=== PATIENT | male | born 1985 | race American Indian/Alaskan Native ===

== ENCOUNTER 2016-08-08 01:03 | Emergency (ER) | payer OTHER ==
[2016-08-08 01:35] VITALS: BP 153/82; PULSE 71; RESP 18; TEMP 97.7; O2SAT 96
--- NOTE | 2016-08-08 02:27 | C.PDOC ---
History Of Present Illness 30 year old patient presents to the ED complaining of left elbow swelling for about 1.5 weeks. Patient denies any pain, trauma, fever, numbness, or weakness. Time Seen by Provider: 08/08/16 02:04 Chief Complaint (Nursing): Upper Extremity Problem/Injury History Per: Patient History/Exam Limitations: no limitations Onset/Duration Of Symptoms: Other (1.5 weeks) Current Symptoms Are (Timing): Still Present Quality: Other (swelling) Severity: None Pain Scale Rating Of: 0 Exacerbating Factor(s): Nothing Recent travel outside of the [place]: No Past Medical History Reviewed: Historical Data, Nursing Documentation, Vital Signs Vital Signs: Last Vital Signs Temp 97.7 F 08/08/16 01:30 Pulse 71 08/08/16 01:30 Resp 18 08/08/16 01:30 BP 153/82 H 08/08/16 01:30 Pulse Ox 96 08/08/16 03:29 - Medical History PMH: Asthma Family History: States: Unknown Family Hx - Social History Hx Tobacco Use: No Hx Alcohol Use: Yes Hx Substance Use: No - Immunization History Hx Tetanus Toxoid Vaccination: No Hx Influenza Vaccination: No Hx Pneumococcal Vaccination: No Review Of Systems Except As Marked, All Systems Reviewed And Found Negative. Constitutional: Negative for: Fever Musculoskeletal: Positive for: Other (left elbow swelling) Neurological: Negative for: Weakness, Numbness Physical Exam - Physical Exam Appears: Non-toxic, No Acute Distress Skin: Warm, Dry Eye(s): bilateral: PERRL, EOMI Cardiovascular: Rhythm Regular Respiratory: No Accessory Muscle Use Extremity: Normal ROM, No Pedal Edema, No Calf Tenderness, Capillary Refill (<2 seconds), No Deformity, Swelling (minimal effusion to the left elbow (+)normal pulse (+)normal sensation (+)normal ROM (-)tenderness (-)fluctuance (-)warmth) Neurological/Psych: Oriented x3, Normal Motor, Normal Sensation ED Course And Treatment O2 Sat by Pulse Oximetry: 96 (RA) Pulse Ox Interpretation: Normal Progress Note: Patient is advised to take Motrin to alleviate the symptoms. Patient is instructed to follow up with PMD for further evaluation. Return if symptoms worsen. 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 - Scribe Statement The provider has reviewed the documentation as recorded by the Scribe Addie Rao All medical record entries made by the Scribe were at my direction and personally dictated by me. I have reviewed the chart and agree that the record accurately reflects my personal performance of the history, physical exam, medical decision making, and the department course for this patient. I have also personally directed, reviewed, and agree with the discharge instructions and disposition.
== END 2016-08-08 02:20 | disposition home or self-care (01) ==
LOC: C.ER 01:03
DX: M71.522 Other bursitis, not elsewhere classified, left elbow (principal)

== ENCOUNTER 2016-11-15 09:17 | Emergency (ER) | payer OTHER ==
[2016-11-15 09:25] VITALS: BP 155/97; PULSE 83; TEMP 97.9; O2SAT 100
[2016-11-15] MEDS: Albuterol-Ipratrop 3 mg / 0.5 (3 ml) UD IH SCH ×3 (10:05→10:25)
[2016-11-15] MEDS ORDERED: Albuterol-Ipratrop 3 mg / 0.5 (3 ml) UD ONE (10:07)
--- NOTE | 2016-11-15 10:30 | C.PDOC ---
History Of Present Illness 30-year-old male, presents to the emergency department with complaints of asthma exacerbation. Patient states he has been experiencing worsening shortness of breath yesterday associated with wheezing. Patient states symptoms feel like prior asthma exacerbation. States he is using nebulizer at home with minimal relief, resulting in him coming to the ED for evaluation. Denies fevers , chest pain, or any other associated symptoms. No other complaints at this time. Time Seen by Provider: 11/15/16 09:34 Chief Complaint (Nursing): Shortness Of Breath History Per: Patient History/Exam Limitations: no limitations Onset/Duration Of Symptoms: Days Current Symptoms Are (Timing): Still Present Past Medical History Reviewed: Historical Data, Nursing Documentation, Vital Signs Vital Signs: Last Vital Signs Temp 97.9 F 11/15/16 09:24 Pulse 83 11/15/16 09:24 Resp 18 11/15/16 10:49 BP 155/97 H 11/15/16 09:24 Pulse Ox 100 11/15/16 16:35 - Medical History PMH: Asthma Family History: States: No Known Family Hx - Social History Hx Tobacco Use: No Hx Alcohol Use: Yes Hx Substance Use: No - Immunization History Hx Tetanus Toxoid Vaccination: No Hx Influenza Vaccination: No Hx Pneumococcal Vaccination: No Review Of Systems Except As Marked, All Systems Reviewed And Found Negative. Constitutional: Negative for: Fever Cardiovascular: Negative for: Chest Pain Respiratory: Positive for: Shortness of Breath, Wheezing Gastrointestinal: Negative for: Vomiting Physical Exam - Physical Exam Appears: Non-toxic, No Acute Distress Skin: Warm, Dry, No Rash Nose: Normal Oral Mucosa: Moist Neck: Normal ROM Cardiovascular: Rhythm Regular, No Murmur Respiratory: No Accessory Muscle Use, Wheezing (B/L expiratory) Extremity: Normal ROM Neurological/Psych: Oriented x3, Normal Speech ED Course And Treatment O2 Sat by Pulse Oximetry: 100 Progress Note: Treated with duonebs x 3 and prednisone 60 mg PO. On re- evaluation lungs clear, requesting discharge Reassessment Condition: Improved Disposition - Disposition Referrals: [facility] [Outside] [facility] [Outside] Disposition: HOME/ ROUTINE Disposition Time: 11:00 Condition: IMPROVED Additional Instructions: Return to ED if any increase symptoms Prescriptions: Albuterol HFA [Ventolin HFA 90 mcg/actuation (8 g)] 2 puff IH [id number] #1 puff predniSONE [Prednisone] 40 mg PO DAILY #4 tab Instructions: Asthma (ED) Forms: [employer] (Icelandic) - Clinical Impression Clinical Impression: Asthma, Asthma exacerbation - Scribe Statement The provider has reviewed the documentation as recorded by the Scribe (Sergo Thakur) All medical record entries made by the Scribe were at my direction and personally dictated by me. I have reviewed the chart and agree that the record accurately reflects my personal performance of the history, physical exam, medical decision making, and the department course for this patient. I have also personally directed, reviewed, and agree with the discharge instructions and disposition.
[2016-11-15 11:02] VITALS: RESP 18
== END 2016-11-15 10:49 | disposition home or self-care (01) ==
LOC: C.ER 09:17
DX: J45.901 Unspecified asthma with (acute) exacerbation (principal)

== ENCOUNTER 2016-12-28 10:17 | Emergency (ER) | payer SELFPAY ==
[2016-12-28 10:38] VITALS: BMI 27.3
[2016-12-28 10:40] VITALS: RESP 18; O2SAT 98
[2016-12-28] MEDS ORDERED: Albuterol-Ipratrop 3 mg / 0.5 (3 ml) UD INH STA (10:55)
[2016-12-28] MEDS ORDERED: Albuterol-Ipratrop 3 mg / 0.5 (3 ml) UD ONE (11:00)
--- NOTE | 2016-12-28 11:07 | C.PDOC ---
History Of Present Illness 31 y/o male with Hx of Asthma presents to ED with complaints of worsening sob for 1 week. Patient also reports non productive cough and states he ran out of albuterol pump and nebulizer 1 week ago. Patient has not been able to use inhaler as he normally does at night time and is requesting medication refill. Patient denies fever, chills and reports current symptoms consistent with prior asthma episodes. No other complaints at this time. Time Seen by Provider: 12/28/16 10:55 Chief Complaint (Nursing): Shortness Of Breath History Per: Patient History/Exam Limitations: no limitations Onset/Duration Of Symptoms: Days Current Symptoms Are (Timing): Still Present Initiating Event: Upper Respiratory Illness Past Medical History Reviewed: Historical Data, Nursing Documentation, Vital Signs Vital Signs: Last Vital Signs Temp 98.9 F 12/28/16 10:39 Pulse 81 12/28/16 10:39 Resp 18 12/28/16 10:39 BP 119/85 12/28/16 10:39 Pulse Ox 98 12/28/16 11:49 - Medical History PMH: Asthma Surgical History: No Surg Hx Family History: States: No Known Family Hx - Social History Hx Tobacco Use: No Hx Alcohol Use: Yes Hx Substance Use: No - Immunization History Hx Tetanus Toxoid Vaccination: No Hx Influenza Vaccination: Yes (01/2016) Hx Pneumococcal Vaccination: No Review Of Systems Except As Marked, All Systems Reviewed And Found Negative. Constitutional: Negative for: Fever, Chills Cardiovascular: Negative for: Chest Pain, Palpitations, Orthopnea, Edema, Light Headedness Respiratory: Positive for: Cough, Shortness of Breath, Wheezing. Negative for: SOB with Excertion, Sputum Gastrointestinal: Negative for: Nausea, Vomiting, Abdominal Pain, Diarrhea, Constipation Genitourinary: Negative for: Dysuria Skin: Negative for: Rash Physical Exam - Physical Exam Appears: Well, Non-toxic Skin: Normal Color, Warm, Dry, No Rash Head: Normacephalic, No Swelling Eye(s): bilateral: Normal Inspection, PERRL, EOMI Nose: Normal Oral Mucosa: Moist Throat: Normal, No Erythema Neck: Normal ROM, Supple Chest: Symmetrical Cardiovascular: Rhythm Regular, No Murmur Respiratory: No Rales, No Rhonchi, Wheezing, Other (Decreased air entry) Gastrointestinal/Abdominal: Soft, No Tenderness, No Distention, No Guarding, No Rebound Extremity: Normal ROM Neurological/Psych: Oriented x3 ED Course And Treatment O2 Sat by Pulse Oximetry: 98 (RA) Pulse Ox Interpretation: Normal Medical Decision Making Medical Decision Making: Plan: Medication Refill Prednisone Nebulizer Treatment Re-evaluation 11:46AM Patient reports the he feels better. Lungs cta b/l now. Repeat PF:500 Disposition - Disposition Disposition: HOME/ ROUTINE Disposition Time: 11:46 Condition: GOOD Additional Instructions: Take prednisone. Use albuterol as needed. Return to ED if condition worsens. Follow-up with PMD within 2 days. 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 - Scribe Statement The provider has reviewed the documentation as recorded by the Dionne Murry All medical record entries made by the Emaniibjonathan were at my direction and personally dictated by me. I have reviewed the chart and agree that the record accurately reflects my personal performance of the history, physical exam, medical decision making, and the department course for this patient. I have also personally directed, reviewed, and agree with the discharge instructions and disposition.
[2016-12-28 12:06] VITALS: BP 144/76; PULSE 82; TEMP 98.1
== END 2016-12-28 12:10 | disposition home or self-care (01) ==
LOC: C.ER 10:17
DX: J45.901 Unspecified asthma with (acute) exacerbation (principal)

== ENCOUNTER 2017-07-18 08:53 | Emergency (ER) | payer OTHER ==
[2017-07-18 08:53] VITALS: BMI 27.3
[2017-07-18 09:16] VITALS: O2SAT 99
[2017-07-18] MEDS ORDERED: Albuterol 0.083% Inhal Sol (2.5 mg/3 mL) UD INH STA (09:39)
--- NOTE | 2017-07-18 09:41 | C.PDOC ---
History Of Present Illness ASTHMA EXAC SINCE YEST. NO RELIEF W MDI OR HOME NEB. 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 Time Seen by Provider: 07/18/17 09:21 Chief Complaint (Nursing): Shortness Of Breath History Per: Patient History/Exam Limitations: no limitations Onset/Duration Of Symptoms: Days Current Symptoms Are (Timing): Still Present Associated Symptoms: denies: Fever, Chest Pain Severity: Moderate Past Medical History Reviewed: Historical Data, Nursing Documentation, Vital Signs Vital Signs: Last Vital Signs Temp 98.0 F 07/18/17 10:17 Pulse 73 07/18/17 10:17 Resp 18 07/18/17 10:17 BP 137/87 07/18/17 10:17 Pulse Ox 99 07/18/17 10:17 - Medical History PMH: Asthma Surgical History: No Surg Hx Family History: States: No Known Family Hx - Social History Hx Tobacco Use: No Hx Alcohol Use: Yes Hx Substance Use: No - Immunization History Hx Tetanus Toxoid Vaccination: No Hx Influenza Vaccination: No Hx Pneumococcal Vaccination: No Review Of Systems Except As Marked, All Systems Reviewed And Found Negative. Constitutional: Negative for: Fever, Chills Respiratory: Positive for: Other (asthma exacerbation) Physical Exam - Physical Exam Appears: Other (NARD) Skin: Normal Color, Warm Head: Atraumatic, Normacephalic Eye(s): bilateral: Normal Inspection Respiratory: Wheezing (occassional expiratory wheezing), Other (speaking full sentences, no retractions) Neurological/Psych: Oriented x3, Normal Speech ED Course And Treatment O2 Sat by Pulse Oximetry: 99 (RA) Pulse Ox Interpretation: Normal Medical Decision Making Medical Decision Making: Plan: --Nebulizer Treatment --Prednisone Disposition Counseled Patient/Family Regarding: Diagnosis, Need For Followup, Rx Given - Disposition Referrals: YOUR,PMD [Other] Disposition: HOME/ ROUTINE Disposition Time: 09:40 Condition: IMPROVED Prescriptions: Albuterol 0.083% [Albuterol Sulfate 3 Ml] 3 ml IH Q4 #30 neb predniSONE [Prednisone] 60 mg PO DAILY #12 tab Instructions: Asthma, Adult (DC) Forms: [employer] (Pashto), Work Excuse - Clinical Impression Clinical Impression: Asthma exacerbation - Scribe Statement The provider has reviewed the documentation as recorded by the Scribe Dillan Cantu Provider Attestation: All medical record entries made by the Scribe were at my direction and personally dictated by me. I have reviewed the chart and agree that the record accurately reflects my personal performance of the history, physical exam, medical decision making, and the department course for this patient. I have also personally directed, reviewed, and agree with the discharge instructions and disposition.
[2017-07-18] MEDS ORDERED: Albuterol 0.083% Inhal Sol (2.5 mg/3 mL) UD ONE (09:59)
[2017-07-18 10:18] VITALS: BP 137/87; PULSE 73; RESP 18; TEMP 98
== END 2017-07-18 10:22 | disposition home or self-care (01) ==
LOC: C.ER 08:53
DX: J45.901 Unspecified asthma with (acute) exacerbation (principal)

== ENCOUNTER 2017-09-25 22:16 | Inpatient (IN) | payer MEDICAID ==
[2017-09-25] MEDS ORDERED: Magnesium Sulfate 1 gm in D5W 1 GM/100 ML BAG IVPB ONE ×2 (22:29→22:36)
[2017-09-25 22:31] VITALS: BMI 30.4
[2017-09-25] MEDS ORDERED: Racepinephrine 2.25% Inhal Soln 0.5 ML UD ONE (22:36)
[2017-09-25] MEDS ORDERED: Propofol 10 mg/ml Inj (20 ML) ONE ×2 (22:39→22:48)
[2017-09-25 22:40] LABS: BASO # 0.2 K/uL (0.0-0.2); BASO % 1.3 % (0.0-2.0); EOS # 1.5 K/uL (0.0-0.7); EOS % 8.4 % (0.0-4.0); HEMOGLOBIN 16.8 g/dL (12.0-18.0); LYMPH # 7.9 K/uL (1.0-4.3); LYMPH % 43.3 % (20.0-40.0); MEAN CORPUSCULAR HEMOGLOBIN 30.1 pg (27.0-31.0); MEAN CORPUSCULAR HGB CONC 34.2 g/dL (33.0-37.0); MEAN PLATELET VOLUME 8.7 fL (7.2-11.7); MONO % 10.9 % (0.0-10.0); NEUT # 6.5 K/uL (1.8-7.0); NEUT % 36.1 % (50.0-75.0); NRBC % 0.1 % (0.0-2.0); RBC 5.58 Mil/uL (4.40-5.90); WHITE BLOOD COUNT 18.1 K/uL (4.8-10.8)
[2017-09-25] MEDS: Albuterol-Ipratrop 3 mg / 0.5 (3 ml) UD IH SCH ×3 (22:40→23:10)
[2017-09-25 22:48] LABS: PROTHROMBIN TIME 11.4 SECONDS (9.7-12.2)
[2017-09-25] MEDS ORDERED: Propofol 10 mg/ml 1,000 MG/100 ML VIAL ONE (22:49)
[2017-09-25] MEDS ORDERED: Benzoin Compound Tincture (60 ml) ONE (22:50)
[2017-09-25 22:55] LABS: ALB/GLOB RATIO 1.1 (1.0-2.1); ALBUMIN 4.8 g/dL (3.5-5.0); ALT/SGPT 50 U/L (21-72); AST/SGOT 62 U/L (17-59); BLOOD UREA NITROGEN 13 mg/dL (9-20); CALCIUM 9.6 mg/dl (8.6-10.4); GFR AFRICAN-AMERICAN > 60; GFR NON-AFRICAN AMERICAN > 60
[2017-09-25] MEDS ORDERED: Rocuronium 10 mg/ml (5 ml) IV ONE ×2 (22:59→23:20)
--- NOTE | 2017-09-25 22:59 | C.PDOC ---
History Of Present Illness pt walked in complaining of shortness of breath. audible wheezing. Received 125 solumedrol, duoneb, as patient continued to deteriorate. got also terbutaline and magnesium sulfate. Pt became severely agitated, combative, thrashing , requiring intubation Time Seen by Provider: 09/25/17 22:59 Chief Complaint (Nursing): Respiratory Distress History Per: Patient History/Exam Limitations: clinical condition Onset/Duration Of Symptoms: Unknown Current Symptoms Are (Timing): Worse Initiating Event: Upper Respiratory Illness Exacerbating Factor(s): Coughing Current Respiratory Medications: See Home Med List Severity: Severe Pain Scale Rating Of: 10 Associated Symptoms: denies: Fever, Chills Reports Recently: Seen In ED Additional History Per: Patient Past Medical History Vital Signs: Last Vital Signs Temp Pulse 110 H 09/25/17 22:20 Resp 26 H 09/25/17 22:20 BP Pulse Ox 92 L 09/25/17 23:11 - Medical History PMH: Asthma Family History: States: Unknown Family Hx - Social History Hx Tobacco Use: No Hx Alcohol Use: Yes Hx Substance Use: No - Immunization History Hx Tetanus Toxoid Vaccination: No Hx Influenza Vaccination: No Hx Pneumococcal Vaccination: No Review Of Systems Review Of Systems: ROS cannot be obtained secondary to pt's inabilty to answer questions. Physical Exam - Physical Exam Appears: In Acute Distress, Confused Skin: Diaphoretic Head: Normacephalic Eye(s): bilateral: Normal Inspection Nose: Flaring Oral Mucosa: Moist Neck: Supple Chest: Symmetrical Cardiovascular: Rhythm Regular Respiratory: Decreased Breath Sounds, Accessory Muscle Use, Rhonchi, Wheezing Gastrointestinal/Abdominal: Soft, No Tenderness Back: Normal Inspection Extremity: Normal ROM Extremity: Bilateral: Atraumatic Neurological/Psych: Other (agitated, combative, thrashing, not following commands) Gait: Unsteady ED Course And Treatment - Laboratory Results Result Diagrams: 09/25/17 22:35 09/25/17 22:35 O2 Sat by Pulse Oximetry: 92 Pulse Ox Interpretation: Abnormal - Radiology CXR: Interpreted by Me, Viewed By Me CXR Interpretation: Yes: Other (ett in place). No: Infiltrates, Fracture, Pnemothorax Progress Note: spoke with dr vega icu- will come and see the pt in the ed. spoke with the family at bedside regarding the patient's condition Critical Care Time - Critical Care Note Total Time (in mins): 85 Documented critical care: time excludes all time spent performing seperately billable procedures. Endotracheal Intubation - Endotracheal Intubation Intubated With ETT Size: 80 Indication: Respiratory Failure Intubated: Orally Pre-Intubation Airway Assessment: Ventilated And Oxygenated Paralyzed With: Succinylcholine, Rocuronium Post-Intubation Assessment: ETT Secured AT (cm): (26), Breath Sounds Equal Bilat , Placement Confirmed Via CXR, Color Change W/End Tidal CO2 Detector, Oxygen Saturation: (100) Disposition Discussed With Dr.: Israel Briceño Counseled Patient/Family Regarding: Studies Performed, Diagnosis - Disposition Disposition: HOSPITALIZED Disposition Time: 22:59 Condition: CRITICAL Forms: [employer] (Surinamese) - POA Present On Arrival: None - Clinical Impression Clinical Impression: Respiratory failure, Status asthmaticus Decision To Admit - Pt Status Changed To: Hospital Disposition Of: Inpatient - Admit Certification Admit to Inpatient:: After my assessment, the patient will require hospitalization for at least two midnights. This is because of the severity of symptoms shown, intensity of services needed, and/or the medical risk in this patient being treated as an outpatient. - InPatient: Physician Admission Certification: I certify that this patient requires 2 or more midnights of care for the following reason:: After my assessment, the patient will require hospitalization for at least two midnights. This is because of the severity of symptoms shown, intensity of services needed, and/or the medical risk in this patient being treated as an outpatient. - . Bed Request Type: ICU Admitting Physician: Israel Briceño Patient Diagnosis: Respiratory failure, Status asthmaticus
[2017-09-25] MEDS ORDERED: Propofol 10 mg/ml Inj (20 ML) IV ONE (23:00)
[2017-09-25] MEDS ORDERED: Succinylcholine Chloride 20 mg/ml Syr (5 ml) IV STA (23:01)
[2017-09-25] MEDS: Magnesium Sulfate 1 gm in D5W 1 GM/100 ML BAG IVPB SCH (23:47)
--- NOTE | 2017-09-25 23:49 | CP.PCM.HP ---
<Gemma Girard - Last Filed: 09/26/17 00:05> History of Present Illness - History of Present Illness History of Present Illness: CC asthma exacerbation HPI 31M presents with asthma exacerbation not relieved with treatment. Patient became combative due to hypoxia per ED physician and ended up needing intubation. This is the first time the patient has been intubated for status asthmaticus. Patient has been to ED multiple times for SOB and asthma. Patient takes nebulizer at home. Patient seen and examined at bedside post intubation on PRVC A/C TV 530 FIO2 60% PEEP 5 RR 18, ABG with shock drawn, Drug Screen drawn, not resulted. Per Last H&P note in 2014 PMD: Dr Castillo Past Medical History: GERD and asthma PSH: Denies Family History: cousins have asthma Social History: denies smoking or drugs, social drinker (a beer every two weeks) . works as cars salesman Allergies: pet dander Present on Admission - Present on Admission Any Indicators Present on Admission: No History of DVT/PE: No History of Uncontrolled Diabetes: No Urinary Catheter: No Review of Systems - Review of Systems Systems not reviewed;Unavailable: Intubated Past Patient History - Infectious Disease Hx of Infectious Diseases: None - Past Medical History & Family History Past Medical History?: Yes - Past Social History Smoking Status: Current Some Days Smoker - PULMONARY Hx Asthma: Yes - MUSCULOSKELETAL/RHEUMATOLOGICAL Hx Falls: No - GASTROINTESTINAL Hx Gastrointestinal Disorders: Yes Hx Gastroesophageal Reflux: Yes - PSYCHIATRIC Hx Substance Use: No - SURGICAL HISTORY Hx Surgeries: No - ANESTHESIA Hx Anesthesia: Yes Meds Allergies/Adverse Reactions: Allergies Allergy/AdvReac Type Severity Reaction Status Date / Time pollen extracts Allergy Verified 09/25/17 22:36 cats Allergy Uncoded 09/25/17 22:36 dogs Allergy Uncoded 09/25/17 22:36 Physical Exam - Constitutional Additional comments: intubated and sedated. diaphoretic - Head Exam Head Exam: ATRAUMATIC, NORMAL INSPECTION, NORMOCEPHALIC - Eye Exam Eye Exam: absent: EOMI - ENT Exam ENT Exam: Mucous Membranes Moist - Neck Exam Neck exam: Negative for: Lymphadenopathy, Thyromegaly - Respiratory Exam Respiratory Exam: Wheezes, NORMAL BREATHING PATTERN. absent: Accessory Muscle Use, Decreased Breath Sounds, Rales - Cardiovascular Exam Cardiovascular Exam: REGULAR RHYTHM, +S1, +S2. absent: Bradycardia, Tachycardia - Extremities Exam Extremities exam: Positive for: normal capillary refill, normal inspection. Negative for: pedal edema, tenderness - Skin Skin Exam: Diaphoretic Additional comments: cool Results - Vital Signs Recent Vital Signs: Last Vital Signs Temp Pulse 110 H 09/25/17 22:20 Resp 26 H 09/25/17 22:20 BP Pulse Ox 92 L 09/25/17 23:11 - Labs Result Diagrams: 09/25/17 22:35 09/25/17 22:35 Labs: Laboratory Results - last 24 hr 09/25/17 09/25/17 09/25/17 22:35 22:35 22:35 WBC 18.1 H D RBC 5.58 Hgb 16.8 Hct 49.1 MCV 88.0 MCH 30.1 MCHC 34.2 RDW 14.0 Plt Count 226 MPV 8.7 Neut % (Auto) 36.1 L Lymph % (Auto) 43.3 H Geary % (Auto) 10.9 H Eos % (Auto) 8.4 H Baso % (Auto) 1.3 Neut # (Auto) 6.5 Lymph # (Auto) 7.9 H Geary # (Auto) 2.0 H Eos # (Auto) 1.5 H Baso # (Auto) 0.2 Differential Comment PT 11.4 INR 1.0 APTT 42 H Sodium 145 Potassium 5.3 H Chloride 108 H Carbon Dioxide 21 L Anion Gap 21 H BUN 13 Creatinine 1.3 Est GFR ( Amer) > 60 Est GFR (Non-Af Amer) > 60 Random Glucose 110 Calcium 9.6 Total Bilirubin 1.3 AST 62 H ALT 50 Alkaline Phosphatase 66 Troponin I < 0.0120 Total Protein 9.1 H Albumin 4.8 Globulin 4.3 H Albumin/Globulin Ratio 1.1 Assessment & Plan - Assessment and Plan (Free Text) Assessment: Neuro Sedation: Propofol 35 mcg/kg/min Intubated and Sedated GCS 7T ([id number])T Pulm status asthmaticus/Asthma exacerbation, needing intubation in ER In ER: Solumedrol 125 mg IVP (per ED note, not in JUN) Magnesium 1 gm Q30m x 2 rocuronium 10 mg IP x 2 Propofol 35mcg/kg/min Labs: f/u ABG shock f/u urine drug screen Imaging: CXR no infiltrates, no active disease Medications: management per ICU Cardio telemetry Mora in place maintain mora care Prophylaxis scds NS @ 150cc/hr discussed with Dr. Keyanna Girard DO PGY1 - Date & Time Date: 09/26/17 Time: 00:11 <Israel Briceño - Last Filed: 09/26/17 20:07> Results - Vital Signs Recent Vital Signs: Last Vital Signs Temp 98.5 F 09/26/17 16:00 Pulse 97 H 09/26/17 19:00 Resp 14 09/26/17 19:00 BP 148/94 H 09/26/17 18:21 Pulse Ox 100 09/26/17 19:00 - Labs Result Diagrams: 09/26/17 06:14 09/26/17 06:13 Labs: Laboratory Results - last 24 hr 09/25/17 09/25/17 09/25/17 22:35 22:35 22:35 WBC 18.1 H D RBC 5.58 Hgb 16.8 Hct 49.1 MCV 88.0 MCH 30.1 MCHC 34.2 RDW 14.0 Plt Count 226 MPV 8.7 Neut % (Auto) 36.1 L Lymph % (Auto) 43.3 H Geary % (Auto) 10.9 H Eos % (Auto) 8.4 H Baso % (Auto) 1.3 Neut # (Auto) 6.5 Lymph # (Auto) 7.9 H Geary # (Auto) 2.0 H Eos # (Auto) 1.5 H Baso # (Auto) 0.2 Neutrophils % (Manual) Band Neutrophils % Lymphocytes % (Manual) Monocytes % (Manual) Metamyelocytes % Differential Comment Platelet Estimate RBC Morphology PT 11.4 INR 1.0 APTT 42 H Puncture Site pCO2 pO2 HCO3 ABG pH ABG Total CO2 ABG O2 Saturation ABG Base Excess ABG Hemoglobin ABG Carboxyhemoglobin POC ABG HHb (Measured) ABG Methemoglobin Darin Test ABG Potassium A-a O2 Difference Respiratory Index Hgb O2 Saturation Glucose Lactate Vent Mode Mechanical Rate FiO2 Tidal Volume PEEP Crit Value Called To Crit Value Called By Crit Value Read Back Blood Gas Notified Time Sodium 145 Potassium 5.3 H Chloride 108 H Carbon Dioxide 21 L Anion Gap 21 H BUN 13 Creatinine 1.3 Est GFR ( Amer) > 60 Est GFR (Non-Af Amer) > 60 Random Glucose 110 Lactic Acid Calcium 9.6 Phosphorus Magnesium Total Bilirubin 1.3 AST 62 H ALT 50 Alkaline Phosphatase 66 Troponin I < 0.0120 Total Protein 9.1 H Albumin 4.8 Globulin 4.3 H Albumin/Globulin Ratio 1.1 Procalcitonin Arterial Blood Potassium Urine Color Urine Clarity Urine pH Ur Specific [place] Urine Protein Urine Glucose (UA) Urine Ketones Urine Blood Urine Nitrate Urine Bilirubin Urine Urobilinogen Ur Leukocyte Esterase Urine WBC (Auto) Urine RBC (Auto) Ur Squamous Epith Cells Uric Acid Crystals Urine Bacteria Urine Opiates Screen Urine Methadone Screen Ur Barbiturates Screen Ur Phencyclidine Scrn Ur Amphetamines Screen U Benzodiazepines Scrn U Oth Cocaine Metabols U Cannabinoids Screen 09/25/17 09/25/17 09/25/17 23:33 23:57 23:57 WBC RBC Hgb Hct MCV MCH MCHC RDW Plt Count MPV Neut % (Auto) Lymph % (Auto) Geary % (Auto) Eos % (Auto) Baso % (Auto) Neut # (Auto) Lymph # (Auto) Geary # (Auto) Eos # (Auto) Baso # (Auto) Neutrophils % (Manual) Band Neutrophils % Lymphocytes % (Manual) Monocytes % (Manual) Metamyelocytes % Differential Comment Platelet Estimate RBC Morphology PT INR APTT Puncture Site R rad pCO2 82 H* pO2 281 H HCO3 17.2 L ABG pH 7.04 L* ABG Total CO2 24.7 ABG O2 Saturation 101.0 H ABG Base Excess -10.0 L ABG Hemoglobin ABG Carboxyhemoglobin POC ABG HHb (Measured) ABG Methemoglobin Darin Test Pos ABG Potassium 4.0 A-a O2 Difference 44.0 Respiratory Index 0.2 Hgb O2 Saturation Glucose 255 H Lactate 3.4 H Vent Mode Prvc Mechanical Rate 18 FiO2 60.0 Tidal Volume 550 PEEP 5 Crit Value Called To Dr lutz Crit Value Called By Jordyn petty rt Crit Value Read Back Y Blood Gas Notified Time 15 Sodium 138.0 Potassium Chloride 105.0 Carbon Dioxide Anion Gap BUN Creatinine Est GFR ( Amer) Est GFR (Non-Af Amer) Random Glucose Lactic Acid Calcium Phosphorus Magnesium Total Bilirubin AST ALT Alkaline Phosphatase Troponin I Total Protein Albumin Globulin Albumin/Globulin Ratio Procalcitonin Arterial Blood Potassium 4.0 Urine Color Yellow Urine Clarity Hazy Urine pH 6.0 Ur Specific [place] 1.010 Urine Protein 3+ H Urine Glucose (UA) 2+ H Urine Ketones Negative Urine Blood Negative Urine Nitrate Negative Urine Bilirubin Negative Urine Urobilinogen Normal Ur Leukocyte Esterase Neg Urine WBC (Auto) 1 Urine RBC (Auto) 1 Ur Squamous Epith Cells < 1 Uric Acid Crystals Urine Bacteria Urine Opiates Screen Negative Urine Methadone Screen Negative Ur Barbiturates Screen Negative Ur Phencyclidine Scrn Negative Ur Amphetamines Screen Negative U Benzodiazepines Scrn Negative U Oth Cocaine Metabols Negative U Cannabinoids Screen Positive H 09/26/17 09/26/17 09/26/17 05:27 06:13 06:14 WBC 14.2 H RBC 4.85 Hgb 14.7 D Hct 42.3 MCV 87.4 MCH 30.3 MCHC 34.7 RDW 13.5 Plt Count 229 MPV 8.2 Neut % (Auto) 91.9 H Lymph % (Auto) 5.8 L Geary % (Auto) 2.1 Eos % (Auto) 0.1 Baso % (Auto) 0.1 Neut # (Auto) 13.0 H Lymph # (Auto) 0.8 L Geary # (Auto) 0.3 Eos # (Auto) 0.0 Baso # (Auto) 0.0 Neutrophils % (Manual) 87 H Band Neutrophils % 8 H Lymphocytes % (Manual) 3 L Monocytes % (Manual) 1 Metamyelocytes % 1 H Differential Comment Platelet Estimate Normal RBC Morphology Normal PT INR APTT Puncture Site Rad pCO2 32 L pO2 236 H HCO3 21.4 ABG pH 7.39 ABG Total CO2 20.4 L ABG O2 Saturation 100.2 H ABG Base Excess -4.5 L ABG Hemoglobin 14.9 ABG Carboxyhemoglobin 1.5 POC ABG HHb (Measured) -0.2 L ABG Methemoglobin 1.3 Darin Test Pos ABG Potassium A-a O2 Difference 9.0 Respiratory Index 0 Hgb O2 Saturation 97.3 Glucose Lactate Vent Mode Prvc Mechanical Rate 22 FiO2 40.0 Tidal Volume 600 PEEP 5 Crit Value Called To Crit Value Called By Crit Value Read Back Blood Gas Notified Time Sodium 143 Potassium 4.1 Chloride 107 Carbon Dioxide 19 L Anion Gap 22 H BUN 17 Creatinine 1.8 H Est GFR ( Amer) 54 Est GFR (Non-Af Amer) 45 Random Glucose 183 H Lactic Acid Calcium 8.6 Phosphorus 1.8 L Magnesium 3.0 H Total Bilirubin 0.5 AST 55 ALT 58 Alkaline Phosphatase 63 Troponin I Total Protein 7.2 Albumin 4.0 Globulin 3.2 Albumin/Globulin Ratio 1.2 Procalcitonin Arterial Blood Potassium Urine Color Urine Clarity Urine pH Ur Specific [place] Urine Protein Urine Glucose (UA) Urine Ketones Urine Blood Urine Nitrate Urine Bilirubin Urine Urobilinogen Ur Leukocyte Esterase Urine WBC (Auto) Urine RBC (Auto) Ur Squamous Epith Cells Uric Acid Crystals Urine Bacteria Urine Opiates Screen Urine Methadone Screen Ur Barbiturates Screen Ur Phencyclidine Scrn Ur Amphetamines Screen U Benzodiazepines Scrn U Oth Cocaine Metabols U Cannabinoids Screen 09/26/17 09/26/17 09/26/17 10:24 10:46 13:09 WBC RBC Hgb Hct MCV MCH MCHC RDW Plt Count MPV Neut % (Auto) Lymph % (Auto) Geary % (Auto) Eos % (Auto) Baso % (Auto) Neut # (Auto) Lymph # (Auto) Geary # (Auto) Eos # (Auto) Baso # (Auto) Neutrophils % (Manual) Band Neutrophils % Lymphocytes % (Manual) Monocytes % (Manual) Metamyelocytes % Differential Comment Platelet Estimate RBC Morphology PT INR APTT Puncture Site pCO2 pO2 HCO3 ABG pH ABG Total CO2 ABG O2 Saturation ABG Base Excess ABG Hemoglobin ABG Carboxyhemoglobin POC ABG HHb (Measured) ABG Methemoglobin Darin Test ABG Potassium A-a O2 Difference Respiratory Index Hgb O2 Saturation Glucose Lactate Vent Mode Mechanical Rate FiO2 Tidal Volume PEEP Crit Value Called To Crit Value Called By Crit Value Read Back Blood Gas Notified Time Sodium Potassium Chloride Carbon Dioxide Anion Gap BUN Creatinine Est GFR ( Amer) Est GFR (Non-Af Amer) Random Glucose Lactic Acid 3.2 H Calcium Phosphorus Magnesium Total Bilirubin AST ALT Alkaline Phosphatase Troponin I Total Protein Albumin Globulin Albumin/Globulin Ratio Procalcitonin 2.42 H Arterial Blood Potassium Urine Color Straw Urine Clarity Hazy Urine pH 5.0 Ur Specific [place] 1.003 Urine Protein Negative Urine Glucose (UA) Negative Urine Ketones Negative Urine Blood 3+ H Urine Nitrate Negative Urine Bilirubin Negative Urine Urobilinogen Normal Ur Leukocyte Esterase Neg Urine WBC (Auto) 1 Urine RBC (Auto) 2 Ur Squamous Epith Cells < 1 Uric Acid Crystals Few H Urine Bacteria Rare Urine Opiates Screen Urine Methadone Screen Ur Barbiturates Screen Ur Phencyclidine Scrn Ur Amphetamines Screen U Benzodiazepines Scrn U Oth Cocaine Metabols U Cannabinoids Screen Assessment & Plan - Date & Time Date: 09/26/17 (I have seen and examined the patient. I agree with the findings and plan of care as documented by Dr. Girard. Patient with exacerbation of asthma. Respiratory failture. Intubated in ED. Admit to ICU. Further management as per ICU. Monitor for acute changes.) Time: 20:06 Attending/Attestation - Attestation I have personally seen and examined this patient.: Yes I have fully participated in the care of the patient.: Yes I have reviewed all pertinent clinical information: Yes
[2017-09-25] MEDS: Propofol 10 mg/ml 1,000 MG/100 ML VIAL IV PRN (23:53)
--- NOTE | 2017-09-26 00:06 | CP.PCM.CON ---
History of Present Illness - History of Present Illness History of Present Illness: 31 y/o male with h/o asthma intubated in ER for respiratory distress and hypoxia. ER note-pt walked in complaining of shortness of breath. audible wheezing. Received 125 solumedrol, duoneb, as patient continued to deteriorate. got also terbutaline and magnesium sulfate. Pt became severely agitated, combative, thrashing , requiring intubation spoke to family(mother,aunt and brother of patient)-no previous intubations.doesnot know of any recent complaints brother states that patient smokes marjuanapatient sedated,paralysed,no review of symptoms or history Past Patient History - Infectious Disease Hx of Infectious Diseases: None - Past Medical History & Family History Past Medical History?: Yes - Past Social History Smoking Status: Current Some Days Smoker Drugs: Other (smokes marjuana) - PULMONARY Hx Asthma: Yes - MUSCULOSKELETAL/RHEUMATOLOGICAL Hx Falls: No - GASTROINTESTINAL Hx Gastrointestinal Disorders: Yes Hx Gastroesophageal Reflux: Yes - PSYCHIATRIC Hx Substance Use: No - SURGICAL HISTORY Hx Surgeries: No - ANESTHESIA Hx Anesthesia: Yes Meds Allergies/Adverse Reactions: Allergies Allergy/AdvReac Type Severity Reaction Status Date / Time pollen extracts Allergy Verified 09/25/17 22:36 cats Allergy Uncoded 09/25/17 22:36 dogs Allergy Uncoded 09/25/17 22:36 - Medications Medications: Current Medications Albuterol/Ipratropium (Duoneb 3 Mg/0.5 Mg (3 Ml) Ud) 3 ml INH RQ4 COLLEEN Propofol (Diprivan) 1,000 mg in 100 mls @ 17.01 mls/hr IV .Q5H53M PRN; 25 MCG/ KG/MIN PRN Reason: TITRATE PER MD ORDER Last Admin: 09/25/17 23:53 Dose: 17.01 mls/hr Magnesium Sulfate/Dextrose (Magnesium Sulfate 1 Gm/100 Ml D5w) 1 gm in 100 mls @ 300 mls/hr IVPB Q30M COLLEEN Stop: 09/26/17 00:34 Last Admin: 09/25/17 23:47 Dose: 300 mls/hr Physical Exam - Constitutional Additional comments: orally intubated,sedated - Head Exam Head Exam: ATRAUMATIC, NORMAL INSPECTION, NORMOCEPHALIC - Eye Exam Eye Exam: Normal appearance. absent: Conjunctival injection Pupil Exam: Miosis - ENT Exam ENT Exam: Mucous Membranes Moist - Neck Exam Neck exam: Positive for: Normal Inspection. Negative for: Lymphadenopathy - Respiratory Exam Respiratory Exam: Rhonchi Additional comments: orally intubated - Cardiovascular Exam Cardiovascular Exam: REGULAR RHYTHM - GI/Abdominal Exam GI & Abdominal Exam: Normal Bowel Sounds, Soft - Extremities Exam Extremities exam: Positive for: normal inspection, pedal pulses present. Negative for: pedal edema - Neurological Exam Additional comments: sedated - Skin Skin Exam: Normal Color Results - Vital Signs Recent Vital Signs: Last Vital Signs Temp Pulse 110 H 09/25/17 22:20 Resp 36 H 09/25/17 22:30 BP Pulse Ox 92 L 09/25/17 23:57 - Labs Result Diagrams: 09/25/17 22:35 09/25/17 22:35 Labs: Laboratory Results - last 24 hr 09/25/17 09/25/17 09/25/17 22:35 22:35 22:35 WBC 18.1 H D RBC 5.58 Hgb 16.8 Hct 49.1 MCV 88.0 MCH 30.1 MCHC 34.2 RDW 14.0 Plt Count 226 MPV 8.7 Neut % (Auto) 36.1 L Lymph % (Auto) 43.3 H Simpson % (Auto) 10.9 H Eos % (Auto) 8.4 H Baso % (Auto) 1.3 Neut # (Auto) 6.5 Lymph # (Auto) 7.9 H Simpson # (Auto) 2.0 H Eos # (Auto) 1.5 H Baso # (Auto) 0.2 Differential Comment PT 11.4 INR 1.0 APTT 42 H Sodium 145 Potassium 5.3 H Chloride 108 H Carbon Dioxide 21 L Anion Gap 21 H BUN 13 Creatinine 1.3 Est GFR ( Amer) > 60 Est GFR (Non-Af Amer) > 60 Random Glucose 110 Calcium 9.6 Total Bilirubin 1.3 AST 62 H ALT 50 Alkaline Phosphatase 66 Troponin I < 0.0120 Total Protein 9.1 H Albumin 4.8 Globulin 4.3 H Albumin/Globulin Ratio 1.1 - EKG Data EKG comments: pending - Imaging and Cardiology Chest x-ray Status: Image reviewed by me Assessment & Plan - Assessment and Plan (Free Text) Assessment: Respiratory failure/acute exacerbation of asthma Bronchodilators,steroids continue ventilator support Hyperkalemia-f/u with rpt lytes elevated AST
[2017-09-26 00:12] LABS: ABG ALLEN TEST POS; ARTERIAL BLOOD GAS HCO3 17.2 mmol/L (21-28); ARTERIAL BLOOD GAS PCO2 82 mm/Hg (35-45); ARTERIAL BLOOD GAS PH 7.04 (7.35-7.45); ARTERIAL BLOOD GAS PO2 281 mm/Hg (80-100); ARTERIAL BLOOD GAS TCO2 24.7 mmol/L (22-28)
[2017-09-26 00:16] LABS: BARBITURATES, UR NEGATIVE (NEGATIVE); BENZODIAZEPINES, UR NEGATIVE (NEGATIVE); OPIATES, UR NEGATIVE (NEGATIVE); PHENCYCLIDINE, UR NEGATIVE (NEGATIVE)
[2017-09-26 00:19] LABS: SQUAMOUS EPITHIAL < 1 /hpf (0-5); URINE BILIRUBIN NEGATIVE (NEGATIVE); URINE CLARITY Hazy (Clear); URINE COLOR Yellow (YELLOW); URINE GLUCOSE (UA) 2+ mg/dL (Normal); URINE LEUKOCYTE ESTERASE NEG Leu/uL (Negative); URINE PROTEIN 3+ mg/dL (NEGATIVE); URINE UROBILINOGEN NORMAL mg/dL (0.2-1.0)
[2017-09-26] MEDS ORDERED: Rocuronium 10 mg/ml (5 ml) IV ONE ×2 (00:20→20:20)
[2017-09-26] MEDS ORDERED: Sodium Bicarbonate (8.4%) 50 Meq Syringe IVP ONE (00:24)
[2017-09-26 00:27] LABS: URINE BLOOD NEGATIVE (NEGATIVE)
[2017-09-26] MEDS: Magnesium Sulfate 1 gm in D5W 1 GM/100 ML BAG IVPB SCH (01:08)
[2017-09-26] MEDS: Propofol 10 mg/ml 1,000 MG/100 ML VIAL IV PRN ×4 (01:15→10:50)
[2017-09-26] MEDS: Dexmedetomidine Hydrochloride 200 MCG in Sodium Chloride 0.9% 48 ML IV PRN ×6 (01:20→11:40)
[2017-09-26] MEDS: Albuterol-Ipratrop 3 mg / 0.5 (3 ml) UD INH SCH ×7 (01:35→23:29)
[2017-09-26] MEDS: Dextrose 5%/0.45% NS 1,000 ML IV SCH ×3 (01:36→22:23)
[2017-09-26 05:45] LABS: ABG ALLEN TEST POS; ARTERIAL BLOOD GAS HCO3 21.4 mmol/L (21-28); ARTERIAL BLOOD GAS HEMOGLOBIN 14.9 g/dL (11.7-17.4); ARTERIAL BLOOD GAS O2 SAT 100.2 % (95-98); ARTERIAL BLOOD GAS PCO2 32 mm/Hg (35-45); ARTERIAL BLOOD GAS PH 7.39 (7.35-7.45); ARTERIAL BLOOD GAS PO2 236 mm/Hg (80-100); ARTERIAL BLOOD GAS TCO2 20.4 mmol/L (22-28)
[2017-09-26 06:23] LABS: BASO % 0.1 % (0.0-2.0); EOS % 0.1 % (0.0-4.0); HEMOGLOBIN 14.7 g/dL (12.0-18.0); LYMPH # 0.8 K/uL (1.0-4.3); LYMPH % 5.8 % (20.0-40.0); MEAN CELL VOLUME 87.4 fL (80.0-94.0); MEAN CORPUSCULAR HEMOGLOBIN 30.3 pg (27.0-31.0); MEAN CORPUSCULAR HGB CONC 34.7 g/dL (33.0-37.0); MEAN PLATELET VOLUME 8.2 fL (7.2-11.7); MONO # 0.3 K/uL (0.0-0.8); MONO % 2.1 % (0.0-10.0); NEUT % 91.9 % (50.0-75.0); NRBC % 0.1 % (0.0-2.0); PLATELET COUNT 229 K/uL (130-400); RBC 4.85 Mil/uL (4.40-5.90); RED CELL DISTRIBUTION WIDTH 13.5 % (11.5-14.5); WHITE BLOOD COUNT 14.2 K/uL (4.8-10.8)
[2017-09-26 06:39] LABS: ALB/GLOB RATIO 1.2 (1.0-2.1); CALCIUM 8.6 mg/dl (8.6-10.4)
[2017-09-26 08:11] LABS: BANDS 8 % (0-2); LYMPHOCYTE 3 % (20-40); METAMYELOCYTE 1 % (0-0); MONOCYTE 1 % (0-10); NEUTROPHIL 87 % (50-75); PLATELET ESTIMATE NORMAL (NORMAL); TOTAL CELLS COUNTED 100
--- NOTE | 2017-09-26 08:55 | RAD ---
Chest x-ray single frontal view History: Tube placement. Comparison: None available. Findings: Endotracheal tube extending into the mid thoracic trachea. No focal infiltrate or effusion. Heart size within normal limits. Impression Endotracheal tube extending into the mid thoracic trachea. No focal infiltrate or effusion. Heart size within normal limits.
--- NOTE | 2017-09-26 08:59 | RAD ---
Chest x-ray single frontal view History: Respiratory failure. Comparison: 09/25/2017 Findings: Lines and tubes in stable position. No focal infiltrate or effusion. Heart size within normal limits. Gaseous distention of the stomach. Impression: Lines and tubes in stable position. No focal infiltrate or effusion. Heart size within normal limits. Gaseous distention of the stomach.
[2017-09-26] MEDS: Potassium & Sodium Phosphate PO SCH ×2 (10:00→14:00)
[2017-09-26] MEDS ORDERED: Enoxaparin 40 mg Syringe SC SCH (10:00)
[2017-09-26] MEDS: Azithromycin 500 MG in Sodium Chloride 0.9% 250 ML IVPB SCH (11:00)
[2017-09-26 11:06] LABS: SQUAMOUS EPITHIAL < 1 /hpf (0-5); URINE BACTERIA RARE (<OCC); URINE BILIRUBIN NEGATIVE (NEGATIVE); URINE BLOOD 3+ (NEGATIVE); URINE CLARITY Hazy (Clear); URINE COLOR Straw (YELLOW); URINE LEUKOCYTE ESTERASE NEG Leu/uL (Negative); URINE PROTEIN NEGATIVE (NEGATIVE); URINE UROBILINOGEN NORMAL mg/dL (0.2-1.0)
--- NOTE | 2017-09-26 11:28 | CP.CCUPN ---
<Fernanda Aquino - Last Filed: 09/26/17 12:22> CCU Subjective - Physician Review Subjective (Free Text): Patient seen and examined at bedside. Intubated on PVRC 22//600/5. CCU Objective - Vital Signs / Intake & Output Vital Signs (Last 4 hours): Vital Signs BP 09/26/17 08:26 153/88 H Intake and Output (Last 8hrs): Intake & Output 09/25/17 09/26/17 09/26/17 22:59 06:59 14:59 Intake Total 891.8 395.8 Output Total 625 75 Balance 266.8 320.8 Weight 250 lb 265 lb Intake: IV 100 250 Intake, IV Amount 791.8 145.8 Left Distal Port Forearm 132.6 24.1 Left Forearm 159.2 21.7 Left Wrist 500 100 Output: Urine 625 75 Urethral (Dillard) 625 75 Stool 0 Other: Voiding Method Indwelling Catheter # Bowel Movements 0 0 - Physical Exam Head: Positive for: Atraumatic Pupils: Positive for: PERRL Extroacular Muscles: Positive for: EOMI Conjunctiva: Positive for: Normal Ears: Positive for: Normal Mouth: Positive for: Dry Neck: Positive for: Normal Range of Motion Respiratory/Chest: Positive for: Wheezes, Decreased Breath Sounds Cardiovascular: Positive for: Tachycardic Abdomen: Positive for: Normal Bowel Sounds. Negative for: Tenderness, Distention Upper Extremity: Positive for: Normal Inspection, Normal ROM, NORMAL PULSES, Capillary Refill < 2s Lower Extremity: Positive for: Normal Inspection, NORMAL PULSES, Neurovascularly Intact. Negative for: CALF TENDERNESS, Swelling, Erythema Skin: Positive for: Warm, Dry, Normal Color - Medications Active Medications: Active Medications Generic Name Dose Route Start Last Admin Trade Name Freq PRN Reason Stop Dose Admin Albuterol/Ipratropium 3 ml 09/26/17 00:00 09/26/17 07:55 Duoneb 3 Mg/0.5 Mg (3 Ml) Ud INH 3 ml RQ4 COLLEEN Administration Enoxaparin Sodium 40 mg 09/26/17 10:00 09/26/17 09:15 Lovenox SC 40 mg DAILY COLLEEN Administration Dextrose/Sodium Chloride 1,000 mls @ 100 mls/hr 09/26/17 00:30 09/26/17 01:36 Dextrose 5%/0.45% Ns 1000 Ml IV 100 mls/hr .Q10H COLLEEN Administration Dexmedetomidine HCl 200 mcg/ 50 mls @ 6.01 mls/hr 09/26/17 03:59 09/26/17 09: 10 Sodium Chloride IV 0.8 mcg/kg/hr TITR PRN 24.04 mls/hr Restlessness Administration Protocol 0.2 MCG/KG/HR Propofol 1,000 mg in 100 mls @ 18.03 mls/hr 09/26/17 04:05 09/26/17 10:50 Diprivan IV 30 mcg/kg/min .Q5H33M PRN 21.636 mls/hr TITRATE PER MD ORDER Administration Protocol 25 MCG/KG/MIN Azithromycin 500 mg/ Sodium 250 mls @ 166.667 mls/hr 09/26/17 10:00 Chloride IVPB 10/01/17 10:01 DAILY COLLEEN Protocol Ceftriaxone Sodium 1 gm/ 100 mls @ 200 mls/hr 09/26/17 11:30 Sodium Chloride IVPB Q24H COLLEEN Protocol Lorazepam 2 mg 09/26/17 00:53 Ativan IVP Q3 PRN Agitation Methylprednisolone 60 mg 09/26/17 06:00 09/26/17 05:57 Solu-Medrol IVP 60 mg Q6 COLLEEN Administration Montelukast Sodium 10 mg 09/26/17 22:00 Singulair PO HS COLLEEN Pantoprazole Sodium 40 mg 09/26/17 10:00 09/26/17 09:15 Protonix Inj IVP 40 mg DAILY COLLEEN Administration Potassium Phos/Sodium Phos 1 pkt 09/26/17 10:00 Neutra-Phos PO 09/26/17 14:01 Q4H COLLEEN - Patient Studies Lab Studies: Lab Studies 09/26/17 09/26/17 09/26/17 Range/Units 06:14 06:13 05:27 WBC 14.2 H (4.8-10.8) K/uL RBC 4.85 (4.40-5.90) Mil/uL Hgb 14.7 D (12.0-18.0) g/dL Hct 42.3 (35.0-51.0) % MCV 87.4 (80.0-94.0) fL MCH 30.3 (27.0-31.0) pg MCHC 34.7 (33.0-37.0) g/dL RDW 13.5 (11.5-14.5) % Plt Count 229 (130-400) K/uL MPV 8.2 (7.2-11.7) fL Neut % (Auto) 91.9 H (50.0-75.0) % Lymph % (Auto) 5.8 L (20.0-40.0) % Campbell % (Auto) 2.1 (0.0-10.0) % Eos % (Auto) 0.1 (0.0-4.0) % Baso % (Auto) 0.1 (0.0-2.0) % Neut # (Auto) 13.0 H (1.8-7.0) K/uL Lymph # (Auto) 0.8 L (1.0-4.3) K/uL Campbell # (Auto) 0.3 (0.0-0.8) K/uL Eos # (Auto) 0.0 (0.0-0.7) K/uL Baso # (Auto) 0.0 (0.0-0.2) K/uL Neutrophils % (Manual) 87 H (50-75) % Band Neutrophils % 8 H (0-2) % Lymphocytes % (Manual) 3 L (20-40) % Monocytes % (Manual) 1 (0-10) % Metamyelocytes % 1 H (0-0) % Differential Comment Platelet Estimate Normal (NORMAL) RBC Morphology Normal PT (9.7-12.2) SECONDS INR APTT (21-34) SECONDS Puncture Site Rad pCO2 32 L (35-45) mm/Hg pO2 236 H (80-100) mm/Hg HCO3 21.4 (21-28) mmol/L ABG pH 7.39 (7.35-7.45) ABG Total CO2 20.4 L (22-28) mmol/L ABG O2 Saturation 100.2 H (95-98) % ABG Base Excess -4.5 L (-2.0-3.0) mmol/L ABG Hemoglobin 14.9 (11.7-17.4) g/dL ABG Carboxyhemoglobin 1.5 (0.5-1.5) % POC ABG HHb (Measured) -0.2 L (0.0-5.0) % ABG Methemoglobin 1.3 (0.0-3.0) % Darin Test Pos ABG Potassium (3.6-5.2) mmol/L A-a O2 Difference 9.0 mm/Hg Respiratory Index 0 Hgb O2 Saturation 97.3 (95.0-98.0) % Glucose (75-110) mg/dl Lactate (0.7-2.1) mmol/L Vent Mode Prvc Mechanical Rate 22 FiO2 40.0 % Tidal Volume 600 PEEP 5 Crit Value Called To Crit Value Called By Crit Value Read Back Blood Gas Notified Time Sodium 143 (132-148) mmol/L Potassium 4.1 (3.6-5.2) mmol/L Chloride 107 (98-107) mmol/L Carbon Dioxide 19 L (22-30) mmol/L Anion Gap 22 H (10-20) BUN 17 (9-20) mg/dL Creatinine 1.8 H (0.8-1.5) mg/dL Est GFR ( Amer) 54 Est GFR (Non-Af Amer) 45 Random Glucose 183 H (75-110) mg/dL Calcium 8.6 (8.6-10.4) mg/dl Phosphorus 1.8 L (2.5-4.5) mg/dL Magnesium 3.0 H (1.6-2.3) mg/dL Total Bilirubin 0.5 (0.2-1.3) mg/dL AST 55 (17-59) U/L ALT 58 (21-72) U/L Alkaline Phosphatase 63 (38-126) U/L Troponin I (0.00-0.120) ng/mL Total Protein 7.2 (6.3-8.3) g/dL Albumin 4.0 (3.5-5.0) g/dL Globulin 3.2 (2.2-3.9) gm/dL Albumin/Globulin Ratio 1.2 (1.0-2.1) Arterial Blood Potassium (3.6-5.2) mmol/L Urine Color (YELLOW) Urine Clarity (Clear) Urine pH (5.0-8.0) Ur Specific [place] (1.003-1.030) Urine Protein (NEGATIVE) mg/dL Urine Glucose (UA) (Normal) mg/dL Urine Ketones (NEGATIVE) mg/dL Urine Blood (NEGATIVE) Urine Nitrate (NEGATIVE) Urine Bilirubin (NEGATIVE) Urine Urobilinogen (0.2-1.0) mg/dL Ur Leukocyte Esterase (Negative) Steven/uL Urine WBC (Auto) (0-5) /hpf Urine RBC (Auto) (0-3) /hpf Ur Squamous Epith Cells (0-5) /hpf Urine Opiates Screen (NEGATIVE) Urine Methadone Screen (NEGATIVE) Ur Barbiturates Screen (NEGATIVE) Ur Phencyclidine Scrn (NEGATIVE) Ur Amphetamines Screen (NEGATIVE) U Benzodiazepines Scrn (NEGATIVE) U Oth Cocaine Metabols (NEGATIVE) U Cannabinoids Screen (NEGATIVE) 09/25/17 09/25/17 09/25/17 Range/Units 23:57 23:57 23:33 WBC (4.8-10.8) K/uL RBC (4.40-5.90) Mil/uL Hgb (12.0-18.0) g/dL Hct (35.0-51.0) % MCV (80.0-94.0) fL MCH (27.0-31.0) pg MCHC (33.0-37.0) g/dL RDW (11.5-14.5) % Plt Count (130-400) K/uL MPV (7.2-11.7) fL Neut % (Auto) (50.0-75.0) % Lymph % (Auto) (20.0-40.0) % Campbell % (Auto) (0.0-10.0) % Eos % (Auto) (0.0-4.0) % Baso % (Auto) (0.0-2.0) % Neut # (Auto) (1.8-7.0) K/uL Lymph # (Auto) (1.0-4.3) K/uL Campbell # (Auto) (0.0-0.8) K/uL Eos # (Auto) (0.0-0.7) K/uL Baso # (Auto) (0.0-0.2) K/uL Neutrophils % (Manual) (50-75) % Band Neutrophils % (0-2) % Lymphocytes % (Manual) (20-40) % Monocytes % (Manual) (0-10) % Metamyelocytes % (0-0) % Differential Comment Platelet Estimate (NORMAL) RBC Morphology PT (9.7-12.2) SECONDS INR APTT (21-34) SECONDS Puncture Site R rad pCO2 82 H* (35-45) mm/Hg pO2 281 H (80-100) mm/Hg HCO3 17.2 L (21-28) mmol/L ABG pH 7.04 L* (7.35-7.45) ABG Total CO2 24.7 (22-28) mmol/L ABG O2 Saturation 101.0 H (95-98) % ABG Base Excess -10.0 L (-2.0-3.0) mmol/L ABG Hemoglobin (11.7-17.4) g/dL ABG Carboxyhemoglobin (0.5-1.5) % POC ABG HHb (Measured) (0.0-5.0) % ABG Methemoglobin (0.0-3.0) % Darin Test Pos ABG Potassium 4.0 (3.6-5.2) mmol/L A-a O2 Difference 44.0 mm/Hg Respiratory Index 0.2 Hgb O2 Saturation (95.0-98.0) % Glucose 255 H (75-110) mg/dl Lactate 3.4 H (0.7-2.1) mmol/L Vent Mode Prvc Mechanical Rate 18 FiO2 60.0 % Tidal Volume 550 PEEP 5 Crit Value Called To Dr lutz Crit Value Called By Jordyn petty rt Crit Value Read Back Y Blood Gas Notified Time 15 Sodium 138.0 (132-148) mmol/L Potassium (3.6-5.2) mmol/L Chloride 105.0 (98-107) mmol/L Carbon Dioxide (22-30) mmol/L Anion Gap (10-20) BUN (9-20) mg/dL Creatinine (0.8-1.5) mg/dL Est GFR ( Amer) Est GFR (Non-Af Amer) Random Glucose (75-110) mg/dL Calcium (8.6-10.4) mg/dl Phosphorus (2.5-4.5) mg/dL Magnesium (1.6-2.3) mg/dL Total Bilirubin (0.2-1.3) mg/dL AST (17-59) U/L ALT (21-72) U/L Alkaline Phosphatase (38-126) U/L Troponin I (0.00-0.120) ng/mL Total Protein (6.3-8.3) g/dL Albumin (3.5-5.0) g/dL Globulin (2.2-3.9) gm/dL Albumin/Globulin Ratio (1.0-2.1) Arterial Blood Potassium 4.0 (3.6-5.2) mmol/L Urine Color Yellow (YELLOW) Urine Clarity Hazy (Clear) Urine pH 6.0 (5.0-8.0) Ur Specific [place] 1.010 (1.003-1.030) Urine Protein 3+ H (NEGATIVE) mg/dL Urine Glucose (UA) 2+ H (Normal) mg/dL Urine Ketones Negative (NEGATIVE) mg/dL Urine Blood Negative (NEGATIVE) Urine Nitrate Negative (NEGATIVE) Urine Bilirubin Negative (NEGATIVE) Urine Urobilinogen Normal (0.2-1.0) mg/dL Ur Leukocyte Esterase Neg (Negative) Steven/uL Urine WBC (Auto) 1 (0-5) /hpf Urine RBC (Auto) 1 (0-3) /hpf Ur Squamous Epith Cells < 1 (0-5) /hpf Urine Opiates Screen Negative (NEGATIVE) Urine Methadone Screen Negative (NEGATIVE) Ur Barbiturates Screen Negative (NEGATIVE) Ur Phencyclidine Scrn Negative (NEGATIVE) Ur Amphetamines Screen Negative (NEGATIVE) U Benzodiazepines Scrn Negative (NEGATIVE) U Oth Cocaine Metabols Negative (NEGATIVE) U Cannabinoids Screen Positive H (NEGATIVE) 09/25/17 09/25/17 09/25/17 Range/Units 22:35 22:35 22:35 WBC 18.1 H D (4.8-10.8) K/uL RBC 5.58 (4.40-5.90) Mil/uL Hgb 16.8 (12.0-18.0) g/dL Hct 49.1 (35.0-51.0) % MCV 88.0 (80.0-94.0) fL MCH 30.1 (27.0-31.0) pg MCHC 34.2 (33.0-37.0) g/dL RDW 14.0 (11.5-14.5) % Plt Count 226 (130-400) K/uL MPV 8.7 (7.2-11.7) fL Neut % (Auto) 36.1 L (50.0-75.0) % Lymph % (Auto) 43.3 H (20.0-40.0) % Campbell % (Auto) 10.9 H (0.0-10.0) % Eos % (Auto) 8.4 H (0.0-4.0) % Baso % (Auto) 1.3 (0.0-2.0) % Neut # (Auto) 6.5 (1.8-7.0) K/uL Lymph # (Auto) 7.9 H (1.0-4.3) K/uL Campbell # (Auto) 2.0 H (0.0-0.8) K/uL Eos # (Auto) 1.5 H (0.0-0.7) K/uL Baso # (Auto) 0.2 (0.0-0.2) K/uL Neutrophils % (Manual) (50-75) % Band Neutrophils % (0-2) % Lymphocytes % (Manual) (20-40) % Monocytes % (Manual) (0-10) % Metamyelocytes % (0-0) % Differential Comment Platelet Estimate (NORMAL) RBC Morphology PT 11.4 (9.7-12.2) SECONDS INR 1.0 APTT 42 H (21-34) SECONDS Puncture Site pCO2 (35-45) mm/Hg pO2 (80-100) mm/Hg HCO3 (21-28) mmol/L ABG pH (7.35-7.45) ABG Total CO2 (22-28) mmol/L ABG O2 Saturation (95-98) % ABG Base Excess (-2.0-3.0) mmol/L ABG Hemoglobin (11.7-17.4) g/dL ABG Carboxyhemoglobin (0.5-1.5) % POC ABG HHb (Measured) (0.0-5.0) % ABG Methemoglobin (0.0-3.0) % Darin Test ABG Potassium (3.6-5.2) mmol/L A-a O2 Difference mm/Hg Respiratory Index Hgb O2 Saturation (95.0-98.0) % Glucose (75-110) mg/dl Lactate (0.7-2.1) mmol/L Vent Mode Mechanical Rate FiO2 % Tidal Volume PEEP Crit Value Called To Crit Value Called By Crit Value Read Back Blood Gas Notified Time Sodium 145 (132-148) mmol/L Potassium 5.3 H (3.6-5.2) mmol/L Chloride 108 H (98-107) mmol/L Carbon Dioxide 21 L (22-30) mmol/L Anion Gap 21 H (10-20) BUN 13 (9-20) mg/dL Creatinine 1.3 (0.8-1.5) mg/dL Est GFR ( Amer) > 60 Est GFR (Non-Af Amer) > 60 Random Glucose 110 (75-110) mg/dL Calcium 9.6 (8.6-10.4) mg/dl Phosphorus (2.5-4.5) mg/dL Magnesium (1.6-2.3) mg/dL Total Bilirubin 1.3 (0.2-1.3) mg/dL AST 62 H (17-59) U/L ALT 50 (21-72) U/L Alkaline Phosphatase 66 (38-126) U/L Troponin I < 0.0120 (0.00-0.120) ng/mL Total Protein 9.1 H (6.3-8.3) g/dL Albumin 4.8 (3.5-5.0) g/dL Globulin 4.3 H (2.2-3.9) gm/dL Albumin/Globulin Ratio 1.1 (1.0-2.1) Arterial Blood Potassium (3.6-5.2) mmol/L Urine Color (YELLOW) Urine Clarity (Clear) Urine pH (5.0-8.0) Ur Specific [place] (1.003-1.030) Urine Protein (NEGATIVE) mg/dL Urine Glucose (UA) (Normal) mg/dL Urine Ketones (NEGATIVE) mg/dL Urine Blood (NEGATIVE) Urine Nitrate (NEGATIVE) Urine Bilirubin (NEGATIVE) Urine Urobilinogen (0.2-1.0) mg/dL Ur Leukocyte Esterase (Negative) Steven/uL Urine WBC (Auto) (0-5) /hpf Urine RBC (Auto) (0-3) /hpf Ur Squamous Epith Cells (0-5) /hpf Urine Opiates Screen (NEGATIVE) Urine Methadone Screen (NEGATIVE) Ur Barbiturates Screen (NEGATIVE) Ur Phencyclidine Scrn (NEGATIVE) Ur Amphetamines Screen (NEGATIVE) U Benzodiazepines Scrn (NEGATIVE) U Oth Cocaine Metabols (NEGATIVE) U Cannabinoids Screen (NEGATIVE) Laboratory Results - last 24 hr 09/25/17 09/25/17 09/25/17 22:35 22:35 22:35 WBC 18.1 H D RBC 5.58 Hgb 16.8 Hct 49.1 MCV 88.0 MCH 30.1 MCHC 34.2 RDW 14.0 Plt Count 226 MPV 8.7 Neut % (Auto) 36.1 L Lymph % (Auto) 43.3 H Campbell % (Auto) 10.9 H Eos % (Auto) 8.4 H Baso % (Auto) 1.3 Neut # (Auto) 6.5 Lymph # (Auto) 7.9 H Campbell # (Auto) 2.0 H Eos # (Auto) 1.5 H Baso # (Auto) 0.2 Neutrophils % (Manual) Band Neutrophils % Lymphocytes % (Manual) Monocytes % (Manual) Metamyelocytes % Differential Comment Platelet Estimate RBC Morphology PT 11.4 INR 1.0 APTT 42 H Puncture Site pCO2 pO2 HCO3 ABG pH ABG Total CO2 ABG O2 Saturation ABG Base Excess ABG Hemoglobin ABG Carboxyhemoglobin POC ABG HHb (Measured) ABG Methemoglobin Darin Test ABG Potassium A-a O2 Difference Respiratory Index Hgb O2 Saturation Glucose Lactate Vent Mode Mechanical Rate FiO2 Tidal Volume PEEP Crit Value Called To Crit Value Called By Crit Value Read Back Blood Gas Notified Time Sodium 145 Potassium 5.3 H Chloride 108 H Carbon Dioxide 21 L Anion Gap 21 H BUN 13 Creatinine 1.3 Est GFR ( Amer) > 60 Est GFR (Non-Af Amer) > 60 Random Glucose 110 Calcium 9.6 Phosphorus Magnesium Total Bilirubin 1.3 AST 62 H ALT 50 Alkaline Phosphatase 66 Troponin I < 0.0120 Total Protein 9.1 H Albumin 4.8 Globulin 4.3 H Albumin/Globulin Ratio 1.1 Arterial Blood Potassium Urine Color Urine Clarity Urine pH Ur Specific [place] Urine Protein Urine Glucose (UA) Urine Ketones Urine Blood Urine Nitrate Urine Bilirubin Urine Urobilinogen Ur Leukocyte Esterase Urine WBC (Auto) Urine RBC (Auto) Ur Squamous Epith Cells Urine Opiates Screen Urine Methadone Screen Ur Barbiturates Screen Ur Phencyclidine Scrn Ur Amphetamines Screen U Benzodiazepines Scrn U Oth Cocaine Metabols U Cannabinoids Screen 09/25/17 09/25/17 09/25/17 23:33 23:57 23:57 WBC RBC Hgb Hct MCV MCH MCHC RDW Plt Count MPV Neut % (Auto) Lymph % (Auto) [place] % (Auto) Eos % (Auto) Baso % (Auto) Neut # (Auto) Lymph # (Auto) Campbell # (Auto) Eos # (Auto) Baso # (Auto) Neutrophils % (Manual) Band Neutrophils % Lymphocytes % (Manual) Monocytes % (Manual) Metamyelocytes % Differential Comment Platelet Estimate RBC Morphology PT INR APTT Puncture Site R rad pCO2 82 H* pO2 281 H HCO3 17.2 L ABG pH 7.04 L* ABG Total CO2 24.7 ABG O2 Saturation 101.0 H ABG Base Excess -10.0 L ABG Hemoglobin ABG Carboxyhemoglobin POC ABG HHb (Measured) ABG Methemoglobin Darin Test Pos ABG Potassium 4.0 A-a O2 Difference 44.0 Respiratory Index 0.2 Hgb O2 Saturation Glucose 255 H Lactate 3.4 H Vent Mode Prvc Mechanical Rate 18 FiO2 60.0 Tidal Volume 550 PEEP 5 Crit Value Called To Dr lutz Crit Value Called By Jordyn petty rt Crit Value Read Back Y Blood Gas Notified Time 15 Sodium 138.0 Potassium Chloride 105.0 Carbon Dioxide Anion Gap BUN Creatinine Est GFR ( Amer) Est GFR (Non-Af Amer) Random Glucose Calcium Phosphorus Magnesium Total Bilirubin AST ALT Alkaline Phosphatase Troponin I Total Protein Albumin Globulin Albumin/Globulin Ratio Arterial Blood Potassium 4.0 Urine Color Yellow Urine Clarity Hazy Urine pH 6.0 Ur Specific [place] 1.010 Urine Protein 3+ H Urine Glucose (UA) 2+ H Urine Ketones Negative Urine Blood Negative Urine Nitrate Negative Urine Bilirubin Negative Urine Urobilinogen Normal Ur Leukocyte Esterase Neg Urine WBC (Auto) 1 Urine RBC (Auto) 1 Ur Squamous Epith Cells < 1 Urine Opiates Screen Negative Urine Methadone Screen Negative Ur Barbiturates Screen Negative Ur Phencyclidine Scrn Negative Ur Amphetamines Screen Negative U Benzodiazepines Scrn Negative U Oth Cocaine Metabols Negative U Cannabinoids Screen Positive H 09/26/17 09/26/17 09/26/17 05:27 06:13 06:14 WBC 14.2 H RBC 4.85 Hgb 14.7 D Hct 42.3 MCV 87.4 MCH 30.3 MCHC 34.7 RDW 13.5 Plt Count 229 MPV 8.2 Neut % (Auto) 91.9 H Lymph % (Auto) 5.8 L [place] % (Auto) 2.1 Eos % (Auto) 0.1 Baso % (Auto) 0.1 Neut # (Auto) 13.0 H Lymph # (Auto) 0.8 L [place] # (Auto) 0.3 Eos # (Auto) 0.0 Baso # (Auto) 0.0 Neutrophils % (Manual) 87 H Band Neutrophils % 8 H Lymphocytes % (Manual) 3 L Monocytes % (Manual) 1 Metamyelocytes % 1 H Differential Comment Platelet Estimate Normal RBC Morphology Normal PT INR APTT Puncture Site Rad pCO2 32 L pO2 236 H HCO3 21.4 ABG pH 7.39 ABG Total CO2 20.4 L ABG O2 Saturation 100.2 H ABG Base Excess -4.5 L ABG Hemoglobin 14.9 ABG Carboxyhemoglobin 1.5 POC ABG HHb (Measured) -0.2 L ABG Methemoglobin 1.3 Darin Test Pos ABG Potassium A-a O2 Difference 9.0 Respiratory Index 0 Hgb O2 Saturation 97.3 Glucose Lactate Vent Mode Prvc Mechanical Rate 22 FiO2 40.0 Tidal Volume 600 PEEP 5 Crit Value Called To Crit Value Called By Crit Value Read Back Blood Gas Notified Time Sodium 143 Potassium 4.1 Chloride 107 Carbon Dioxide 19 L Anion Gap 22 H BUN 17 Creatinine 1.8 H Est GFR ( Amer) 54 Est GFR (Non-Af Amer) 45 Random Glucose 183 H Calcium 8.6 Phosphorus 1.8 L Magnesium 3.0 H Total Bilirubin 0.5 AST 55 ALT 58 Alkaline Phosphatase 63 Troponin I Total Protein 7.2 Albumin 4.0 Globulin 3.2 Albumin/Globulin Ratio 1.2 Arterial Blood Potassium Urine Color Urine Clarity Urine pH Ur Specific [place] Urine Protein Urine Glucose (UA) Urine Ketones Urine Blood Urine Nitrate Urine Bilirubin Urine Urobilinogen Ur Leukocyte Esterase Urine WBC (Auto) Urine RBC (Auto) Ur Squamous Epith Cells Urine Opiates Screen Urine Methadone Screen Ur Barbiturates Screen Ur Phencyclidine Scrn Ur Amphetamines Screen U Benzodiazepines Scrn U Oth Cocaine Metabols U Cannabinoids Screen EKG/Cardiology Studies: Cardiology / EKG Studies 09/26/17 00:12 EKG [ELECTROCARDIOGRAM] Stat Comment: Mode Of Transportation: BED Reason For Exam: 09/26/17 00:13 ELECTROCARDIOGRAM Stat Comment: Mode Of Transportation: PORTABLE Reason For Exam: respiratory failure Assessment/Plan - Assessment and Plan (Free Text) Assessment: 31 year old male with PMHx of GERD, uncontrolled Asthmawith 5-10 ED visits for asthma exacerbation per year documented since 2014, smokes MJ, unsure if he smokes tobacco, no previous history of prior intubations, was admitted for status asthmaticus. Patient was in respiratory distress despite duonebs, steroids, magnesium, and terbutaline. Patient started to become combative, continued in respiratory distress requiring intubation 09/25/17 currently on Precedex and Propofol on PRVC 22/40/600/5. Plan: Neuro: - Intubated and Sedated on Propofol and Precedex - GCS 3T ([id number]) Cardio: A: Hypertension- no prior history - Troponin: negative - Hydralazine 10mg IVP Q6H PRN - + UDS MJ ?? PCP use to due combativeness and agitation - F/U ECHO Pulm: A: Uncontrolled Asthma, Status Asthmaticus - CXR: no infiltrate or effusion noted, gaseous distention in stomach - Will replete K, phos, mag appropriately Management: - D5 1/2 NS @100cc/hr, Duonebs Q4H, Solumedrol 60mg IVP Q6H, Singulair 10mg QHS - Azithromycin and Rocephin started 09/26/17 GI: - CXR: no infiltrate or effusion noted, however lots of air in the stomach - NGT in place - Will continue to monitor : - Dillard in place to monitor output Endo: A: Hyperglycemia - 2/2 to IV steroids Renal: A: BRIAN - Initially 1.3 --> 1.8 - Will continue with IVF ID: - Afebrile, leukocytosis, hypertensive, left shift with bandemia, lactate level 3.4, pending repeat lactate - CXR: no infiltrate or effusion noted, however lots of air in the stomach - Azithromycin and Rocephin started 09/26/17 - F/U UA, UC, BC, repeat Lactate, Procal Prophylaxis - Protonix - Lovenox, SCDs - Lines: peripheral DW Fernanda Vora DO, PGY-1 <Cristiano,Addy S - Last Filed: 09/26/17 18:10> CCU Objective - Vital Signs / Intake & Output Vital Signs (Last 4 hours): Vital Signs Pulse Resp BP Pulse Ox 09/26/17 14:26 97 H 24 160/87 H 100 Intake and Output (Last 8hrs): Intake & Output 09/26/17 09/26/17 09/26/17 06:59 14:59 22:59 Intake Total 891.8 651.4 Output Total 625 150 Balance 266.8 501.4 Weight 265 lb Intake: IV 100 359.8 Intake, IV Amount 791.8 291.6 Left Distal Port Forearm 132.6 48.2 Left Forearm 159.2 43.4 Left Wrist 500 200 Output: Urine 625 150 Urethral (Dillard) 625 150 Stool 0 Other: Voiding Method Indwelling Catheter # Bowel Movements 0 0 - Medications Active Medications: Active Medications Generic Name Dose Route Start Last Admin Trade Name Freq PRN Reason Stop Dose Admin Albuterol/Ipratropium 3 ml 09/26/17 00:00 09/26/17 11:52 Duoneb 3 Mg/0.5 Mg (3 Ml) Ud INH 3 ml RQ4 COLLEEN Administration Hydralazine HCl 10 mg 09/26/17 11:47 09/26/17 12:18 Apresoline IVP 10 mg Q6H PRN Administration Systolic Blood Pressure Dextrose/Sodium Chloride 1,000 mls @ 100 mls/hr 09/26/17 00:30 09/26/17 11:45 Dextrose 5%/0.45% Ns 1000 Ml IV 100 mls/hr .Q10H COLLEEN Administration Dexmedetomidine HCl 200 mcg/ 50 mls @ 6.01 mls/hr 09/26/17 03:59 09/26/17 11: 40 Sodium Chloride IV 0.6 mcg/kg/hr TITR PRN 18.03 mls/hr Restlessness Administration Protocol 0.2 MCG/KG/HR Propofol 1,000 mg in 100 mls @ 18.03 mls/hr 09/26/17 04:05 09/26/17 14:20 Diprivan IV 15 mcg/kg/min .Q5H33M PRN 10.818 mls/hr TITRATE PER MD ORDER Titration Protocol 25 MCG/KG/MIN Azithromycin 500 mg/ Sodium 250 mls @ 166.667 mls/hr 09/26/17 10:00 06/06/18 11:00 Chloride IVPB 10/01/17 10:01 166.667 mls/hr DAILY COLLEEN Administration Protocol Ceftriaxone Sodium 1 gm/ 100 mls @ 200 mls/hr 09/26/17 11:30 09/26/17 12:16 Sodium Chloride IVPB 200 mls/hr Q24H COLLEEN Administration Protocol Lorazepam 2 mg 09/26/17 00:53 Ativan IVP Q3 PRN Agitation Methylprednisolone 60 mg 09/26/17 06:00 09/26/17 17:36 Solu-Medrol IVP 60 mg Q6 COLLEEN Administration Montelukast Sodium 10 mg 09/26/17 22:00 Singulair PO HS COLLEEN Pantoprazole Sodium 40 mg 09/26/17 10:00 09/26/17 09:15 Protonix Inj IVP 40 mg DAILY COLLEEN Administration - Patient Studies Lab Studies: Lab Studies 09/26/17 09/26/17 09/26/17 Range/Units 13:09 10:46 10:24 WBC (4.8-10.8) K/uL RBC (4.40-5.90) Mil/uL Hgb (12.0-18.0) g/dL Hct (35.0-51.0) % MCV (80.0-94.0) fL MCH (27.0-31.0) pg MCHC (33.0-37.0) g/dL RDW (11.5-14.5) % Plt Count (130-400) K/uL MPV (7.2-11.7) fL Neut % (Auto) (50.0-75.0) % Lymph % (Auto) (20.0-40.0) % [place] % (Auto) (0.0-10.0) % Eos % (Auto) (0.0-4.0) % Baso % (Auto) (0.0-2.0) % Neut # (Auto) (1.8-7.0) K/uL Lymph # (Auto) (1.0-4.3) K/uL [place] # (Auto) (0.0-0.8) K/uL Eos # (Auto) (0.0-0.7) K/uL Baso # (Auto) (0.0-0.2) K/uL Neutrophils % (Manual) (50-75) % Band Neutrophils % (0-2) % Lymphocytes % (Manual) (20-40) % Monocytes % (Manual) (0-10) % Metamyelocytes % (0-0) % Differential Comment Platelet Estimate (NORMAL) RBC Morphology PT (9.7-12.2) SECONDS INR APTT (21-34) SECONDS Puncture Site pCO2 (35-45) mm/Hg pO2 (80-100) mm/Hg HCO3 (21-28) mmol/L ABG pH (7.35-7.45) ABG Total CO2 (22-28) mmol/L ABG O2 Saturation (95-98) % ABG Base Excess (-2.0-3.0) mmol/L ABG Hemoglobin (11.7-17.4) g/dL ABG Carboxyhemoglobin (0.5-1.5) % POC ABG HHb (Measured) (0.0-5.0) % ABG Methemoglobin (0.0-3.0) % Darin Test ABG Potassium (3.6-5.2) mmol/L A-a O2 Difference mm/Hg Respiratory Index Hgb O2 Saturation (95.0-98.0) % Glucose (75-110) mg/dl Lactate (0.7-2.1) mmol/L Vent Mode Mechanical Rate FiO2 % Tidal Volume PEEP Crit Value Called To Crit Value Called By Crit Value Read Back Blood Gas Notified Time Sodium (132-148) mmol/L Potassium (3.6-5.2) mmol/L Chloride (98-107) mmol/L Carbon Dioxide (22-30) mmol/L Anion Gap (10-20) BUN (9-20) mg/dL Creatinine (0.8-1.5) mg/dL Est GFR ( Amer) Est GFR (Non-Af Amer) Random Glucose (75-110) mg/dL Lactic Acid 3.2 H (0.7-2.1) mmol/L Calcium (8.6-10.4) mg/dl Phosphorus (2.5-4.5) mg/dL Magnesium (1.6-2.3) mg/dL Total Bilirubin (0.2-1.3) mg/dL AST (17-59) U/L ALT (21-72) U/L Alkaline Phosphatase (38-126) U/L Troponin I (0.00-0.120) ng/mL Total Protein (6.3-8.3) g/dL Albumin (3.5-5.0) g/dL Globulin (2.2-3.9) gm/dL Albumin/Globulin Ratio (1.0-2.1) Procalcitonin 2.42 H (0.19-0.49) NG/ML Arterial Blood Potassium (3.6-5.2) mmol/L Urine Color Straw (YELLOW) Urine Clarity Hazy (Clear) Urine pH 5.0 (5.0-8.0) Ur Specific [place] 1.003 (1.003-1.030) Urine Protein Negative (NEGATIVE) mg/dL Urine Glucose (UA) Negative (Normal) mg/dL Urine Ketones Negative (NEGATIVE) mg/dL Urine Blood 3+ H (NEGATIVE) Urine Nitrate Negative (NEGATIVE) Urine Bilirubin Negative (NEGATIVE) Urine Urobilinogen Normal (0.2-1.0) mg/dL Ur Leukocyte Esterase Neg (Negative) Steven/uL Urine WBC (Auto) 1 (0-5) /hpf Urine RBC (Auto) 2 (0-3) /hpf Ur Squamous Epith Cells < 1 (0-5) /hpf Uric Acid Crystals Few H (<OCC) /hpf Urine Bacteria Rare (<OCC) Urine Opiates Screen (NEGATIVE) Urine Methadone Screen (NEGATIVE) Ur Barbiturates Screen (NEGATIVE) Ur Phencyclidine Scrn (NEGATIVE) Ur Amphetamines Screen (NEGATIVE) U Benzodiazepines Scrn (NEGATIVE) U Oth Cocaine Metabols (NEGATIVE) U Cannabinoids Screen (NEGATIVE) 09/26/17 09/26/17 09/26/17 Range/Units 06:14 06:13 05:27 WBC 14.2 H (4.8-10.8) K/uL RBC 4.85 (4.40-5.90) Mil/uL Hgb 14.7 D (12.0-18.0) g/dL Hct 42.3 (35.0-51.0) % MCV 87.4 (80.0-94.0) fL MCH 30.3 (27.0-31.0) pg MCHC 34.7 (33.0-37.0) g/dL RDW 13.5 (11.5-14.5) % Plt Count 229 (130-400) K/uL MPV 8.2 (7.2-11.7) fL Neut % (Auto) 91.9 H (50.0-75.0) % Lymph % (Auto) 5.8 L (20.0-40.0) % Campbell % (Auto) 2.1 (0.0-10.0) % Eos % (Auto) 0.1 (0.0-4.0) % Baso % (Auto) 0.1 (0.0-2.0) % Neut # (Auto) 13.0 H (1.8-7.0) K/uL Lymph # (Auto) 0.8 L (1.0-4.3) K/uL [place] # (Auto) 0.3 (0.0-0.8) K/uL Eos # (Auto) 0.0 (0.0-0.7) K/uL Baso # (Auto) 0.0 (0.0-0.2) K/uL Neutrophils % (Manual) 87 H (50-75) % Band Neutrophils % 8 H (0-2) % Lymphocytes % (Manual) 3 L (20-40) % Monocytes % (Manual) 1 (0-10) % Metamyelocytes % 1 H (0-0) % Differential Comment Platelet Estimate Normal (NORMAL) RBC Morphology Normal PT (9.7-12.2) SECONDS INR APTT (21-34) SECONDS Puncture Site Rad pCO2 32 L (35-45) mm/Hg pO2 236 H (80-100) mm/Hg HCO3 21.4 (21-28) mmol/L ABG pH 7.39 (7.35-7.45) ABG Total CO2 20.4 L (22-28) mmol/L ABG O2 Saturation 100.2 H (95-98) % ABG Base Excess -4.5 L (-2.0-3.0) mmol/L ABG Hemoglobin 14.9 (11.7-17.4) g/dL ABG Carboxyhemoglobin 1.5 (0.5-1.5) % POC ABG HHb (Measured) -0.2 L (0.0-5.0) % ABG Methemoglobin 1.3 (0.0-3.0) % Darin Test Pos ABG Potassium (3.6-5.2) mmol/L A-a O2 Difference 9.0 mm/Hg Respiratory Index 0 Hgb O2 Saturation 97.3 (95.0-98.0) % Glucose (75-110) mg/dl Lactate (0.7-2.1) mmol/L Vent Mode Prvc Mechanical Rate 22 FiO2 40.0 % Tidal Volume 600 PEEP 5 Crit Value Called To Crit Value Called By Crit Value Read Back Blood Gas Notified Time Sodium 143 (132-148) mmol/L Potassium 4.1 (3.6-5.2) mmol/L Chloride 107 (98-107) mmol/L Carbon Dioxide 19 L (22-30) mmol/L Anion Gap 22 H (10-20) BUN 17 (9-20) mg/dL Creatinine 1.8 H (0.8-1.5) mg/dL Est GFR ( Amer) 54 Est GFR (Non-Af Amer) 45 Random Glucose 183 H (75-110) mg/dL Lactic Acid (0.7-2.1) mmol/L Calcium 8.6 (8.6-10.4) mg/dl Phosphorus 1.8 L (2.5-4.5) mg/dL Magnesium 3.0 H (1.6-2.3) mg/dL Total Bilirubin 0.5 (0.2-1.3) mg/dL AST 55 (17-59) U/L ALT 58 (21-72) U/L Alkaline Phosphatase 63 (38-126) U/L Troponin I (0.00-0.120) ng/mL Total Protein 7.2 (6.3-8.3) g/dL Albumin 4.0 (3.5-5.0) g/dL Globulin 3.2 (2.2-3.9) gm/dL Albumin/Globulin Ratio 1.2 (1.0-2.1) Procalcitonin (0.19-0.49) NG/ML Arterial Blood Potassium (3.6-5.2) mmol/L Urine Color (YELLOW) Urine Clarity (Clear) Urine pH (5.0-8.0) Ur Specific [place] (1.003-1.030) Urine Protein (NEGATIVE) mg/dL Urine Glucose (UA) (Normal) mg/dL Urine Ketones (NEGATIVE) mg/dL Urine Blood (NEGATIVE) Urine Nitrate (NEGATIVE) Urine Bilirubin (NEGATIVE) Urine Urobilinogen (0.2-1.0) mg/dL Ur Leukocyte Esterase (Negative) Steven/uL Urine WBC (Auto) (0-5) /hpf Urine RBC (Auto) (0-3) /hpf Ur Squamous Epith Cells (0-5) /hpf Uric Acid Crystals (<OCC) /hpf Urine Bacteria (<OCC) Urine Opiates Screen (NEGATIVE) Urine Methadone Screen (NEGATIVE) Ur Barbiturates Screen (NEGATIVE) Ur Phencyclidine Scrn (NEGATIVE) Ur Amphetamines Screen (NEGATIVE) U Benzodiazepines Scrn (NEGATIVE) U Oth Cocaine Metabols (NEGATIVE) U Cannabinoids Screen (NEGATIVE) 09/25/17 09/25/17 09/25/17 Range/Units 23:57 23:57 23:33 WBC (4.8-10.8) K/uL RBC (4.40-5.90) Mil/uL Hgb (12.0-18.0) g/dL Hct (35.0-51.0) % MCV (80.0-94.0) fL MCH (27.0-31.0) pg MCHC (33.0-37.0) g/dL RDW (11.5-14.5) % Plt Count (130-400) K/uL MPV (7.2-11.7) fL Neut % (Auto) (50.0-75.0) % Lymph % (Auto) (20.0-40.0) % Campbell % (Auto) (0.0-10.0) % Eos % (Auto) (0.0-4.0) % Baso % (Auto) (0.0-2.0) % Neut # (Auto) (1.8-7.0) K/uL Lymph # (Auto) (1.0-4.3) K/uL [place] # (Auto) (0.0-0.8) K/uL Eos # (Auto) (0.0-0.7) K/uL Baso # (Auto) (0.0-0.2) K/uL Neutrophils % (Manual) (50-75) % Band Neutrophils % (0-2) % Lymphocytes % (Manual) (20-40) % Monocytes % (Manual) (0-10) % Metamyelocytes % (0-0) % Differential Comment Platelet Estimate (NORMAL) RBC Morphology PT (9.7-12.2) SECONDS INR APTT (21-34) SECONDS Puncture Site R rad pCO2 82 H* (35-45) mm/Hg pO2 281 H (80-100) mm/Hg HCO3 17.2 L (21-28) mmol/L ABG pH 7.04 L* (7.35-7.45) ABG Total CO2 24.7 (22-28) mmol/L ABG O2 Saturation 101.0 H (95-98) % ABG Base Excess -10.0 L (-2.0-3.0) mmol/L ABG Hemoglobin (11.7-17.4) g/dL ABG Carboxyhemoglobin (0.5-1.5) % POC ABG HHb (Measured) (0.0-5.0) % ABG Methemoglobin (0.0-3.0) % Darin Test Pos ABG Potassium 4.0 (3.6-5.2) mmol/L A-a O2 Difference 44.0 mm/Hg Respiratory Index 0.2 Hgb O2 Saturation (95.0-98.0) % Glucose 255 H (75-110) mg/dl Lactate 3.4 H (0.7-2.1) mmol/L Vent Mode Prvc Mechanical Rate 18 FiO2 60.0 % Tidal Volume 550 PEEP 5 Crit Value Called To Dr lutz Crit Value Called By Jordyn petty rt Crit Value Read Back Y Blood Gas Notified Time 15 Sodium 138.0 (132-148) mmol/L Potassium (3.6-5.2) mmol/L Chloride 105.0 (98-107) mmol/L Carbon Dioxide (22-30) mmol/L Anion Gap (10-20) BUN (9-20) mg/dL Creatinine (0.8-1.5) mg/dL Est GFR ( Amer) Est GFR (Non-Af Amer) Random Glucose (75-110) mg/dL Lactic Acid (0.7-2.1) mmol/L Calcium (8.6-10.4) mg/dl Phosphorus (2.5-4.5) mg/dL Magnesium (1.6-2.3) mg/dL Total Bilirubin (0.2-1.3) mg/dL AST (17-59) U/L ALT (21-72) U/L Alkaline Phosphatase (38-126) U/L Troponin I (0.00-0.120) ng/mL Total Protein (6.3-8.3) g/dL Albumin (3.5-5.0) g/dL Globulin (2.2-3.9) gm/dL Albumin/Globulin Ratio (1.0-2.1) Procalcitonin (0.19-0.49) NG/ML Arterial Blood Potassium 4.0 (3.6-5.2) mmol/L Urine Color Yellow (YELLOW) Urine Clarity Hazy (Clear) Urine pH 6.0 (5.0-8.0) Ur Specific [place] 1.010 (1.003-1.030) Urine Protein 3+ H (NEGATIVE) mg/dL Urine Glucose (UA) 2+ H (Normal) mg/dL Urine Ketones Negative (NEGATIVE) mg/dL Urine Blood Negative (NEGATIVE) Urine Nitrate Negative (NEGATIVE) Urine Bilirubin Negative (NEGATIVE) Urine Urobilinogen Normal (0.2-1.0) mg/dL Ur Leukocyte Esterase Neg (Negative) Steven/uL Urine WBC (Auto) 1 (0-5) /hpf Urine RBC (Auto) 1 (0-3) /hpf Ur Squamous Epith Cells < 1 (0-5) /hpf Uric Acid Crystals (<OCC) /hpf Urine Bacteria (<OCC) Urine Opiates Screen Negative (NEGATIVE) Urine Methadone Screen Negative (NEGATIVE) Ur Barbiturates Screen Negative (NEGATIVE) Ur Phencyclidine Scrn Negative (NEGATIVE) Ur Amphetamines Screen Negative (NEGATIVE) U Benzodiazepines Scrn Negative (NEGATIVE) U Oth Cocaine Metabols Negative (NEGATIVE) U Cannabinoids Screen Positive H (NEGATIVE) 09/25/17 09/25/17 09/25/17 Range/Units 22:35 22:35 22:35 WBC 18.1 H D (4.8-10.8) K/uL RBC 5.58 (4.40-5.90) Mil/uL Hgb 16.8 (12.0-18.0) g/dL Hct 49.1 (35.0-51.0) % MCV 88.0 (80.0-94.0) fL MCH 30.1 (27.0-31.0) pg MCHC 34.2 (33.0-37.0) g/dL RDW 14.0 (11.5-14.5) % Plt Count 226 (130-400) K/uL MPV 8.7 (7.2-11.7) fL Neut % (Auto) 36.1 L (50.0-75.0) % Lymph % (Auto) 43.3 H (20.0-40.0) % Campbell % (Auto) 10.9 H (0.0-10.0) % Eos % (Auto) 8.4 H (0.0-4.0) % Baso % (Auto) 1.3 (0.0-2.0) % Neut # (Auto) 6.5 (1.8-7.0) K/uL Lymph # (Auto) 7.9 H (1.0-4.3) K/uL [place] # (Auto) 2.0 H (0.0-0.8) K/uL Eos # (Auto) 1.5 H (0.0-0.7) K/uL Baso # (Auto) 0.2 (0.0-0.2) K/uL Neutrophils % (Manual) (50-75) % Band Neutrophils % (0-2) % Lymphocytes % (Manual) (20-40) % Monocytes % (Manual) (0-10) % Metamyelocytes % (0-0) % Differential Comment Platelet Estimate (NORMAL) RBC Morphology PT 11.4 (9.7-12.2) SECONDS INR 1.0 APTT 42 H (21-34) SECONDS Puncture Site pCO2 (35-45) mm/Hg pO2 (80-100) mm/Hg HCO3 (21-28) mmol/L ABG pH (7.35-7.45) ABG Total CO2 (22-28) mmol/L ABG O2 Saturation (95-98) % ABG Base Excess (-2.0-3.0) mmol/L ABG Hemoglobin (11.7-17.4) g/dL ABG Carboxyhemoglobin (0.5-1.5) % POC ABG HHb (Measured) (0.0-5.0) % ABG Methemoglobin (0.0-3.0) % Darin Test ABG Potassium (3.6-5.2) mmol/L A-a O2 Difference mm/Hg Respiratory Index Hgb O2 Saturation (95.0-98.0) % Glucose (75-110) mg/dl Lactate (0.7-2.1) mmol/L Vent Mode Mechanical Rate FiO2 % Tidal Volume PEEP Crit Value Called To Crit Value Called By Crit Value Read Back Blood Gas Notified Time Sodium 145 (132-148) mmol/L Potassium 5.3 H (3.6-5.2) mmol/L Chloride 108 H (98-107) mmol/L Carbon Dioxide 21 L (22-30) mmol/L Anion Gap 21 H (10-20) BUN 13 (9-20) mg/dL Creatinine 1.3 (0.8-1.5) mg/dL Est GFR ( Amer) > 60 Est GFR (Non-Af Amer) > 60 Random Glucose 110 (75-110) mg/dL Lactic Acid (0.7-2.1) mmol/L Calcium 9.6 (8.6-10.4) mg/dl Phosphorus (2.5-4.5) mg/dL Magnesium (1.6-2.3) mg/dL Total Bilirubin 1.3 (0.2-1.3) mg/dL AST 62 H (17-59) U/L ALT 50 (21-72) U/L Alkaline Phosphatase 66 (38-126) U/L Troponin I < 0.0120 (0.00-0.120) ng/mL Total Protein 9.1 H (6.3-8.3) g/dL Albumin 4.8 (3.5-5.0) g/dL Globulin 4.3 H (2.2-3.9) gm/dL Albumin/Globulin Ratio 1.1 (1.0-2.1) Procalcitonin (0.19-0.49) NG/ML Arterial Blood Potassium (3.6-5.2) mmol/L Urine Color (YELLOW) Urine Clarity (Clear) Urine pH (5.0-8.0) Ur Specific [place] (1.003-1.030) Urine Protein (NEGATIVE) mg/dL Urine Glucose (UA) (Normal) mg/dL Urine Ketones (NEGATIVE) mg/dL Urine Blood (NEGATIVE) Urine Nitrate (NEGATIVE) Urine Bilirubin (NEGATIVE) Urine Urobilinogen (0.2-1.0) mg/dL Ur Leukocyte Esterase (Negative) Steven/uL Urine WBC (Auto) (0-5) /hpf Urine RBC (Auto) (0-3) /hpf Ur Squamous Epith Cells (0-5) /hpf Uric Acid Crystals (<OCC) /hpf Urine Bacteria (<OCC) Urine Opiates Screen (NEGATIVE) Urine Methadone Screen (NEGATIVE) Ur Barbiturates Screen (NEGATIVE) Ur Phencyclidine Scrn (NEGATIVE) Ur Amphetamines Screen (NEGATIVE) U Benzodiazepines Scrn (NEGATIVE) U Oth Cocaine Metabols (NEGATIVE) U Cannabinoids Screen (NEGATIVE) Laboratory Results - last 24 hr 09/25/17 09/25/17 09/25/17 22:35 22:35 22:35 WBC 18.1 H D RBC 5.58 Hgb 16.8 Hct 49.1 MCV 88.0 MCH 30.1 MCHC 34.2 RDW 14.0 Plt Count 226 MPV 8.7 Neut % (Auto) 36.1 L Lymph % (Auto) 43.3 H [place] % (Auto) 10.9 H Eos % (Auto) 8.4 H Baso % (Auto) 1.3 Neut # (Auto) 6.5 Lymph # (Auto) 7.9 H [place] # (Auto) 2.0 H Eos # (Auto) 1.5 H Baso # (Auto) 0.2 Neutrophils % (Manual) Band Neutrophils % Lymphocytes % (Manual) Monocytes % (Manual) Metamyelocytes % Differential Comment Platelet Estimate RBC Morphology PT 11.4 INR 1.0 APTT 42 H Puncture Site pCO2 pO2 HCO3 ABG pH ABG Total CO2 ABG O2 Saturation ABG Base Excess ABG Hemoglobin ABG Carboxyhemoglobin POC ABG HHb (Measured) ABG Methemoglobin Darin Test ABG Potassium A-a O2 Difference Respiratory Index Hgb O2 Saturation Glucose Lactate Vent Mode Mechanical Rate FiO2 Tidal Volume PEEP Crit Value Called To Crit Value Called By Crit Value Read Back Blood Gas Notified Time Sodium 145 Potassium 5.3 H Chloride 108 H Carbon Dioxide 21 L Anion Gap 21 H BUN 13 Creatinine 1.3 Est GFR ( Amer) > 60 Est GFR (Non-Af Amer) > 60 Random Glucose 110 Lactic Acid Calcium 9.6 Phosphorus Magnesium Total Bilirubin 1.3 AST 62 H ALT 50 Alkaline Phosphatase 66 Troponin I < 0.0120 Total Protein 9.1 H Albumin 4.8 Globulin 4.3 H Albumin/Globulin Ratio 1.1 Procalcitonin Arterial Blood Potassium Urine Color Urine Clarity Urine pH Ur Specific [place] Urine Protein Urine Glucose (UA) Urine Ketones Urine Blood Urine Nitrate Urine Bilirubin Urine Urobilinogen Ur Leukocyte Esterase Urine WBC (Auto) Urine RBC (Auto) Ur Squamous Epith Cells Uric Acid Crystals Urine Bacteria Urine Opiates Screen Urine Methadone Screen Ur Barbiturates Screen Ur Phencyclidine Scrn Ur Amphetamines Screen U Benzodiazepines Scrn U Oth Cocaine Metabols U Cannabinoids Screen 09/25/17 09/25/17 09/25/17 23:33 23:57 23:57 WBC RBC Hgb Hct MCV MCH MCHC RDW Plt Count MPV Neut % (Auto) Lymph % (Auto) [place] % (Auto) Eos % (Auto) Baso % (Auto) Neut # (Auto) Lymph # (Auto) [place] # (Auto) Eos # (Auto) Baso # (Auto) Neutrophils % (Manual) Band Neutrophils % Lymphocytes % (Manual) Monocytes % (Manual) Metamyelocytes % Differential Comment Platelet Estimate RBC Morphology PT INR APTT Puncture Site R rad pCO2 82 H* pO2 281 H HCO3 17.2 L ABG pH 7.04 L* ABG Total CO2 24.7 ABG O2 Saturation 101.0 H ABG Base Excess -10.0 L ABG Hemoglobin ABG Carboxyhemoglobin POC ABG HHb (Measured) ABG Methemoglobin Darin Test Pos ABG Potassium 4.0 A-a O2 Difference 44.0 Respiratory Index 0.2 Hgb O2 Saturation Glucose 255 H Lactate 3.4 H Vent Mode Prvc Mechanical Rate 18 FiO2 60.0 Tidal Volume 550 PEEP 5 Crit Value Called To Dr lutz Crit Value Called By Jordyn petty rt Crit Value Read Back Y Blood Gas Notified Time 15 Sodium 138.0 Potassium Chloride 105.0 Carbon Dioxide Anion Gap BUN Creatinine Est GFR ( Amer) Est GFR (Non-Af Amer) Random Glucose Lactic Acid Calcium Phosphorus Magnesium Total Bilirubin AST ALT Alkaline Phosphatase Troponin I Total Protein Albumin Globulin Albumin/Globulin Ratio Procalcitonin Arterial Blood Potassium 4.0 Urine Color Yellow Urine Clarity Hazy Urine pH 6.0 Ur Specific [place] 1.010 Urine Protein 3+ H Urine Glucose (UA) 2+ H Urine Ketones Negative Urine Blood Negative Urine Nitrate Negative Urine Bilirubin Negative Urine Urobilinogen Normal Ur Leukocyte Esterase Neg Urine WBC (Auto) 1 Urine RBC (Auto) 1 Ur Squamous Epith Cells < 1 Uric Acid Crystals Urine Bacteria Urine Opiates Screen Negative Urine Methadone Screen Negative Ur Barbiturates Screen Negative Ur Phencyclidine Scrn Negative Ur Amphetamines Screen Negative U Benzodiazepines Scrn Negative U Oth Cocaine Metabols Negative U Cannabinoids Screen Positive H 09/26/17 09/26/17 09/26/17 05:27 06:13 06:14 WBC 14.2 H RBC 4.85 Hgb 14.7 D Hct 42.3 MCV 87.4 MCH 30.3 MCHC 34.7 RDW 13.5 Plt Count 229 MPV 8.2 Neut % (Auto) 91.9 H Lymph % (Auto) 5.8 L [place] % (Auto) 2.1 Eos % (Auto) 0.1 Baso % (Auto) 0.1 Neut # (Auto) 13.0 H Lymph # (Auto) 0.8 L [place] # (Auto) 0.3 Eos # (Auto) 0.0 Baso # (Auto) 0.0 Neutrophils % (Manual) 87 H Band Neutrophils % 8 H Lymphocytes % (Manual) 3 L Monocytes % (Manual) 1 Metamyelocytes % 1 H Differential Comment Platelet Estimate Normal RBC Morphology Normal PT INR APTT Puncture Site Rad pCO2 32 L pO2 236 H HCO3 21.4 ABG pH 7.39 ABG Total CO2 20.4 L ABG O2 Saturation 100.2 H ABG Base Excess -4.5 L ABG Hemoglobin 14.9 ABG Carboxyhemoglobin 1.5 POC ABG HHb (Measured) -0.2 L ABG Methemoglobin 1.3 Darin Test Pos ABG Potassium A-a O2 Difference 9.0 Respiratory Index 0 Hgb O2 Saturation 97.3 Glucose Lactate Vent Mode Prvc Mechanical Rate 22 FiO2 40.0 Tidal Volume 600 PEEP 5 Crit Value Called To Crit Value Called By Crit Value Read Back Blood Gas Notified Time Sodium 143 Potassium 4.1 Chloride 107 Carbon Dioxide 19 L Anion Gap 22 H BUN 17 Creatinine 1.8 H Est GFR ( Amer) 54 Est GFR (Non-Af Amer) 45 Random Glucose 183 H Lactic Acid Calcium 8.6 Phosphorus 1.8 L Magnesium 3.0 H Total Bilirubin 0.5 AST 55 ALT 58 Alkaline Phosphatase 63 Troponin I Total Protein 7.2 Albumin 4.0 Globulin 3.2 Albumin/Globulin Ratio 1.2 Procalcitonin Arterial Blood Potassium Urine Color Urine Clarity Urine pH Ur Specific [place] Urine Protein Urine Glucose (UA) Urine Ketones Urine Blood Urine Nitrate Urine Bilirubin Urine Urobilinogen Ur Leukocyte Esterase Urine WBC (Auto) Urine RBC (Auto) Ur Squamous Epith Cells Uric Acid Crystals Urine Bacteria Urine Opiates Screen Urine Methadone Screen Ur Barbiturates Screen Ur Phencyclidine Scrn Ur Amphetamines Screen U Benzodiazepines Scrn U Oth Cocaine Metabols U Cannabinoids Screen 09/26/17 09/26/17 09/26/17 10:24 10:46 13:09 WBC RBC Hgb Hct MCV MCH MCHC RDW Plt Count MPV Neut % (Auto) Lymph % (Auto) [place] % (Auto) Eos % (Auto) Baso % (Auto) Neut # (Auto) Lymph # (Auto) [place] # (Auto) Eos # (Auto) Baso # (Auto) Neutrophils % (Manual) Band Neutrophils % Lymphocytes % (Manual) Monocytes % (Manual) Metamyelocytes % Differential Comment Platelet Estimate RBC Morphology PT INR APTT Puncture Site pCO2 pO2 HCO3 ABG pH ABG Total CO2 ABG O2 Saturation ABG Base Excess ABG Hemoglobin ABG Carboxyhemoglobin POC ABG HHb (Measured) ABG Methemoglobin Darin Test ABG Potassium A-a O2 Difference Respiratory Index Hgb O2 Saturation Glucose Lactate Vent Mode Mechanical Rate FiO2 Tidal Volume PEEP Crit Value Called To Crit Value Called By Crit Value Read Back Blood Gas Notified Time Sodium Potassium Chloride Carbon Dioxide Anion Gap BUN Creatinine Est GFR ( Amer) Est GFR (Non-Af Amer) Random Glucose Lactic Acid 3.2 H Calcium Phosphorus Magnesium Total Bilirubin AST ALT Alkaline Phosphatase Troponin I Total Protein Albumin Globulin Albumin/Globulin Ratio Procalcitonin 2.42 H Arterial Blood Potassium Urine Color Straw Urine Clarity Hazy Urine pH 5.0 Ur Specific [place] 1.003 Urine Protein Negative Urine Glucose (UA) Negative Urine Ketones Negative Urine Blood 3+ H Urine Nitrate Negative Urine Bilirubin Negative Urine Urobilinogen Normal Ur Leukocyte Esterase Neg Urine WBC (Auto) 1 Urine RBC (Auto) 2 Ur Squamous Epith Cells < 1 Uric Acid Crystals Few H Urine Bacteria Rare Urine Opiates Screen Urine Methadone Screen Ur Barbiturates Screen Ur Phencyclidine Scrn Ur Amphetamines Screen U Benzodiazepines Scrn U Oth Cocaine Metabols U Cannabinoids Screen EKG/Cardiology Studies: Cardiology / EKG Studies 09/26/17 00:12 EKG [ELECTROCARDIOGRAM] Stat Comment: Mode Of Transportation: BED Reason For Exam: cp 09/26/17 00:13 ELECTROCARDIOGRAM Stat Comment: Mode Of Transportation: PORTABLE Reason For Exam: respiratory failure Attending/Attestation - Attestation I have personally seen and examined this patient.: Yes I have fully participated in the care of the patient.: Yes I have reviewed all pertinent clinical information: Yes Notes (Text): 09/26/17 18:08 patient seen and examined Patient was extubated after weaning trial Continue IV steroids Start feeding Continue nebulizer treatment Psych evaluation
[2017-09-26 11:44] LABS: URINE GLUCOSE (UA) NEGATIVE (Normal); URINE URIC ACID CRYSTALS FEW /hpf (<OCC)
--- NOTE | 2017-09-26 13:09 | CP.PCM.PN ---
Subjective - Date & Time of Evaluation Date of Evaluation: 09/26/17 Time of Evaluation: 12:45 - Subjective Subjective: Medical Attending Note patient seen and examined. Patient intubated on admission noting increasing aggression, hypoxia, hypercapniea. Patient has had multiple ER admissions for asthma exacerbation. Unable to ROS secondary to clinical condition. Patient is on sedation since admission. No family at bedside. Objective - Vital Signs/Intake and Output Vital Signs (last 24 hours): Temp Pulse Resp BP Pulse Ox 99 F 79 22 157/88 H 100 09/26/17 04:00 09/26/17 12:26 09/26/17 12:26 09/26/17 12:26 09/26/17 12:26 Intake and Output: 09/26/17 09/26/17 06:59 18:59 Intake Total 891.8 485.4 Output Total 625 75 Balance 266.8 410.4 - Medications Medications: Current Medications Albuterol/Ipratropium (Duoneb 3 Mg/0.5 Mg (3 Ml) Ud) 3 ml INH RQ4 COLLEEN Last Admin: 09/26/17 11:52 Dose: 3 ml Enoxaparin Sodium (Lovenox) 40 mg SC DAILY COLLEEN Last Admin: 09/26/17 09:15 Dose: 40 mg Hydralazine HCl (Apresoline) 10 mg IVP Q6H PRN PRN Reason: Systolic Blood Pressure Last Admin: 09/26/17 12:18 Dose: 10 mg Dextrose/Sodium Chloride (Dextrose 5%/0.45% Ns 1000 Ml) 1,000 mls @ 100 mls/hr IV .Q10H [facility] Last Admin: 09/26/17 11:45 Dose: 100 mls/hr Dexmedetomidine HCl 200 mcg/ (Sodium Chloride) 50 mls @ 6.01 mls/hr IV TITR PRN ; Protocol; 0.2 MCG/KG/HR PRN Reason: Restlessness Last Admin: 09/26/17 11:40 Dose: 0.6 mcg/kg/hr, 18.03 mls/hr Propofol (Diprivan) 1,000 mg in 100 mls @ 18.03 mls/hr IV .Q5H33M PRN; Protocol ; 25 MCG/KG/MIN PRN Reason: TITRATE PER MD ORDER Last Titration: 09/26/17 12:32 Dose: 25 mcg/kg/min, 18.03 mls/hr Azithromycin 500 mg/ Sodium (Chloride) 250 mls @ 166.667 mls/hr IVPB DAILY COLLEEN PRN Reason: Protocol Stop: 10/01/17 10:01 Ceftriaxone Sodium 1 gm/ (Sodium Chloride) 100 mls @ 200 mls/hr IVPB Q24H [facility]LEEN PRN Reason: Protocol Last Admin: 09/26/17 12:16 Dose: 200 mls/hr Lorazepam (Ativan) 2 mg IVP Q3 PRN PRN Reason: Agitation Methylprednisolone (Solu-Medrol) 60 mg IVP Q6 [facility] Last Admin: 09/26/17 12:19 Dose: 60 mg Montelukast Sodium (Singulair) 10 mg PO HS [facility]LEEN Pantoprazole Sodium (Protonix Inj) 40 mg IVP DAILY [facility] Last Admin: 09/26/17 09:15 Dose: 40 mg Potassium Phos/Sodium Phos (Neutra-Phos) 1 pkt PO Q4H [facility] Stop: 09/26/17 14:01 Last Admin: 09/26/17 10:00 Dose: Not Given - Labs Labs: 09/26/17 06:14 09/26/17 06:13 PT 11.4 SECONDS (9.7-12.2) 09/25/17 22:35 INR 1.0 09/25/17 22:35 APTT 42 SECONDS (21-34) H 09/25/17 22:35 - Constitutional Appears: Non-toxic, No Acute Distress - Eye Exam Additional comments: eyes rolled in the head intubated OGT tube - ENT Exam ENT Exam: Mucous Membranes Moist - Respiratory Exam Respiratory Exam: Decreased Breath Sounds. absent: Respiratory Distress, Stridor Additional comments: intubated on vent - Cardiovascular Exam Cardiovascular Exam: REGULAR RHYTHM, +S1, +S2 - GI/Abdominal Exam GI & Abdominal Exam: Distended (mild), Soft, Normal Bowel Sounds. absent: Firm , Guarding, Rigid, Tenderness, Rebound - Extremities Exam Extremities Exam: absent: Pedal Edema, Tenderness Additional comments: prevalon boots b/l - Neurological Exam Neurological Exam: Altered (sedated) - Skin Skin Exam: Intact, Normal Color, Warm Assessment and Plan (1) Respiratory failure Status: Acute (2) Status asthmaticus Status: Acute (3) Asthma Status: Acute (4) GERD (gastroesophageal reflux disease) Status: Acute (5) Prophylactic measure Status: Acute Attending/Attestation - Attestation I have personally seen and examined this patient.: Yes I have fully participated in the care of the patient.: Yes I have reviewed all pertinent clinical information, including history, physical exam and plan: Yes Notes (Text): patient seen, examined, and case discussed with ICU. 1) Acute Respiratory Failure with Hypercapnia Assessment/Plan * Patient intubated 09/25/17 * Multiple ED visits of asthma in the past two years * On sedation Propofol and Precedex since admission 2) SIRS Assessment/Plan * Criteria: elevated white count, hypoxia * Unclear source of infection * Lactate: 3.4; pending repeat lactate * Procalcitonin: 2.42 * Chest xray (09/26/17): Endotracheal tube extending into the mid thoracic trachea , no focal infiltrate or effusion. Heart size within normal limits * Chest xray (09/26/17): lines and tubes in stable position. no focal infiltrate or effusion. heart size within normal limits. gaseous distention of the stomach * Azithromycin 500mg IVPB Daily (active since 09/26/17) * Rocephin 1gm IVPB daily (active since 09/26/17) 3) Asthma, Severe Persistent Status Asthmaticus Assessment/Plan * Patient intubated 09/25/17 * Multiple ED visits of asthma in the past two years * Solumedrol 50mg IVP Q6H * Singulair 10mg PO daily * Duonebs 3ml INH RQ4H 4) Cannabis Assessment/Plan * Unclear what type of weed * positive UDS for weed only * Will check CT head w/o contrast 5) Gerd Assessment/Plan * Protonix 40mg IVP daily 6) Prophylactic measure Assessment/Plan * Protonix 40mg IVP daily * Hold Lovenox until CT head result-->then resume if negative * intubated 09/25/17 * SCDS b/l
--- NOTE | 2017-09-26 13:46 | RAD ---
HISTORY: s/p ogt tube placement COMPARISON: Chest radiograph performed approximately 6 hours prior. FINDINGS: LUNGS: No active pulmonary disease. PLEURA: No significant pleural effusion identified, no pneumothorax apparent. CARDIOVASCULAR: Normal. OSSEOUS STRUCTURES: No significant abnormalities. VISUALIZED UPPER ABDOMEN: Normal. OTHER FINDINGS: New enteric tube with tip in the stomach. Endotracheal tube, unchanged. IMPRESSION: Satisfactory placement of enteric tube. No other significant interval change.
[2017-09-27] MEDS: Albuterol-Ipratrop 3 mg / 0.5 (3 ml) UD INH SCH ×5 (03:01→19:17)
--- NOTE | 2017-09-27 09:38 | CP.PCM.PN ---
Subjective - Date & Time of Evaluation Date of Evaluation: 09/27/17 Time of Evaluation: 09:30 - Subjective Subjective: Medical Attending Note: Patient seen and examined at bedside. Patient denies fever, denies chills, denies chest pain, reports sore throat, denies abdominal pain, denies dysuria, has had a bowel movement. I have had a very detailed discussion with the patient regarding management of his asthma as well as adverse side effects of drug use. Patient is aware he has a chronic medical condition, since the age 4, and that his asthma is poorly controlled. 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 I have instructed him that he is very moni considering his asthma was quite severely that he required intubation, which is the first time for him. He reports he is working but the medications are quite expensive for him, though it sounds he can afford them. I have urged him to make his asthma a priority for him. I have also indicated to him to not use cannabis or any illict drug which can further irritate his lungs in light of poorly controlled asthma. Patient is quite anxious, he reports he is concerned over the medical bill. I have told him he is not at the stage that he is medically stable for discharge today; that he is on IV steroids and IV abx; if he chooses to leave it would be against medical advice. I have indicated this conversation with his nurse, Reji. Objective - Vital Signs/Intake and Output Vital Signs (last 24 hours): Temp Pulse Resp BP Pulse Ox 98.0 F 100 H 18 143/68 100 09/27/17 08:00 09/27/17 08:00 09/27/17 08:00 09/27/17 08:00 09/27/17 08:00 Intake and Output: 09/27/17 09/27/17 06:59 18:59 Intake Total 1480 Output Total 3050 Balance -1570 - Medications Medications: Current Medications Albuterol/Ipratropium (Duoneb 3 Mg/0.5 Mg (3 Ml) Ud) 3 ml INH RQ6 [facility] Diltiazem HCl (Cardizem Cd) 240 mg PO DAILY [facility] Hydralazine HCl (Apresoline) 10 mg IVP Q6H PRN PRN Reason: Systolic Blood Pressure Last Admin: 09/26/17 12:18 Dose: 10 mg Azithromycin 500 mg/ Sodium (Chloride) 250 mls @ 166.667 mls/hr IVPB DAILY [facility] PRN Reason: Protocol Stop: 10/01/17 10:01 Last Admin: 09/26/17 11:00 Dose: 166.667 mls/hr Ceftriaxone Sodium 1 gm/ (Sodium Chloride) 100 mls @ 200 mls/hr IVPB Q24H [facility] PRN Reason: Protocol Last Admin: 09/26/17 12:16 Dose: 200 mls/hr Lorazepam (Ativan) 2 mg IVP Q3 PRN PRN Reason: Agitation Methylprednisolone (Solu-Medrol) 60 mg IVP Q6 [facility] Last Admin: 09/27/17 08:45 Dose: Not Given Montelukast Sodium (Singulair) 10 mg PO HS [facility] Last Admin: 09/26/17 22:25 Dose: 10 mg Pantoprazole Sodium (Protonix Ec Tab) 40 mg PO DAILY [facility] Fluticasone/Salmeterol (Advair Diskus 250/50) 1 puff INH RQ12 [facility] - Labs Labs: 09/26/17 06:14 09/26/17 06:13 PT 11.4 SECONDS (9.7-12.2) 09/25/17 22:35 INR 1.0 09/25/17 22:35 APTT 42 SECONDS (21-34) H 09/25/17 22:35 - Constitutional Appears: Non-toxic, No Acute Distress - Head Exam Head Exam: NORMAL INSPECTION - Eye Exam Eye Exam: EOMI - ENT Exam ENT Exam: Mucous Membranes Moist - Respiratory Exam Respiratory Exam: Clear to Ausculation Bilateral, NORMAL BREATHING PATTERN. absent: Rales, Rhonchi, Wheezes - Cardiovascular Exam Cardiovascular Exam: RRR, +S1, +S2 - GI/Abdominal Exam GI & Abdominal Exam: Soft, Normal Bowel Sounds. absent: Distended, Firm, Guarding, Rigid, Tenderness, Rebound - Neurological Exam Neurological Exam: Alert, Awake, Oriented x3 Neuro motor strength exam: Left Upper Extremity: 5, Right Upper Extremity: 5, Left Lower Extremity: 5, Right Lower Extremity: 5 - Psychiatric Exam Psychiatric exam: Anxious, Normal Mood - Skin Skin Exam: Dry, Intact, Normal Color, Warm Assessment and Plan (1) Respiratory failure Status: Acute (2) Status asthmaticus Status: Acute (3) Asthma Status: Acute (4) GERD (gastroesophageal reflux disease) Status: Acute (5) Prophylactic measure Status: Acute Attending/Attestation - Attestation I have personally seen and examined this patient.: Yes I have fully participated in the care of the patient.: Yes I have reviewed all pertinent clinical information, including history, physical exam and plan: Yes Notes (Text): 1) Acute Respiratory Failure with Hypercapnia Assessment/Plan * Patient intubated 09/25/17; extubated * Multiple ED visits of asthma in the past two years * Off sedation, tolerated trial 09/26/17 * Patient doing well today. * Patient will need his peripheral access reestablished * c/w Solumedrol 60mg IV Q6H * C/w Duonebs inhaled every 6 hours * c/w Singulair 10mg PO qhS 2) SIRS Assessment/Plan * Criteria: elevated white count, hypoxia * Unclear source of infection * Lactate: 3.4; pending repeat lactate * Procalcitonin: 2.42 * Chest xray (09/26/17): Endotracheal tube extending into the mid thoracic trachea , no focal infiltrate or effusion. Heart size within normal limits * Chest xray (09/26/17): lines and tubes in stable position. no focal infiltrate or effusion. heart size within normal limits. gaseous distention of the stomach * Azithromycin 500mg IVPB Daily (active since 09/26/17) * Rocephin 1gm IVPB daily (active since 09/26/17) * pending Blood cultures 3) Asthma, Severe Persistent Status Asthmaticus Assessment/Plan * Patient intubated 09/25/17 * Multiple ED visits of asthma in the past two years * Patient will need his IV peripheral access re-established * Solumedrol 60mg IVP Q6H * Singulair 10mg PO daily * Duonebs 3ml INH RQ4H 4) Cannabis Assessment/Plan * Patient uses natural weed * positive UDS for weed only * Has been counselled extensively today * Cancelled Head CT 5) Gerd Assessment/Plan * Protonix 40mg IVP daily 6) Prophylactic measure Assessment/Plan * Protonix 40mg IVP daily * intubated 09/25/17; extubated 09/27/17 * SCDS b/l * Physical therapy eval I have placed a psych consult given his anxiety and to see patient has capacity to leave against medical advice. I have indicated that his asthma is severely poorly controlled. Patient still requires IV steroids and IV abx. We are awaiting blood cultures and has had elevated procalcition with an unclear source.
[2017-09-27] MEDS: diltiaZEM 240 mg/24 Hours CD Cap PO SCH (09:55)
[2017-09-27] MEDS: Pantoprazole 40 mg EC Tab PO SCH (09:55)
[2017-09-27 09:56] LABS: BASO % 0.2 % (0.0-2.0); HEMOGLOBIN 15.2 g/dL (12.0-18.0); LYMPH % 4.2 % (20.0-40.0); MEAN CORPUSCULAR HEMOGLOBIN 29.4 pg (27.0-31.0); MEAN CORPUSCULAR HGB CONC 33.4 g/dL (33.0-37.0); MEAN PLATELET VOLUME 8.1 fL (7.2-11.7); MONO # 1.1 K/uL (0.0-0.8); MONO % 4.6 % (0.0-10.0); NEUT # 21.2 K/uL (1.8-7.0); NRBC % 0.1 % (0.0-2.0); PLATELET COUNT 240 K/uL (130-400); RBC 5.15 Mil/uL (4.40-5.90)
[2017-09-27 09:59] LABS: WHITE BLOOD COUNT 23.3 K/uL (4.8-10.8)
[2017-09-27] MEDS: Enoxaparin 40 mg Syringe SC SCH (10:00)
[2017-09-27] MEDS: Azithromycin 500 MG in Sodium Chloride 0.9% 250 ML IVPB SCH ×2 (10:00→17:30)
[2017-09-27 10:18] LABS: ALB/GLOB RATIO 1.3 (1.0-2.1); ALBUMIN 4.3 g/dL (3.5-5.0); ALT/SGPT 80 U/L (21-72); AST/SGOT 173 U/L (17-59); BLOOD UREA NITROGEN 22 mg/dL (9-20); CALCIUM 9.4 mg/dl (8.6-10.4); GFR AFRICAN-AMERICAN > 60; GFR NON-AFRICAN AMERICAN 51
[2017-09-27 10:31] LABS: TOTAL CELLS COUNTED 100
[2017-09-27 10:33] LABS: BANDS 9 % (0-2); LYMPHOCYTE 5 % (20-40); MONOCYTE 9 % (0-10); NEUTROPHIL 77 % (50-75); PLATELET ESTIMATE NORMAL (NORMAL)
--- NOTE | 2017-09-27 11:06 | CP.CCUPN ---
<Fernanda Aquino - Last Filed: 09/27/17 11:19> CCU Subjective - Physician Review Subjective (Free Text): Patient seen and examined at bedside. Reports his breathing has improved, denied productive cough, admitted to sore throat. Patient is contemplating signing out AMA. Risks and benefits discussed with patient at length. CCU Objective - Vital Signs / Intake & Output Vital Signs (Last 4 hours): Vital Signs Temp Pulse Resp BP Pulse Ox 09/27/17 08:00 98.0 F 97 H 14 143/68 100 09/27/17 07:34 88 17 143/68 95 Intake and Output (Last 8hrs): Intake & Output 09/26/17 09/27/17 09/27/17 22:59 06:59 14:59 Intake Total 1089.0 840 Output Total 3600 2450 Balance -2511.0 -1610 Weight 263 lb 3.2 oz Intake: IV 35.8 Intake, IV Amount 813.2 400 Left Distal Port Forearm 6 Left Forearm 7.2 Left Wrist 800 400 Oral 240 440 Output: Urine 3600 2450 Urethral (Dillard) 3600 2450 Other: # Bowel Movements 0 - Physical Exam Head: Positive for: Atraumatic Pupils: Positive for: PERRL Extroacular Muscles: Positive for: EOMI Conjunctiva: Positive for: Normal Ears: Positive for: Normal Mouth: Positive for: Dry Neck: Positive for: Normal Range of Motion Respiratory/Chest: Positive for: Wheezes, Decreased Breath Sounds Cardiovascular: Positive for: Tachycardic Abdomen: Positive for: Normal Bowel Sounds. Negative for: Tenderness, Distention Upper Extremity: Positive for: Normal Inspection, Normal ROM, NORMAL PULSES, Capillary Refill < 2s Lower Extremity: Positive for: Normal Inspection, NORMAL PULSES, Neurovascularly Intact. Negative for: CALF TENDERNESS, Swelling, Erythema Skin: Positive for: Warm, Dry, Normal Color - Medications Active Medications: Active Medications Generic Name Dose Route Start Last Admin Trade Name Freq PRN Reason Stop Dose Admin Albuterol/Ipratropium 3 ml 09/27/17 14:00 Duoneb 3 Mg/0.5 Mg (3 Ml) Ud INH RQ6 COLLEEN Diltiazem HCl 240 mg 09/27/17 10:00 Cardizem Cd PO DAILY COLLEEN Enoxaparin Sodium 40 mg 09/27/17 10:00 Lovenox SC DAILY COLLEEN Hydralazine HCl 10 mg 09/26/17 11:47 09/26/17 12:18 Apresoline IVP 10 mg Q6H PRN Administration Systolic Blood Pressure Azithromycin 500 mg/ Sodium 250 mls @ 166.667 mls/hr 09/26/17 10:00 09/26/17 11:00 Chloride IVPB 10/01/17 10:01 166.667 mls/hr DAILY COLLEEN Administration Protocol Ceftriaxone Sodium 1 gm/ 100 mls @ 200 mls/hr 09/26/17 11:30 09/26/17 12:16 Sodium Chloride IVPB 200 mls/hr Q24H COLLEEN Administration Protocol Methylprednisolone 60 mg 09/26/17 06:00 09/27/17 08:45 Solu-Medrol IVP Not Given Q6 COLLEEN Montelukast Sodium 10 mg 09/26/17 22:00 09/26/17 22:25 Singulair PO 10 mg HS COLLEEN Administration Pantoprazole Sodium 40 mg 09/27/17 10:00 Protonix Ec Tab PO DAILY [facility] Fluticasone/Salmeterol 1 puff 09/27/17 10:00 Advair Diskus 250/50 INH RQ12 COLLEEN - Patient Studies Lab Studies: Microbiology Studies 09/26/17 10:46 Blood Culture - Preliminary Blood-Venous NO GROWTH AFTER 24 HOURS 09/26/17 10:46 Blood Culture - Preliminary Blood-Venous NO GROWTH AFTER 24 HOURS 09/26/17 10:46 Urine Culture - Final Urine No Growth (<1,000 CFU/ML) 09/26/17 10:46 Gram Stain - Final Sputum Lab Studies 09/27/17 09/27/17 09/27/17 Range/Units 09:52 09:51 09:51 WBC 23.3 H D (4.8-10.8) K/uL RBC 5.15 (4.40-5.90) Mil/uL Hgb 15.2 (12.0-18.0) g/dL Hct 45.3 (35.0-51.0) % MCV 88.0 (80.0-94.0) fL MCH 29.4 (27.0-31.0) pg MCHC 33.4 (33.0-37.0) g/dL RDW 14.0 (11.5-14.5) % Plt Count 240 (130-400) K/uL MPV 8.1 (7.2-11.7) fL Neut % (Auto) 91.0 H (50.0-75.0) % Lymph % (Auto) 4.2 L (20.0-40.0) % [place] % (Auto) 4.6 (0.0-10.0) % Eos % (Auto) 0.0 (0.0-4.0) % Baso % (Auto) 0.2 (0.0-2.0) % Neut # (Auto) 21.2 H (1.8-7.0) K/uL Lymph # (Auto) 1.0 (1.0-4.3) K/uL [place] # (Auto) 1.1 H (0.0-0.8) K/uL Eos # (Auto) 0.0 (0.0-0.7) K/uL Baso # (Auto) 0.0 (0.0-0.2) K/uL Neutrophils % (Manual) 77 H (50-75) % Band Neutrophils % 9 H (0-2) % Lymphocytes % (Manual) 5 L (20-40) % Monocytes % (Manual) 9 (0-10) % Platelet Estimate Normal (NORMAL) RBC Morphology Normal Sodium 144 (132-148) mmol/L Potassium 4.4 (3.6-5.2) mmol/L Chloride 107 (98-107) mmol/L Carbon Dioxide 22 (22-30) mmol/L Anion Gap 20 (10-20) BUN 22 H (9-20) mg/dL Creatinine 1.6 H (0.8-1.5) mg/dL Est GFR ( Amer) > 60 Est GFR (Non-Af Amer) 51 Random Glucose 166 H (75-110) mg/dL Hemoglobin A1c (4.2-6.5) % Lactic Acid (0.7-2.1) mmol/L Calcium 9.4 (8.6-10.4) mg/dl Phosphorus 5.1 H (2.5-4.5) mg/dL Magnesium 2.4 H (1.6-2.3) mg/dL Total Bilirubin 0.3 (0.2-1.3) mg/dL AST 173 H D (17-59) U/L ALT 80 H D (21-72) U/L Alkaline Phosphatase 58 (38-126) U/L Total Protein 7.5 (6.3-8.3) g/dL Albumin 4.3 (3.5-5.0) g/dL Globulin 3.2 (2.2-3.9) gm/dL Albumin/Globulin Ratio 1.3 (1.0-2.1) Procalcitonin (0.19-0.49) NG/ML Free T4 0.85 (0.78-2.19) ng/dL Urine Color (YELLOW) Urine Clarity (Clear) Urine pH (5.0-8.0) Ur Specific [place] (1.003-1.030) Urine Protein (NEGATIVE) mg/dL Urine Glucose (UA) (Normal) mg/dL Urine Ketones (NEGATIVE) mg/dL Urine Blood (NEGATIVE) Urine Nitrate (NEGATIVE) Urine Bilirubin (NEGATIVE) Urine Urobilinogen (0.2-1.0) mg/dL Ur Leukocyte Esterase (Negative) Steven/uL Urine WBC (Auto) (0-5) /hpf Urine RBC (Auto) (0-3) /hpf Ur Squamous Epith Cells (0-5) /hpf Uric Acid Crystals (<OCC) /hpf Urine Bacteria (<OCC) 09/27/17 09/26/17 09/26/17 Range/Units 06:17 13:09 10:46 WBC (4.8-10.8) K/uL RBC (4.40-5.90) Mil/uL Hgb (12.0-18.0) g/dL Hct (35.0-51.0) % MCV (80.0-94.0) fL MCH (27.0-31.0) pg MCHC (33.0-37.0) g/dL RDW (11.5-14.5) % Plt Count (130-400) K/uL MPV (7.2-11.7) fL Neut % (Auto) (50.0-75.0) % Lymph % (Auto) (20.0-40.0) % [place] % (Auto) (0.0-10.0) % Eos % (Auto) (0.0-4.0) % Baso % (Auto) (0.0-2.0) % Neut # (Auto) (1.8-7.0) K/uL Lymph # (Auto) (1.0-4.3) K/uL [place] # (Auto) (0.0-0.8) K/uL Eos # (Auto) (0.0-0.7) K/uL Baso # (Auto) (0.0-0.2) K/uL Neutrophils % (Manual) (50-75) % Band Neutrophils % (0-2) % Lymphocytes % (Manual) (20-40) % Monocytes % (Manual) (0-10) % Platelet Estimate (NORMAL) RBC Morphology Sodium (132-148) mmol/L Potassium (3.6-5.2) mmol/L Chloride (98-107) mmol/L Carbon Dioxide (22-30) mmol/L Anion Gap (10-20) BUN (9-20) mg/dL Creatinine (0.8-1.5) mg/dL Est GFR ( Amer) Est GFR (Non-Af Amer) Random Glucose (75-110) mg/dL Hemoglobin A1c 5.8 (4.2-6.5) % Lactic Acid 3.2 H (0.7-2.1) mmol/L Calcium (8.6-10.4) mg/dl Phosphorus (2.5-4.5) mg/dL Magnesium (1.6-2.3) mg/dL Total Bilirubin (0.2-1.3) mg/dL AST (17-59) U/L ALT (21-72) U/L Alkaline Phosphatase (38-126) U/L Total Protein (6.3-8.3) g/dL Albumin (3.5-5.0) g/dL Globulin (2.2-3.9) gm/dL Albumin/Globulin Ratio (1.0-2.1) Procalcitonin (0.19-0.49) NG/ML Free T4 (0.78-2.19) ng/dL Urine Color Straw (YELLOW) Urine Clarity Hazy (Clear) Urine pH 5.0 (5.0-8.0) Ur Specific [place] 1.003 (1.003-1.030) Urine Protein Negative (NEGATIVE) mg/dL Urine Glucose (UA) Negative (Normal) mg/dL Urine Ketones Negative (NEGATIVE) mg/dL Urine Blood 3+ H (NEGATIVE) Urine Nitrate Negative (NEGATIVE) Urine Bilirubin Negative (NEGATIVE) Urine Urobilinogen Normal (0.2-1.0) mg/dL Ur Leukocyte Esterase Neg (Negative) Steven/uL Urine WBC (Auto) 1 (0-5) /hpf Urine RBC (Auto) 2 (0-3) /hpf Ur Squamous Epith Cells < 1 (0-5) /hpf Uric Acid Crystals Few H (<OCC) /hpf Urine Bacteria Rare (<OCC) 09/26/17 Range/Units 10:24 WBC (4.8-10.8) K/uL RBC (4.40-5.90) Mil/uL Hgb (12.0-18.0) g/dL Hct (35.0-51.0) % MCV (80.0-94.0) fL MCH (27.0-31.0) pg MCHC (33.0-37.0) g/dL RDW (11.5-14.5) % Plt Count (130-400) K/uL MPV (7.2-11.7) fL Neut % (Auto) (50.0-75.0) % Lymph % (Auto) (20.0-40.0) % [place] % (Auto) (0.0-10.0) % Eos % (Auto) (0.0-4.0) % Baso % (Auto) (0.0-2.0) % Neut # (Auto) (1.8-7.0) K/uL Lymph # (Auto) (1.0-4.3) K/uL [place] # (Auto) (0.0-0.8) K/uL Eos # (Auto) (0.0-0.7) K/uL Baso # (Auto) (0.0-0.2) K/uL Neutrophils % (Manual) (50-75) % Band Neutrophils % (0-2) % Lymphocytes % (Manual) (20-40) % Monocytes % (Manual) (0-10) % Platelet Estimate (NORMAL) RBC Morphology Sodium (132-148) mmol/L Potassium (3.6-5.2) mmol/L Chloride (98-107) mmol/L Carbon Dioxide (22-30) mmol/L Anion Gap (10-20) BUN (9-20) mg/dL Creatinine (0.8-1.5) mg/dL Est GFR ( Amer) Est GFR (Non-Af Amer) Random Glucose (75-110) mg/dL Hemoglobin A1c (4.2-6.5) % Lactic Acid (0.7-2.1) mmol/L Calcium (8.6-10.4) mg/dl Phosphorus (2.5-4.5) mg/dL Magnesium (1.6-2.3) mg/dL Total Bilirubin (0.2-1.3) mg/dL AST (17-59) U/L ALT (21-72) U/L Alkaline Phosphatase (38-126) U/L Total Protein (6.3-8.3) g/dL Albumin (3.5-5.0) g/dL Globulin (2.2-3.9) gm/dL Albumin/Globulin Ratio (1.0-2.1) Procalcitonin 2.42 H (0.19-0.49) NG/ML Free T4 (0.78-2.19) ng/dL Urine Color (YELLOW) Urine Clarity (Clear) Urine pH (5.0-8.0) Ur Specific [place] (1.003-1.030) Urine Protein (NEGATIVE) mg/dL Urine Glucose (UA) (Normal) mg/dL Urine Ketones (NEGATIVE) mg/dL Urine Blood (NEGATIVE) Urine Nitrate (NEGATIVE) Urine Bilirubin (NEGATIVE) Urine Urobilinogen (0.2-1.0) mg/dL Ur Leukocyte Esterase (Negative) Steven/uL Urine WBC (Auto) (0-5) /hpf Urine RBC (Auto) (0-3) /hpf Ur Squamous Epith Cells (0-5) /hpf Uric Acid Crystals (<OCC) /hpf Urine Bacteria (<OCC) Laboratory Results - last 24 hr 09/26/17 09/26/17 09/26/17 10:24 10:46 13:09 WBC RBC Hgb Hct MCV MCH MCHC RDW Plt Count MPV Neut % (Auto) Lymph % (Auto) [place] % (Auto) Eos % (Auto) Baso % (Auto) Neut # (Auto) Lymph # (Auto) [place] # (Auto) Eos # (Auto) Baso # (Auto) Neutrophils % (Manual) Band Neutrophils % Lymphocytes % (Manual) Monocytes % (Manual) Platelet Estimate RBC Morphology Sodium Potassium Chloride Carbon Dioxide Anion Gap BUN Creatinine Est GFR ( Amer) Est GFR (Non-Af Amer) Random Glucose Hemoglobin A1c Lactic Acid 3.2 H Calcium Phosphorus Magnesium Total Bilirubin AST ALT Alkaline Phosphatase Total Protein Albumin Globulin Albumin/Globulin Ratio Procalcitonin 2.42 H Free T4 Urine Color Straw Urine Clarity Hazy Urine pH 5.0 Ur Specific [place] 1.003 Urine Protein Negative Urine Glucose (UA) Negative Urine Ketones Negative Urine Blood 3+ H Urine Nitrate Negative Urine Bilirubin Negative Urine Urobilinogen Normal Ur Leukocyte Esterase Neg Urine WBC (Auto) 1 Urine RBC (Auto) 2 Ur Squamous Epith Cells < 1 Uric Acid Crystals Few H Urine Bacteria Rare 09/27/17 09/27/17 09/27/17 06:17 09:51 09:51 WBC 23.3 H D RBC 5.15 Hgb 15.2 Hct 45.3 MCV 88.0 MCH 29.4 MCHC 33.4 RDW 14.0 Plt Count 240 MPV 8.1 Neut % (Auto) 91.0 H Lymph % (Auto) 4.2 L [place] % (Auto) 4.6 Eos % (Auto) 0.0 Baso % (Auto) 0.2 Neut # (Auto) 21.2 H Lymph # (Auto) 1.0 [place] # (Auto) 1.1 H Eos # (Auto) 0.0 Baso # (Auto) 0.0 Neutrophils % (Manual) 77 H Band Neutrophils % 9 H Lymphocytes % (Manual) 5 L Monocytes % (Manual) 9 Platelet Estimate Normal RBC Morphology Normal Sodium 144 Potassium 4.4 Chloride 107 Carbon Dioxide 22 Anion Gap 20 BUN 22 H Creatinine 1.6 H Est GFR ( Amer) > 60 Est GFR (Non-Af Amer) 51 Random Glucose 166 H Hemoglobin A1c 5.8 Lactic Acid Calcium 9.4 Phosphorus 5.1 H Magnesium 2.4 H Total Bilirubin 0.3 AST 173 H D ALT 80 H D Alkaline Phosphatase 58 Total Protein 7.5 Albumin 4.3 Globulin 3.2 Albumin/Globulin Ratio 1.3 Procalcitonin Free T4 Urine Color Urine Clarity Urine pH Ur Specific [place] Urine Protein Urine Glucose (UA) Urine Ketones Urine Blood Urine Nitrate Urine Bilirubin Urine Urobilinogen Ur Leukocyte Esterase Urine WBC (Auto) Urine RBC (Auto) Ur Squamous Epith Cells Uric Acid Crystals Urine Bacteria 09/27/17 09:52 WBC RBC Hgb Hct MCV MCH MCHC RDW Plt Count MPV Neut % (Auto) Lymph % (Auto) [place] % (Auto) Eos % (Auto) Baso % (Auto) Neut # (Auto) Lymph # (Auto) [place] # (Auto) Eos # (Auto) Baso # (Auto) Neutrophils % (Manual) Band Neutrophils % Lymphocytes % (Manual) Monocytes % (Manual) Platelet Estimate RBC Morphology Sodium Potassium Chloride Carbon Dioxide Anion Gap BUN Creatinine Est GFR ( Amer) Est GFR (Non-Af Amer) Random Glucose Hemoglobin A1c Lactic Acid Calcium Phosphorus Magnesium Total Bilirubin AST ALT Alkaline Phosphatase Total Protein Albumin Globulin Albumin/Globulin Ratio Procalcitonin Free T4 0.85 Urine Color Urine Clarity Urine pH Ur Specific [place] Urine Protein Urine Glucose (UA) Urine Ketones Urine Blood Urine Nitrate Urine Bilirubin Urine Urobilinogen Ur Leukocyte Esterase Urine WBC (Auto) Urine RBC (Auto) Ur Squamous Epith Cells Uric Acid Crystals Urine Bacteria Critical Care Progress Note - Nutrition Nutrition: Nutrition Category Date Time Status Regular Diet [DIET] Diets 09/27/17 Breakfast Active Assessment/Plan - Assessment and Plan (Free Text) Assessment: 31 year old male with PMHx of GERD, uncontrolled Asthmawith 5-10 ED visits for asthma exacerbation per year documented since 2014, smokes MJ, unsure if he smokes tobacco, no previous history of prior intubations, was admitted for status asthmaticus. Patient was in respiratory distress despite duonebs, steroids, magnesium, and terbutaline. Patient started to become combative, continued in respiratory distress requiring intubation 09/25/17 was on Precedex and Propofol on PRVC 22/40/600/5. Patient extubated 09/26/17. Plan: Neuro: - Not on sedation, extubated 09/26/17 - GCS 15 Cardio: A: Hypertension- no prior history - Troponin: negative - Hydralazine 10mg IVP Q6H PRN - + UDS MJ ?? PCP use to due combativeness and agitation - F/U ECHO Pulm: A: Uncontrolled Asthma, Status Asthmaticus - CXR: no infiltrate or effusion noted, gaseous distention in stomach Management: - Duonebs Q6H, Solumedrol 60mg IVP Q6H, Singulair 10mg QHS, Advair 250/50 Q12 - Azithromycin and Rocephin started 09/26/17 GI: A: Gerd - protonix - CXR: no infiltrate or effusion noted, however lots of air in the stomach ---> NGT placed removed when patient was extubated - Will continue to monitor : - Dillard in place to monitor output Endo: A: Hyperglycemia - 2/2 to IV steroids Renal: A: BRIAN - Initially 1.3 --> 1.8 -- > 1.6 - Will replete K, phos, mag appropriately - Will continue with IVF ID: - Afebrile, leukocytosis, hypertensive, left shift with bandemia, lactate level 3.4, repeat lactate 3.2, procal 2.42 - CXR: no infiltrate or effusion noted, however lots of air in the stomach - Azithromycin and Rocephin started 09/26/17 - UA, UC, BC - all negative to date Prophylaxis - Protonix - Lovenox, SCDs - Lines: peripheral Disposition; Patient is transferred to Telemetry Dr. Anthony Rao, Fernanda Aquino DO, PGY-1 <Belinda Rao - Last Filed: 09/28/17 10:17> CCU Objective - Vital Signs / Intake & Output Intake and Output (Last 8hrs): Intake & Output 09/27/17 09/28/17 09/28/17 22:59 06:59 14:59 Intake Total 500 950 Output Total 800 3200 Balance -300 -2250 Intake: Intake, IV Amount 0 Right External Jugular 0 Oral 500 950 Output: Urine 800 3200 Urine, Voided 800 3200 Other: # Voids Urine, Voided 2 - Medications Active Medications: Active Medications Generic Name Dose Route Start Last Admin Trade Name Wilbertq PRN Reason Stop Dose Admin Albuterol/Ipratropium 3 ml 09/28/17 12:00 Duoneb 3 Mg/0.5 Mg (3 Ml) Ud INH RQ4 COLLEEN Diltiazem HCl 240 mg 09/27/17 10:00 09/28/17 09:35 Cardizem Cd PO 240 mg DAILY COLLEEN Administration Enoxaparin Sodium 40 mg 09/27/17 10:00 09/28/17 09:39 Lovenox SC Not Given DAILY COLLEEN Ceftriaxone Sodium 1 gm/ 100 mls @ 200 mls/hr 09/26/17 11:30 09/27/17 16:55 Sodium Chloride IVPB 200 mls/hr Q24H COLLEEN Administration Protocol Methylprednisolone 40 mg 09/28/17 10:00 Solu-Medrol IVP Q8H COLLEEN Montelukast Sodium 10 mg 09/26/17 22:00 09/27/17 21:44 Singulair PO 10 mg HS COLLEEN Administration Fluticasone/Salmeterol 1 puff 09/27/17 10:00 09/28/17 07:17 Advair Diskus 250/50 INH 1 puff RQ12 COLLEEN Administration - Patient Studies Lab Studies: Microbiology Studies 09/26/17 Unknown MRSA Culture (Admit) - Final Nose MRSA NOT DETECTED 09/26/17 10:46 Blood Culture - Preliminary Blood-Venous NO GROWTH AFTER 24 HOURS 09/26/17 10:46 Blood Culture - Preliminary Blood-Venous NO GROWTH AFTER 24 HOURS 09/26/17 10:46 Urine Culture - Final Urine No Growth (<1,000 CFU/ML) 09/26/17 10:46 Gram Stain - Final Sputum Lab Studies 09/28/17 09/28/17 09/27/17 Range/Units 08:49 08:49 09:52 WBC 19.5 H (4.8-10.8) K/uL RBC 5.12 (4.40-5.90) Mil/uL Hgb 15.3 (12.0-18.0) g/dL Hct 45.2 (35.0-51.0) % MCV 88.2 (80.0-94.0) fL MCH 29.8 (27.0-31.0) pg MCHC 33.8 (33.0-37.0) g/dL RDW 13.8 (11.5-14.5) % Plt Count 234 (130-400) K/uL MPV 8.1 (7.2-11.7) fL Neut % (Auto) 91.3 H (50.0-75.0) % Lymph % (Auto) 5.1 L (20.0-40.0) % [place] % (Auto) 3.2 (0.0-10.0) % Eos % (Auto) 0.1 (0.0-4.0) % Baso % (Auto) 0.3 (0.0-2.0) % Neut # (Auto) 17.8 H (1.8-7.0) K/uL Lymph # (Auto) 1.0 (1.0-4.3) K/uL [place] # (Auto) 0.6 (0.0-0.8) K/uL Eos # (Auto) 0.0 (0.0-0.7) K/uL Baso # (Auto) 0.1 (0.0-0.2) K/uL Neutrophils % (Manual) 86 H (50-75) % Band Neutrophils % 6 H (0-2) % Lymphocytes % (Manual) 6 L (20-40) % Monocytes % (Manual) 2 (0-10) % Platelet Estimate Normal (NORMAL) RBC Morphology Normal Sodium 144 (132-148) mmol/L Potassium 4.5 (3.6-5.2) mmol/L Chloride 104 (98-107) mmol/L Carbon Dioxide 25 (22-30) mmol/L Anion Gap 19 (10-20) BUN 20 (9-20) mg/dL Creatinine 1.3 (0.8-1.5) mg/dL Est GFR ( Amer) > 60 Est GFR (Non-Af Amer) > 60 Random Glucose 137 H (75-110) mg/dL Calcium 9.4 (8.6-10.4) mg/dl Phosphorus 5.1 H (2.5-4.5) mg/dL Magnesium 2.3 (1.6-2.3) mg/dL Total Bilirubin 0.5 (0.2-1.3) mg/dL AST 188 H (17-59) U/L ALT 113 H D (21-72) U/L Alkaline Phosphatase 60 (38-126) U/L Total Protein 7.6 (6.3-8.3) g/dL Albumin 4.2 (3.5-5.0) g/dL Globulin 3.3 (2.2-3.9) gm/dL Albumin/Globulin Ratio 1.3 (1.0-2.1) Free T4 0.85 (0.78-2.19) ng/dL 09/27/17 09/27/17 Range/Units 09:51 09:51 WBC (4.8-10.8) K/uL RBC (4.40-5.90) Mil/uL Hgb (12.0-18.0) g/dL Hct (35.0-51.0) % MCV (80.0-94.0) fL MCH (27.0-31.0) pg MCHC (33.0-37.0) g/dL RDW (11.5-14.5) % Plt Count (130-400) K/uL MPV (7.2-11.7) fL Neut % (Auto) (50.0-75.0) % Lymph % (Auto) (20.0-40.0) % [place] % (Auto) (0.0-10.0) % Eos % (Auto) (0.0-4.0) % Baso % (Auto) (0.0-2.0) % Neut # (Auto) (1.8-7.0) K/uL Lymph # (Auto) (1.0-4.3) K/uL [place] # (Auto) (0.0-0.8) K/uL Eos # (Auto) (0.0-0.7) K/uL Baso # (Auto) (0.0-0.2) K/uL Neutrophils % (Manual) 77 H (50-75) % Band Neutrophils % 9 H (0-2) % Lymphocytes % (Manual) 5 L (20-40) % Monocytes % (Manual) 9 (0-10) % Platelet Estimate Normal (NORMAL) RBC Morphology Normal Sodium 144 (132-148) mmol/L Potassium 4.4 (3.6-5.2) mmol/L Chloride 107 (98-107) mmol/L Carbon Dioxide 22 (22-30) mmol/L Anion Gap 20 (10-20) BUN 22 H (9-20) mg/dL Creatinine 1.6 H (0.8-1.5) mg/dL Est GFR ( Amer) > 60 Est GFR (Non-Af Amer) 51 Random Glucose 166 H (75-110) mg/dL Calcium 9.4 (8.6-10.4) mg/dl Phosphorus 5.1 H (2.5-4.5) mg/dL Magnesium 2.4 H (1.6-2.3) mg/dL Total Bilirubin 0.3 (0.2-1.3) mg/dL AST 173 H D (17-59) U/L ALT 80 H D (21-72) U/L Alkaline Phosphatase 58 (38-126) U/L Total Protein 7.5 (6.3-8.3) g/dL Albumin 4.3 (3.5-5.0) g/dL Globulin 3.2 (2.2-3.9) gm/dL Albumin/Globulin Ratio 1.3 (1.0-2.1) Free T4 (0.78-2.19) ng/dL Laboratory Results - last 24 hr 09/27/17 09/27/17 09/27/17 09:51 09:51 09:52 WBC RBC Hgb Hct MCV MCH MCHC RDW Plt Count MPV Neut % (Auto) Lymph % (Auto) [place] % (Auto) Eos % (Auto) Baso % (Auto) Neut # (Auto) Lymph # (Auto) [place] # (Auto) Eos # (Auto) Baso # (Auto) Neutrophils % (Manual) 77 H Band Neutrophils % 9 H Lymphocytes % (Manual) 5 L Monocytes % (Manual) 9 Platelet Estimate Normal RBC Morphology Normal Sodium 144 Potassium 4.4 Chloride 107 Carbon Dioxide 22 Anion Gap 20 BUN 22 H Creatinine 1.6 H Est GFR ( Amer) > 60 Est GFR (Non-Af Amer) 51 Random Glucose 166 H Calcium 9.4 Phosphorus 5.1 H Magnesium 2.4 H Total Bilirubin 0.3 AST 173 H D ALT 80 H D Alkaline Phosphatase 58 Total Protein 7.5 Albumin 4.3 Globulin 3.2 Albumin/Globulin Ratio 1.3 Free T4 0.85 09/28/17 09/28/17 08:49 08:49 WBC 19.5 H RBC 5.12 Hgb 15.3 Hct 45.2 MCV 88.2 MCH 29.8 MCHC 33.8 RDW 13.8 Plt Count 234 MPV 8.1 Neut % (Auto) 91.3 H Lymph % (Auto) 5.1 L [place] % (Auto) 3.2 Eos % (Auto) 0.1 Baso % (Auto) 0.3 Neut # (Auto) 17.8 H Lymph # (Auto) 1.0 [place] # (Auto) 0.6 Eos # (Auto) 0.0 Baso # (Auto) 0.1 Neutrophils % (Manual) 86 H Band Neutrophils % 6 H Lymphocytes % (Manual) 6 L Monocytes % (Manual) 2 Platelet Estimate Normal RBC Morphology Normal Sodium 144 Potassium 4.5 Chloride 104 Carbon Dioxide 25 Anion Gap 19 BUN 20 Creatinine 1.3 Est GFR ( Amer) > 60 Est GFR (Non-Af Amer) > 60 Random Glucose 137 H Calcium 9.4 Phosphorus 5.1 H Magnesium 2.3 Total Bilirubin 0.5 AST 188 H ALT 113 H D Alkaline Phosphatase 60 Total Protein 7.6 Albumin 4.2 Globulin 3.3 Albumin/Globulin Ratio 1.3 Free T4 Critical Care Progress Note - Nutrition Nutrition: Nutrition Category Date Time Status Regular Diet [DIET] Diets 09/27/17 Breakfast Active Assessment/Plan - Assessment and Plan (Free Text) Plan: Patiient seen and examined at bedside. Patient with h/o asthma, smoking recreationally and cigarettes wth asthma -acute asthma exacerbatoin resolved -HTN: controlled -BRIAN: avoid neprhotoxic drugs -patient is hemodynamically stable. - Date & Time Date: 09/27/17 Time: 13:00
[2017-09-27] MEDS: Fluticasone-Salmeterol 250-50mcg Diskus INH SCH ×2 (11:11→19:15)
--- NOTE | 2017-09-27 14:47 | PCM.PSYCH ---
Initial Psychiatric Evaluation - Initial Psychiatric Evaluation Type of Admission: Voluntary Legal Status: Capacity Chief Complaint (in patient's own words): "I feel fine" History of Present Illness and Precipitating Events: Patient is a 31-year-old male who presented with asthma exacerbation that was not relieved with treatment. Patient was intubated for status asthmaticus. Patient has been to the ED multiple times for SOB and asthma exacerbation. Patient is seen today by Psychiatry. As per the girlfriend, who just have a baby 6 months ago, reports he has not been himself. He has less interested in hobbies and a bit more [place]. Patient reports depressed mood, poor sleep and tiredness. He expressed gratitude that he is doing well medically today. Patient does report he has been leaving his apartment a lot less because of no desire to go out. Patient stated he want to sign out AMA because he cannot afford to stay in the hospital without insurance. Patient is a bit stressed at home while living with his girlfriend and 4 children. Patient denies auditory, tactile, visual hallucinations. Patient denies hearing voices. However, he denies any feelings of hopelessness and helplessness. He denies any suicide ideation. Denies prior psychiatric history. Medical Hx HTN, Asthma GERD Surgical Hx Endoscopy (as a child) Medications Albuterol Allergies Pollen, Cats, Dogs Social Hx Drinks alcohol socially; smokes 1 blunt of marijuana once a day; denies illicit drug use. Lives with girlfriend and 4 children (1 from girlfriend ; 3 from girlfriends previously relationship); Unemployed (previously worked at [employer]) Family Hx Unknown Current Medications: Active Medications Generic Name Dose Route Start Last Admin Trade Name Freq PRN Reason Stop Dose Admin Albuterol/Ipratropium 3 ml 09/27/17 14:00 09/27/17 13:46 Duoneb 3 Mg/0.5 Mg (3 Ml) Ud INH 3 ml RQ6 [facility] Administration Diltiazem HCl 240 mg 09/27/17 10:00 09/27/17 09:55 Cardizem Cd PO 240 mg DAILY [facility] Administration Enoxaparin Sodium 40 mg 09/27/17 10:00 09/27/17 10:00 Lovenox SC Not Given DAILY [facility] Hydralazine HCl 10 mg 09/26/17 11:47 09/26/17 12:18 Apresoline IVP 10 mg Q6H PRN Administration Systolic Blood Pressure Azithromycin 500 mg/ Sodium 250 mls @ 166.667 mls/hr 09/26/17 10:00 09/27/17 10:00 Chloride IVPB 10/01/17 10:01 Not Given DAILY [facility] Protocol Ceftriaxone Sodium 1 gm/ 100 mls @ 200 mls/hr 09/26/17 11:30 09/26/17 12:16 Sodium Chloride IVPB 200 mls/hr Q24H [facility] Administration Protocol Methylprednisolone 60 mg 09/26/17 06:00 09/27/17 08:45 Solu-Medrol IVP Not Given Q6 [facility] Montelukast Sodium 10 mg 09/26/17 22:00 09/26/17 22:25 Singulair PO 10 mg HS [facility] Administration Pantoprazole Sodium 40 mg 09/27/17 10:00 09/27/17 09:55 Protonix Ec Tab PO 40 mg DAILY [facility] Administration Fluticasone/Salmeterol 1 puff 09/27/17 10:00 09/27/17 11:11 Advair Diskus 250/50 INH 1 puff RQ12 [facility] Administration Past Psychiatric History - Past Psychiatric History Previous Treatment History: None Pertinent Medical Hx (Current Medical&Sleep Prob, Allergies): Allergies Allergy/AdvReac Type Severity Reaction Status Date / Time pollen extracts Allergy Verified 09/25/17 22:36 cats Allergy Uncoded 09/25/17 22:36 dogs Allergy Uncoded 09/25/17 22:36 Albuterol 0.083% [Albuterol Sulfate 3 Ml] 3 ml IH Q4 #100 [facility] 12/28/16 Albuterol 0.083% [Albuterol Sulfate 3 Ml] 3 ml IH Q4 #30 [facility] 07/18/17 Albuterol/Ipratropium [Duoneb 3 MG/3 Ml-0.5 MG/3 Ml 3 Ml] 1 ea IH QID PRN #50 [facility] 09/01/17 Review of Systems - Review of Systems All systems: reviewed and no additional remarkable complaints except - Neurological Neurological: UNREMARKABLE - Psychiatric Psychiatric: Depression, Irritability. absent: Anhedonia, Auditory Hallucinations, Behavioral Changes, Change in Appetite, Confusion, Difficulty Concentrating, Hallucinations, Homicidal Ideation, Hopelessness, Suicidal Ideation, Visual Hallucinations, Tactile Hallucinations Mental Status Examination - Personal Presentation Personal Presentation: Looks stated age - Affect Affect: Constricted, Depressed - Motor Activity Motor Activity: Calm - Reliability in Providing Information Reliability in Providing Information: Good - Speech Speech: Organized - Mood Mood: Anxious, Neutral - Formal Thought Process Formal Thought Process: No Impairment - Obsessions/Compulsions Obsessions: No Compulsions: No - Cognitive Functions Orientation: Person, Place, Situation, Time Sensorium: Alert Attention/Concentration: Attentive Abstract Thinking: Pinson Estimate of Intelligence: Below average Judgement: Imparied, as evidence by: Lack of insight into illness, Intact, as evidence by: Good judgement Memory: Recent intact, as evidence by: Ability to recall events of the day - Risk Risk: Diminished functioning - Strength & Assets Inventory Strength & Assets Inventory: Family support DSM 5 DX - DSM 5 DSM 5 Diagnosis: Adjustment disorder with depressed mood - Recommended/Plan of Treatment Treatment Recommendations and Plan of Treatment: Adjustment disorder with depressed mood Zoloft 50 mg daily Trazodone 50 mg by mouth daily at bedtime Patient psychiatrically stable and clear for discharge
--- NOTE | 2017-09-27 19:25 | CARD ---
APPROVED REPORT EKG Measurement Heart [id number] <Conclusion> Normal sinus rhythm Normal ECG
--- NOTE | 2017-09-27 19:25 | CARD ---
APPROVED REPORT EKG Measurement Heart [id number] <Conclusion> Sinus tachycardia Otherwise normal ECG
[2017-09-28] MEDS: Albuterol-Ipratrop 3 mg / 0.5 (3 ml) UD INH SCH ×6 (01:28→19:23)
--- NOTE | 2017-09-28 03:58 | CARD ---
APPROVED REPORT EXAM: Two-dimensional and M-mode echocardiogram with Doppler and color Doppler. Other Information Quality : GoodRhythm : INDICATION LV Function:Systolic 2D DIMENSIONS IVSd1.1 (0.7-1.1cm)LVDd4.6 (3.9-5.9cm) PWd1.3 (0.7-1.1cm)LVDs2.9 (2.5-4.0cm) FS (%) 36.7 %LVEF (%)66.6 (>50%) M-Mode DIMENSIONS Left Atrium (MM)3.02 (2.5-4.0cm)Aortic Root3.11 (2.2-3.7cm) Aortic Cusp Exc.2.10 (1.5-2.0cm) Mitral Valve MV E Uqchuetr27.2cm/sMV A Sokzuumj726.4cm/sE/A ratio0.8 TDI E/Lateral E'0.0E/Medial E'0.0 LEFT VENTRICLE The left ventricle is normal size. There is borderline to mild concentric left ventricular hypertrophy. Left ventricle systolic function is normal. The Ejection Fraction is 65-70%. There is normal LV segmental wall motion. Tissue Doppler imaging reveals abnormal left ventricular diastolic dysfunction. RIGHT VENTRICLE The right ventricle is normal size. There is normal right ventricular wall thickness. The right ventricular systolic function is normal. ATRIA The left atrium size is normal. The right atrium size is normal. The interatrial septum is intact with no evidence for an atrial septal defect. AORTIC VALVE The aortic valve is normal in structure. No aortic regurgitation is present. There is no aortic valvular stenosis. There is no aortic valvular vegetation. MITRAL VALVE The mitral valve is normal in structure. There is no evidence of mitral valve prolapse. There is no mitral valve stenosis. There is no mitral valve regurgitation noted. TRICUSPID VALVE The tricuspid valve is normal in structure. There is trace to mild tricuspid regurgitation. PULMONIC VALVE The pulmonic valve is not well visualized. There is trace pulmonic valvular regurgitation. <Conclusion> Left ventricle systolic function is normal. The Ejection Fraction is 65-70%. Hypertensive heart disease. Diastolic dysfunction. No aortic regurgitation is present. There is no mitral valve regurgitation noted. There is trace to mild tricuspid regurgitation. There is trace pulmonic valvular regurgitation.
[2017-09-28] MEDS: Fluticasone-Salmeterol 250-50mcg Diskus INH SCH ×2 (07:17→19:23)
[2017-09-28] MEDS ORDERED: MethylPREDNISolone 40 mg Vial IVP SCH ×2 (08:00→10:00)
[2017-09-28 08:53] LABS: BASO # 0.1 K/uL (0.0-0.2); BASO % 0.3 % (0.0-2.0); EOS % 0.1 % (0.0-4.0); HEMOGLOBIN 15.3 g/dL (12.0-18.0); LYMPH % 5.1 % (20.0-40.0); MEAN CELL VOLUME 88.2 fL (80.0-94.0); MEAN CORPUSCULAR HEMOGLOBIN 29.8 pg (27.0-31.0); MEAN CORPUSCULAR HGB CONC 33.8 g/dL (33.0-37.0); MEAN PLATELET VOLUME 8.1 fL (7.2-11.7); MONO # 0.6 K/uL (0.0-0.8); MONO % 3.2 % (0.0-10.0); NEUT # 17.8 K/uL (1.8-7.0); NEUT % 91.3 % (50.0-75.0); PLATELET COUNT 234 K/uL (130-400); RBC 5.12 Mil/uL (4.40-5.90); RED CELL DISTRIBUTION WIDTH 13.8 % (11.5-14.5); WHITE BLOOD COUNT 19.5 K/uL (4.8-10.8)
[2017-09-28 09:11] LABS: ALB/GLOB RATIO 1.3 (1.0-2.1); ALBUMIN 4.2 g/dL (3.5-5.0); ALT/SGPT 113 U/L (21-72); AST/SGOT 188 U/L (17-59); BLOOD UREA NITROGEN 20 mg/dL (9-20); CALCIUM 9.4 mg/dl (8.6-10.4); GFR AFRICAN-AMERICAN > 60; GFR NON-AFRICAN AMERICAN > 60
[2017-09-28] MEDS: Pantoprazole 40 mg EC Tab PO SCH (09:34)
[2017-09-28] MEDS: diltiaZEM 240 mg/24 Hours CD Cap PO SCH (09:35)
[2017-09-28] MEDS: Enoxaparin 40 mg Syringe SC SCH (09:39)
--- NOTE | 2017-09-28 09:51 | CP.PCM.PN ---
Subjective - Date & Time of Evaluation Date of Evaluation: 09/28/17 Time of Evaluation: 09:45 - Subjective Subjective: Medical Attending Note: Patient seen and examined at bedside. Patient has had a realization in regards to his health. He is aware he needs to re-invest in his health and to take care of himself and he is amenable towards working towards that goal. Patient denies headache, denies fever, reports breathing improved, cough dry, denies chest pain, denies abdominal pain, reports he has not had a bowel movement since coming to the hospital. Objective - Vital Signs/Intake and Output Vital Signs (last 24 hours): Temp Pulse Resp BP Pulse Ox 98.8 F 85 18 151/77 H 99 09/28/17 00:00 09/28/17 04:00 09/28/17 04:00 09/28/17 04:00 09/28/17 04:00 Intake and Output: 09/28/17 09/28/17 06:59 18:59 Intake Total 1450 Output Total 4000 Balance -2550 - Medications Medications: Current Medications Albuterol/Ipratropium (Duoneb 3 Mg/0.5 Mg (3 Ml) Ud) 3 ml INH RQ4 [facility] Diltiazem HCl (Cardizem Cd) 240 mg PO DAILY [facility] Last Admin: 09/28/17 09:35 Dose: 240 mg Enoxaparin Sodium (Lovenox) 40 mg SC DAILY [facility] Last Admin: 09/28/17 09:39 Dose: Not Given Ceftriaxone Sodium 1 gm/ (Sodium Chloride) 100 mls @ 200 mls/hr IVPB Q24H [facility] PRN Reason: Protocol Last Admin: 09/27/17 16:55 Dose: 200 mls/hr Methylprednisolone (Solu-Medrol) 40 mg IVP Q8 [facility] Last Admin: 09/28/17 09:33 Dose: 40 mg Montelukast Sodium (Singulair) 10 mg PO HS [facility] Last Admin: 09/27/17 21:44 Dose: 10 mg Pantoprazole Sodium (Protonix Ec Tab) 40 mg PO DAILY [facility] Last Admin: 09/28/17 09:34 Dose: 40 mg Fluticasone/Salmeterol (Advair Diskus 250/50) 1 puff INH RQ12 [facility] Last Admin: 09/28/17 07:17 Dose: 1 puff - Labs Labs: 09/28/17 08:49 09/28/17 08:49 PT 11.4 SECONDS (9.7-12.2) 09/25/17 22:35 INR 1.0 09/25/17 22:35 APTT 42 SECONDS (21-34) H 09/25/17 22:35 - Constitutional Appears: Non-toxic, No Acute Distress - Head Exam Head Exam: NORMAL INSPECTION - Eye Exam Eye Exam: EOMI - ENT Exam ENT Exam: Mucous Membranes Moist - Respiratory Exam Respiratory Exam: Clear to Ausculation Bilateral, NORMAL BREATHING PATTERN. absent: Rales, Rhonchi, Wheezes - Cardiovascular Exam Cardiovascular Exam: Tachycardia, +S1, +S2 - GI/Abdominal Exam GI & Abdominal Exam: Soft, Normal Bowel Sounds. absent: Distended, Firm, Guarding, Rigid, Tenderness, Rebound - Extremities Exam Extremities Exam: absent: Pedal Edema, Tenderness - Back Exam Back Exam: absent: CVA tenderness (L), CVA tenderness (R) - Neurological Exam Neurological Exam: Alert, Awake, Oriented x3 Neuro motor strength exam: Left Upper Extremity: 5, Right Upper Extremity: 5, Left Lower Extremity: 5, Right Lower Extremity: 5 - Psychiatric Exam Psychiatric exam: Normal Affect, Normal Mood - Skin Skin Exam: Dry, Intact, Normal Color, Warm Assessment and Plan (1) Respiratory failure Status: Acute (2) Status asthmaticus Status: Acute (3) Asthma Status: Acute (4) GERD (gastroesophageal reflux disease) Status: Acute (5) Prophylactic measure Status: Acute Attending/Attestation - Attestation I have personally seen and examined this patient.: Yes I have fully participated in the care of the patient.: Yes I have reviewed all pertinent clinical information, including history, physical exam and plan: Yes Notes (Text): 1) Acute Respiratory Failure with Hypercapnia Assessment/Plan * Patient intubated 09/25/17; extubated * Multiple ED visits of asthma in the past two years * Off sedation, tolerated trial 09/26/17 * Patient doing well today. * Patient will need his peripheral access reestablished * Decrease Solumedrol 40mg IV Q8H * C/w Duonebs inhaled every 4 hours * c/w Singulair 10mg PO qhS 2) SIRS Assessment/Plan * Criteria: elevated white count, hypoxia * Unclear source of infection * Lactate: 3.4; pending repeat lactate * Procalcitonin: 2.42 pending repeat lactate * Chest xray (09/26/17): Endotracheal tube extending into the mid thoracic trachea , no focal infiltrate or effusion. Heart size within normal limits * Chest xray (09/26/17): lines and tubes in stable position. no focal infiltrate or effusion. heart size within normal limits. gaseous distention of the stomach * d/c Azithromycin 500mg IVPB Daily (active since 09/26/17) secondary elevated LFTs * Rocephin 1gm IVPB daily (active since 09/26/17) * Blood culture: no growth after 24hours X2 * Urine culture: no growth * Will repeat chest xray 3) Asthma, Severe Persistent Status Asthmaticus Assessment/Plan * Patient intubated 09/25/17 * Multiple ED visits of asthma in the past two years * Patient received EJ 09/27/17 * Pulmonary (Dr. Argueta) automation manager-->help appreciated * Patient does not have a center consultant. Has severe persistent asthma. Previously not taking nebulizer treatments. * Solumedrol 40mg IVP Q8H * Singulair 10mg PO daily * Duonebs 3ml INH RQ4H 4) Cannabis Assessment/Plan * Patient uses natural weed * positive UDS for weed only * Has been counselled extensively today * Cancelled Head CT 5) Gerd Assessment/Plan * Protonix 40mg IVP daily 6) Adjustment disorder with depressed mood Assessment/Plan * Psychiatry (Dr. Dutta) on consult-->help appreciated * Patient psychiatrically stabe and clear for discharge * Zoloft 50mg PO daily * Trazodone 50mg PO qHS 7) Hypertension Assessment/Plan * Cardizem 240mg PO daily * May need a second agent 8) Transaminitis Assessment/Plan * d/c Azithromycin * Will monitor LFTs * Check hepatitis panel 9) Prophylactic measure Assessment/Plan * Protonix 40mg IVP daily * intubated 09/25/17; extubated 09/27/17 * Transferred out from the unit on 09/27/17 * SCDS b/l * Physical therapy eval
[2017-09-28 09:52] LABS: BANDS 6 % (0-2); LYMPHOCYTE 6 % (20-40); MONOCYTE 2 % (0-10); NEUTROPHIL 86 % (50-75); PLATELET ESTIMATE NORMAL (NORMAL); TOTAL CELLS COUNTED 100
--- NOTE | 2017-09-28 13:08 | RAD ---
HISTORY: elevated white count, hx of asthma COMPARISON: Chest radiograph dated 09/26/2017. FINDINGS: LUNGS: No active pulmonary disease. PLEURA: No significant pleural effusion identified, no pneumothorax apparent. CARDIOVASCULAR: Normal. OSSEOUS STRUCTURES: No significant abnormalities. VISUALIZED UPPER ABDOMEN: Normal. OTHER FINDINGS: Removal of enteric tube. IMPRESSION: No active disease.
--- NOTE | 2017-09-28 18:45 | US ---
HISTORY: LFTs, Bandemia COMPARISON: None. TECHNIQUE: Sonographic evaluation of the abdomen. FINDINGS: LIVER: Enlarged, measuring 19.7 cm. Increased echogenicity of the liver parenchyma. Nonspecific echogenic structure with hypoechoic rim in the right hepatic lobe measuring 1.7 x 1.6 x 1.5 cm. No intrahepatic bile duct dilatation. GALLBLADDER: Unremarkable. No gallstones. COMMON BILE DUCT: Measures 4 mm. No stones. No dilatation. PANCREAS: Unremarkable as visualized. No mass. No ductal dilatation. RIGHT KIDNEY: Measures 11.8 x 4.7 x 5.5cm. Normal echogenicity. No calculus, mass, or hydronephrosis. LEFT KIDNEY: Measures 11.5 x 4.9 x 4.8cm. Normal echogenicity. No calculus, mass, or hydronephrosis. SPLEEN: Normal in size and contour. No mass. AORTA: No aneurysmal dilatation. IVC: Unremarkable. OTHER FINDINGS: None. IMPRESSION: Hepatomegaly with steatosis. Nonspecific echogenic structure with hypoechoic rim in the right hepatic lobe measuring up to 1.7 cm. Contrast-enhanced MRI of the liver is recommended for further evaluation.
[2017-09-28] MEDS: MethylPREDNISolone 40 mg Vial IVP SCH (21:49)
[2017-09-29] MEDS: Albuterol-Ipratrop 3 mg / 0.5 (3 ml) UD INH SCH ×5 (00:15→16:22)
[2017-09-29 00:34] VITALS: RESP 20; O2SAT 100
[2017-09-29] MEDS: MethylPREDNISolone 40 mg Vial IVP SCH (05:17)
[2017-09-29 07:45] VITALS: BP 139/90; PULSE 86; TEMP 97.8
[2017-09-29] MEDS: Fluticasone-Salmeterol 250-50mcg Diskus INH SCH (07:51)
--- NOTE | 2017-09-29 09:49 | CP.PCM.PN ---
Subjective - Date & Time of Evaluation Date of Evaluation: 09/29/17 Time of Evaluation: 09:45 - Subjective Subjective: Medical Attending Note: Patient seen and examined this morning. Patient reports he breathing better this morning. Patient denies fever, denies chills, denies chest pain, denies abdominal pain, reports he had a bowel movement yesterday. Awaiting blood work for today, discussed with his nurse. Will lower IV steroids for this evening. Objective - Vital Signs/Intake and Output Vital Signs (last 24 hours): Temp Pulse Resp BP Pulse Ox 97.8 F 86 20 139/90 100 09/29/17 07:44 09/29/17 07:44 09/29/17 07:44 09/29/17 07:44 09/29/17 07:44 - Medications Medications: Current Medications Albuterol/Ipratropium (Duoneb 3 Mg/0.5 Mg (3 Ml) Ud) 3 ml INH RQ4 [facility] Last Admin: 09/29/17 07:51 Dose: 3 ml Diltiazem HCl (Cardizem Cd) 240 mg PO DAILY [facility] Last Admin: 09/28/17 09:35 Dose: 240 mg Enoxaparin Sodium (Lovenox) 40 mg SC DAILY [facility] Last Admin: 09/28/17 09:39 Dose: Not Given Hydralazine HCl (Apresoline) 10 mg IVP Q6H PRN PRN Reason: Systolic Blood Pressure Ceftriaxone Sodium 1 gm/ (Sodium Chloride) 100 mls @ 200 mls/hr IVPB Q24H [facility] PRN Reason: Protocol Last Admin: 09/28/17 12:31 Dose: 200 mls/hr Methylprednisolone (Solu-Medrol) 40 mg IVP Q12 [facility] Montelukast Sodium (Singulair) 10 mg PO HS [facility] Last Admin: 09/28/17 21:49 Dose: 10 mg Pantoprazole Sodium (Protonix Inj) 40 mg IVP DAILY [facility] Fluticasone/Salmeterol (Advair Diskus 250/50) 1 puff INH RQ12 [facility] Last Admin: 09/29/17 07:51 Dose: 1 puff - Labs Labs: 09/28/17 08:49 09/28/17 08:49 PT 11.4 SECONDS (9.7-12.2) 09/25/17 22:35 INR 1.0 09/25/17 22:35 APTT 42 SECONDS (21-34) H 09/25/17 22:35 - Constitutional Appears: Non-toxic, No Acute Distress - Head Exam Head Exam: NORMAL INSPECTION Additional comments: EJ in neck - Eye Exam Eye Exam: EOMI - ENT Exam ENT Exam: Mucous Membranes Moist - Respiratory Exam Respiratory Exam: Clear to Ausculation Bilateral, NORMAL BREATHING PATTERN. absent: Rales, Rhonchi, Wheezes - Cardiovascular Exam Cardiovascular Exam: REGULAR RHYTHM, +S1, +S2 - GI/Abdominal Exam GI & Abdominal Exam: Soft, Normal Bowel Sounds. absent: Distended, Firm, Guarding, Rigid, Tenderness, Rebound - Extremities Exam Extremities Exam: absent: Pedal Edema, Tenderness Additional comments: right upper extremity: ecchymoses - Neurological Exam Neurological Exam: Alert, Awake, Oriented x3 Neuro motor strength exam: Left Upper Extremity: 5, Right Upper Extremity: 5, Left Lower Extremity: 5, Right Lower Extremity: 5 - Psychiatric Exam Psychiatric exam: Normal Affect, Normal Mood - Skin Skin Exam: Dry, Intact, Warm Additional comments: ecchymoses right upper extremity Assessment and Plan (1) Respiratory failure Status: Resolved (2) Status asthmaticus Status: Resolved (3) Asthma Status: Chronic (4) GERD (gastroesophageal reflux disease) Status: Chronic (5) Prophylactic measure Status: Acute Attending/Attestation - Attestation I have personally seen and examined this patient.: Yes I have fully participated in the care of the patient.: Yes I have reviewed all pertinent clinical information, including history, physical exam and plan: Yes Notes (Text): 1) Acute Respiratory Failure with Hypercapnia Assessment/Plan * Patient intubated 09/25/17; extubated 09/26/17 * Multiple ED visits of asthma in the past two years * Off sedation, tolerated trial 09/26/17 * Patient doing well today. * EJ placed 09/27/17 * Decrease Solumedrol 40mg IV Q12H * C/w Duonebs inhaled every 4 hours * c/w Singulair 10mg PO qhS 2) SIRS Assessment/Plan * Criteria: elevated white count, hypoxia * Unclear source of infection * Lactate: 3.4; Lactate: 3.5 * Procalcitonin: 2.42-->0.72 * Chest xray (09/26/17): Endotracheal tube extending into the mid thoracic trachea , no focal infiltrate or effusion. Heart size within normal limits * Chest xray (09/26/17): lines and tubes in stable position. no focal infiltrate or effusion. heart size within normal limits. gaseous distention of the stomach * Chest xray (09/28/17): no active disease * d/c Azithromycin 500mg IVPB Daily (active since 09/26/17) secondary elevated LFTs * Rocephin 1gm IVPB daily (active since 09/26/17) * Blood culture: no growth after 48hours X2 * Urine culture: no growth * Sputum Normal lily * Will repeat chest xray 3) Asthma, Severe Persistent Status Asthmaticus Assessment/Plan * Patient intubated 09/25/17; extubated * Multiple ED visits of asthma in the past two years * Patient received EJ 09/27/17 * Pulmonary (Dr. James) telephone maintainer-->help appreciated * Patient was seen and evaluated by dr. james on 09/28/17--->awaiting for consult to populate * Patient does not have a golf club head inspector. Has severe persistent asthma. Previously not taking nebulizer treatments. * Solumedrol 40mg IVP Q12H * Singulair 10mg PO daily * Duonebs 3ml INH RQ4H 4) Cannabis Assessment/Plan * Patient uses natural weed * positive UDS for weed only * Has been counselled extensively today * Cancelled Head CT 5) Gerd Assessment/Plan * Protonix 40mg IVP daily 6) Adjustment disorder with depressed mood Assessment/Plan * Psychiatry (Dr. Dutta) on consult-->help appreciated * Patient psychiatrically stabe and clear for discharge * d/c Zoloft 50mg PO daily secondary to LFTs * d/c Trazodone 50mg PO qHS secondary to LFTs 7) Hypertension Assessment/Plan * Cardizem 240mg PO daily * May need a second agent 8) Transaminitis Assessment/Plan * Abdominal US (09/28/17): hepatomegaly with steatosis. Nonspecific echogenic structure with hypoechoic rim in the right hepatic lobe up to 1.7cm * d/c Azithromycin 09/28/17 * Will monitor LFTs * pending blood work today * Check hepatitis panel 9) Impaired Glucose Intolerance Assessment/Plan * A1c: 5.8 * Will need a repeat a1c in one year * Advocate lifestyle modifications and exercise to prevent overt diabetes 10) Prophylactic measure Assessment/Plan * Protonix 40mg IVP daily * intubated 09/25/17; extubated 09/27/17 * Transferred out from the unit on 09/27/17 * SCDS b/l * Physical therapy eval Awaiting Blood work Lower IV steroids Monitor LFTs Possible d/c tomorrow we are awaiting blood work results.
[2017-09-29] MEDS: diltiaZEM 240 mg/24 Hours CD Cap PO SCH (10:20)
[2017-09-29] MEDS: Enoxaparin 40 mg Syringe SC SCH (10:20)
[2017-09-29 11:54] LABS: BASO % 0.1 % (0.0-2.0); HEMOGLOBIN 14.6 g/dL (12.0-18.0); LYMPH # 1.1 K/uL (1.0-4.3); LYMPH % 6.3 % (20.0-40.0); MEAN CELL VOLUME 87.7 fL (80.0-94.0); MEAN CORPUSCULAR HEMOGLOBIN 29.9 pg (27.0-31.0); MEAN CORPUSCULAR HGB CONC 34.1 g/dL (33.0-37.0); MEAN PLATELET VOLUME 8.1 fL (7.2-11.7); MONO % 5.5 % (0.0-10.0); NEUT # 15.5 K/uL (1.8-7.0); NEUT % 88.1 % (50.0-75.0); NRBC % 0.1 % (0.0-2.0); PLATELET COUNT 223 K/uL (130-400); RBC 4.87 Mil/uL (4.40-5.90); RED CELL DISTRIBUTION WIDTH 13.5 % (11.5-14.5); WHITE BLOOD COUNT 17.5 K/uL (4.8-10.8)
[2017-09-29 12:19] LABS: ALB/GLOB RATIO 1.1 (1.0-2.1); ALBUMIN 3.7 g/dL (3.5-5.0); ALT/SGPT 130 U/L (21-72); AST/SGOT 128 U/L (17-59); BLOOD UREA NITROGEN 22 mg/dL (9-20); CALCIUM 9.1 mg/dl (8.6-10.4); GFR AFRICAN-AMERICAN > 60; GFR NON-AFRICAN AMERICAN 60
[2017-09-29 12:31] LABS: BANDS 3 % (0-2); LYMPHOCYTE 3 % (20-40); MONOCYTE 4 % (0-10); NEUTROPHIL 90 % (50-75); TOTAL CELLS COUNTED 100
[2017-09-29 12:32] LABS: PLATELET ESTIMATE NORMAL (NORMAL)
--- NOTE | 2017-09-29 16:55 | CP.PCM.DIS ---
<Jodi Nixon DO - Last Filed: 09/29/17 17:22> Provider - Provider Date of Admission: 09/25/17 23:53 Attending physician: Rosalba Love DO Consults: Dr. Tra Argueta Time Spent in preparation of Discharge (in minutes): 40 Diagnosis - Discharge Diagnosis (1) Asthma with status asthmaticus Status: Acute Comment: Patient intubated on admission 09/25/17 due to respiratory distress and hypoxia. Patient was extubated on 09/26/17 after weaning trial. Patient given IV steroids, nebulizers, singulair, advair while hospitalized. Patient covered with ceftriaxone for elevated white count, elevated lactate. Antibiotics were discontinued 09/29/17 due to elevated LFTS. Patient completed 5 days antibiotics. (2) HTN (hypertension) Status: Acute Comment: Patient started on Cardizem 240mg daily. (3) Transaminitis Status: Acute Comment: LFTs improving, however not normalized. Patient advised to stay for further monitoring but patient declined and signed out AMA. Hospital Course - Lab Results Lab Results: Micro Results 09/26/17 10:46 Blood-Venous Blood Culture - Preliminary NO GROWTH AFTER 3 DAYS 09/26/17 10:46 Blood-Venous Blood Culture - Preliminary NO GROWTH AFTER 3 DAYS 09/26/17 10:46 Sputum Gram Stain - Final 09/26/17 10:46 Sputum Sputum Culture - Final NORMAL ORAL TAYLOR 09/26/17 Unknown Nose MRSA Culture (Admit) - Final MRSA NOT DETECTED 09/26/17 10:46 Urine Urine Culture - Final No Growth (<1,000 CFU/ML) Most Recent Lab Values WBC 17.5 K/uL (4.8-10.8) H 09/29/17 11:45 RBC 4.87 Mil/uL (4.40-5.90) 09/29/17 11:45 Hgb 14.6 g/dL (12.0-18.0) 09/29/17 11:45 Hct 42.7 % (35.0-51.0) 09/29/17 11:45 MCV 87.7 fL (80.0-94.0) 09/29/17 11:45 MCH 29.9 pg (27.0-31.0) 09/29/17 11:45 MCHC 34.1 g/dL (33.0-37.0) 09/29/17 11:45 RDW 13.5 % (11.5-14.5) 09/29/17 11:45 Plt Count 223 K/uL (130-400) 09/29/17 11:45 MPV 8.1 fL (7.2-11.7) 09/29/17 11:45 Neut % (Auto) 88.1 % (50.0-75.0) H 09/29/17 11:45 Lymph % (Auto) 6.3 % (20.0-40.0) L 09/29/17 11:45 [place] % (Auto) 5.5 % (0.0-10.0) 09/29/17 11:45 Eos % (Auto) 0.0 % (0.0-4.0) 09/29/17 11:45 Baso % (Auto) 0.1 % (0.0-2.0) 09/29/17 11:45 Neut # (Auto) 15.5 K/uL (1.8-7.0) H 09/29/17 11:45 Lymph # (Auto) 1.1 K/uL (1.0-4.3) 09/29/17 11:45 [place] # (Auto) 1.0 K/uL (0.0-0.8) H 09/29/17 11:45 Eos # (Auto) 0.0 K/uL (0.0-0.7) 09/29/17 11:45 Baso # (Auto) 0.0 K/uL (0.0-0.2) 09/29/17 11:45 Neutrophils % (Manual) 90 % (50-75) H 09/29/17 11:45 Band Neutrophils % 3 % (0-2) H 09/29/17 11:45 Lymphocytes % (Manual) 3 % (20-40) L 09/29/17 11:45 Monocytes % (Manual) 4 % (0-10) 09/29/17 11:45 Metamyelocytes % 1 % (0-0) H 09/26/17 06:14 Differential Comment 09/25/17 22:35 Platelet Estimate Normal (NORMAL) 09/29/17 11:45 RBC Morphology Normal 09/29/17 11:45 PT 11.4 SECONDS (9.7-12.2) 09/25/17 22:35 INR 1.0 09/25/17 22:35 APTT 42 SECONDS (21-34) H 09/25/17 22:35 Puncture Site Rad 09/26/17 05:27 pCO2 32 mm/Hg (35-45) L 09/26/17 05:27 pO2 236 mm/Hg (80-100) H 09/26/17 05:27 HCO3 21.4 mmol/L (21-28) 09/26/17 05:27 ABG pH 7.39 (7.35-7.45) 09/26/17 05:27 ABG Total CO2 20.4 mmol/L (22-28) L 09/26/17 05:27 ABG O2 Saturation 100.2 % (95-98) H 09/26/17 05:27 ABG Base Excess -4.5 mmol/L (-2.0-3.0) L 09/26/17 05:27 ABG Hemoglobin 14.9 g/dL (11.7-17.4) 09/26/17 05:27 ABG Carboxyhemoglobin 1.5 % (0.5-1.5) 09/26/17 05:27 POC ABG HHb (Measured) -0.2 % (0.0-5.0) L 09/26/17 05:27 ABG Methemoglobin 1.3 % (0.0-3.0) 09/26/17 05:27 Darin Test Pos 09/26/17 05:27 ABG Potassium 4.0 mmol/L (3.6-5.2) 09/25/17 23:33 A-a O2 Difference 9.0 mm/Hg 09/26/17 05:27 Respiratory Index 0 09/26/17 05:27 Hgb O2 Saturation 97.3 % (95.0-98.0) 09/26/17 05:27 Sodium 138.0 mmol/l (132-148) 09/25/17 23:33 Chloride 105.0 mmol/L (98-107) 09/25/17 23:33 Glucose 255 mg/dl (75-110) H 09/25/17 23:33 Lactate 3.4 mmol/L (0.7-2.1) H 09/25/17 23:33 Vent Mode Prvc 09/26/17 05:27 Mechanical Rate 22 09/26/17 05:27 FiO2 40.0 % 09/26/17 05:27 Tidal Volume 600 09/26/17 05:27 PEEP 5 09/26/17 05:27 Crit Value Called To Dr lutz 09/25/17 23:33 Crit Value Called By Jordyn petty rt 09/25/17 23:33 Crit Value Read Back Y 09/25/17 23:33 Blood Gas Notified Time 15 09/25/17 23:33 Sodium 139 mmol/L (132-148) 09/29/17 11:45 Potassium 4.2 mmol/L (3.6-5.2) 09/29/17 11:45 Chloride 103 mmol/L (98-107) 09/29/17 11:45 Carbon Dioxide 25 mmol/L (22-30) 09/29/17 11:45 Anion Gap 16 (10-20) 09/29/17 11:45 BUN 22 mg/dL (9-20) H 09/29/17 11:45 Creatinine 1.4 mg/dL (0.8-1.5) 09/29/17 11:45 Est GFR ( Amer) > 60 09/29/17 11:45 Est GFR (Non-Af Amer) 60 09/29/17 11:45 Random Glucose 195 mg/dL (75-110) H 09/29/17 11:45 Hemoglobin A1c 5.8 % (4.2-6.5) 09/27/17 06:17 Lactic Acid 3.5 mmol/L (0.7-2.1) H 09/28/17 11:08 Calcium 9.1 mg/dl (8.6-10.4) 09/29/17 11:45 Phosphorus 5.1 mg/dL (2.5-4.5) H 09/28/17 08:49 Magnesium 2.5 mg/dL (1.6-2.3) H 09/29/17 11:45 Total Bilirubin 0.6 mg/dL (0.2-1.3) 09/29/17 11:45 AST 128 U/L (17-59) H D 09/29/17 11:45 ALT 130 U/L (21-72) H 09/29/17 11:45 Alkaline Phosphatase 66 U/L (38-126) 09/29/17 11:45 Troponin I < 0.0120 ng/mL (0.00-0.120) 09/25/17 22:35 Total Protein 7.0 g/dL (6.3-8.3) 09/29/17 11:45 Albumin 3.7 g/dL (3.5-5.0) 09/29/17 11:45 Globulin 3.3 gm/dL (2.2-3.9) 09/29/17 11:45 Albumin/Globulin Ratio 1.1 (1.0-2.1) 09/29/17 11:45 Procalcitonin 0.72 NG/ML (0.19-0.49) H 09/28/17 08:49 Free T4 0.85 ng/dL (0.78-2.19) 09/27/17 09:52 Arterial Blood Potassium 4.0 mmol/L (3.6-5.2) 09/25/17 23:33 Urine Color Straw (YELLOW) 09/26/17 10:46 Urine Clarity Hazy (Clear) 09/26/17 10:46 Urine pH 5.0 (5.0-8.0) 09/26/17 10:46 Ur Specific [place] 1.003 (1.003-1.030) 09/26/17 10:46 Urine Protein Negative mg/dL (NEGATIVE) 09/26/17 10:46 Urine Glucose (UA) Negative mg/dL (Normal) 09/26/17 10:46 Urine Ketones Negative mg/dL (NEGATIVE) 09/26/17 10:46 Urine Blood 3+ (NEGATIVE) H 09/26/17 10:46 Urine Nitrate Negative (NEGATIVE) 09/26/17 10:46 Urine Bilirubin Negative (NEGATIVE) 09/26/17 10:46 Urine Urobilinogen Normal mg/dL (0.2-1.0) 09/26/17 10:46 Ur Leukocyte Esterase Neg Steven/uL (Negative) 09/26/17 10:46 Urine WBC (Auto) 1 /hpf (0-5) 09/26/17 10:46 Urine RBC (Auto) 2 /hpf (0-3) 09/26/17 10:46 Ur Squamous Epith Cells < 1 /hpf (0-5) 09/26/17 10:46 Uric Acid Crystals Few /hpf (<OCC) H 09/26/17 10:46 Urine Bacteria Rare (<OCC) 09/26/17 10:46 Urine Opiates Screen Negative (NEGATIVE) 09/25/17 23:57 Urine Methadone Screen Negative (NEGATIVE) 09/25/17 23:57 Ur Barbiturates Screen Negative (NEGATIVE) 09/25/17 23:57 Ur Phencyclidine Scrn Negative (NEGATIVE) 09/25/17 23:57 Ur Amphetamines Screen Negative (NEGATIVE) 09/25/17 23:57 U Benzodiazepines Scrn Negative (NEGATIVE) 09/25/17 23:57 U Oth Cocaine Metabols Negative (NEGATIVE) 09/25/17 23:57 U Cannabinoids Screen Positive (NEGATIVE) H 09/25/17 23:57 - Hospital Course Hospital Course: On Admission: Patient is a 31M who presents with asthma exacerbation not relieved with treatment. Patient became combative due to hypoxia per ED physician and ended up needing intubation. This is the first time the patient has been intubated for status asthmaticus. Patient has been to ED multiple times for SOB and asthma. Patient takes nebulizer at home. Patient seen and examined at bedside post intubation on [facility] A/C TV 530 FIO2 60% PEEP 5 RR 18, ABG with shock drawn , Drug Screen drawn, not resulted. During hospitalization: Patient was intubated on 09/25/17 and extubated on 09/26/17. Patient was seen by Dr. Argueta for pulmonology. Patient was treated with solumedrol, duonebs, singulair, advair, azithromycin, rocephin. Patient met SIRS criteria on admission with elevated white count, hypoxia. Patient had elevated lactate and procalcitonin which was down-trending. Patient's LFTs increased during hospitalization and he was taken off of ceftriaxone. Patient's LFTs could not be further monitored as patient chose to leave against medical advice. Patient was advised about healthy diet and lifestyle to help with weight and A1c reduction. Patient was advised he will need strict medication compliance and medical follow up in the clinic at [facility]. Patient signed out against medical advice (AMA) on 09/29/17. Risks of leaving AMA explained to patient, including worsening of his current condition, difficulty breathing, rising LFTs, even . Patient accepts these risks and chooses to leave AMA. Patient given prescriptions for advair, singulair, prednisone, cardizem, albuterol nebulized solution and albuterol HFA. Patient given information to follow up in the [facility]. Patient states he will follow up with clinic on 10/01/17. Discharge Exam - Head Exam Head Exam: NORMAL INSPECTION - Eye Exam Eye Exam: EOMI - ENT Exam ENT Exam: Mucous Membranes Moist - Respiratory Exam Respiratory Exam: Wheezes (mild expiratory wheeze left lung base), NORMAL BREATHING PATTERN - Cardiovascular Exam Cardiovascular Exam: +S1, +S2 - GI/Abdominal Exam GI & Abdominal Exam: Normal Bowel Sounds, Soft. absent: Tenderness - Extremities Exam Extremities exam: normal inspection - Neurological Exam Neurological exam: Alert, Oriented x3 - Psychiatric Exam Psychiatric exam: Normal Affect - Skin Skin Exam: Warm Discharge Plan - Discharge Medications Prescriptions: Albuterol 0.083% [Albuterol 0.083% Inhal Erica (2.5 mg/3 ml) UD] 3 ml IH Q6 PRN # 30 neb PRN Reason: Shortness Of Breath Albuterol HFA [Ventolin HFA 90 mcg/actuation (8 g)] 1 puff IH Q6 PRN #1 inhaler PRN Reason: Shortness Of Breath diltiaZEM CD [Cardizem CD] 240 mg PO DAILY #30 cap Fluticasone/Salmeterol 250/50 [Advair Diskus 250/50] 1 puff INH RQ12 #1 inhaler Montelukast [Singulair] 10 mg PO HS #30 tab Prednisone [Deltasone] 40 mg PO DAILY #5 tablet - Follow Up Plan Condition: GUARDED Disposition: AGAINST MEDICAL ADVICE Additional Instructions: Patient leaving against medical advice. Risks of leaving AMA explained to patient, including worsening of his current condition, difficulty breathing, rising LFTs, even . Patient accepts these risks and chooses to leave AMA. Patient given prescriptions for advair, singulair, prednisone, cardizem, albuterol nebulized solution and albuterol HFA. Patient given information to follow up in the [facility]. Referrals: [facility] [Outside] <Rosalba Love V - Last Filed: 09/29/17 21:08> Provider - Provider Date of Admission: 09/25/17 23:53 Attending physician: Rosalba Love DO Diagnosis - Discharge Diagnosis (1) Left against medical advice Status: Acute Comment: Resident discussed risks leaving hospital prematurely. Patient's IV steroids pending tapered. Repeat Lactate pending. Patient decided will leave against medical advice. Patient provided scripts including Ventolin, Advair, Singluair, Cardizem CD, and Prednisone. He is advised he should establish care with PMD such as the [facility]. (2) Respiratory failure Status: Resolved (3) Status asthmaticus Status: Resolved (4) Asthma Status: Chronic (5) GERD (gastroesophageal reflux disease) Status: Chronic (6) Prophylactic measure Status: Acute Hospital Course - Lab Results Lab Results: Micro Results 09/28/17 15:55 Urine Urine Culture - Final No Growth (<1,000 CFU/ML) 09/26/17 10:46 Blood-Venous Blood Culture - Preliminary NO GROWTH AFTER 3 DAYS 09/26/17 10:46 Blood-Venous Blood Culture - Preliminary NO GROWTH AFTER 3 DAYS 09/26/17 10:46 Sputum Gram Stain - Final 09/26/17 10:46 Sputum Sputum Culture - Final NORMAL ORAL TAYLOR 09/26/17 Unknown Nose MRSA Culture (Admit) - Final MRSA NOT DETECTED 09/26/17 10:46 Urine Urine Culture - Final No Growth (<1,000 CFU/ML) Most Recent Lab Values WBC 17.5 K/uL (4.8-10.8) H 09/29/17 11:45 RBC 4.87 Mil/uL (4.40-5.90) 09/29/17 11:45 Hgb 14.6 g/dL (12.0-18.0) 09/29/17 11:45 Hct 42.7 % (35.0-51.0) 09/29/17 11:45 MCV 87.7 fL (80.0-94.0) 09/29/17 11:45 MCH 29.9 pg (27.0-31.0) 09/29/17 11:45 MCHC 34.1 g/dL (33.0-37.0) 09/29/17 11:45 RDW 13.5 % (11.5-14.5) 09/29/17 11:45 Plt Count 223 K/uL (130-400) 09/29/17 11:45 MPV 8.1 fL (7.2-11.7) 09/29/17 11:45 Neut % (Auto) 88.1 % (50.0-75.0) H 09/29/17 11:45 Lymph % (Auto) 6.3 % (20.0-40.0) L 09/29/17 11:45 [place] % (Auto) 5.5 % (0.0-10.0) 09/29/17 11:45 Eos % (Auto) 0.0 % (0.0-4.0) 09/29/17 11:45 Baso % (Auto) 0.1 % (0.0-2.0) 09/29/17 11:45 Neut # (Auto) 15.5 K/uL (1.8-7.0) H 09/29/17 11:45 Lymph # (Auto) 1.1 K/uL (1.0-4.3) 09/29/17 11:45 [place] # (Auto) 1.0 K/uL (0.0-0.8) H 09/29/17 11:45 Eos # (Auto) 0.0 K/uL (0.0-0.7) 09/29/17 11:45 Baso # (Auto) 0.0 K/uL (0.0-0.2) 09/29/17 11:45 Neutrophils % (Manual) 90 % (50-75) H 09/29/17 11:45 Band Neutrophils % 3 % (0-2) H 09/29/17 11:45 Lymphocytes % (Manual) 3 % (20-40) L 09/29/17 11:45 Monocytes % (Manual) 4 % (0-10) 09/29/17 11:45 Metamyelocytes % 1 % (0-0) H 09/26/17 06:14 Differential Comment 09/25/17 22:35 Platelet Estimate Normal (NORMAL) 09/29/17 11:45 RBC Morphology Normal 09/29/17 11:45 PT 11.4 SECONDS (9.7-12.2) 09/25/17 22:35 INR 1.0 09/25/17 22:35 APTT 42 SECONDS (21-34) H 09/25/17 22:35 Puncture Site Rad 09/26/17 05:27 pCO2 32 mm/Hg (35-45) L 09/26/17 05:27 pO2 236 mm/Hg (80-100) H 09/26/17 05:27 HCO3 21.4 mmol/L (21-28) 09/26/17 05:27 ABG pH 7.39 (7.35-7.45) 09/26/17 05:27 ABG Total CO2 20.4 mmol/L (22-28) L 09/26/17 05:27 ABG O2 Saturation 100.2 % (95-98) H 09/26/17 05:27 ABG Base Excess -4.5 mmol/L (-2.0-3.0) L 09/26/17 05:27 ABG Hemoglobin 14.9 g/dL (11.7-17.4) 09/26/17 05:27 ABG Carboxyhemoglobin 1.5 % (0.5-1.5) 09/26/17 05:27 POC ABG HHb (Measured) -0.2 % (0.0-5.0) L 09/26/17 05:27 ABG Methemoglobin 1.3 % (0.0-3.0) 09/26/17 05:27 Darin Test Pos 09/26/17 05:27 ABG Potassium 4.0 mmol/L (3.6-5.2) 09/25/17 23:33 A-a O2 Difference 9.0 mm/Hg 09/26/17 05:27 Respiratory Index 0 09/26/17 05:27 Hgb O2 Saturation 97.3 % (95.0-98.0) 09/26/17 05:27 Sodium 138.0 mmol/l (132-148) 09/25/17 23:33 Chloride 105.0 mmol/L (98-107) 09/25/17 23:33 Glucose 255 mg/dl (75-110) H 09/25/17 23:33 Lactate 3.4 mmol/L (0.7-2.1) H 09/25/17 23:33 Vent Mode Prvc 09/26/17 05:27 Mechanical Rate 22 09/26/17 05:27 FiO2 40.0 % 09/26/17 05:27 Tidal Volume 600 09/26/17 05:27 PEEP 5 09/26/17 05:27 Crit Value Called To Dr lutz 09/25/17 23:33 Crit Value Called By Jordyn petty rt 09/25/17 23:33 Crit Value Read Back Y 09/25/17 23:33 Blood Gas Notified Time 15 09/25/17 23:33 Sodium 139 mmol/L (132-148) 09/29/17 11:45 Potassium 4.2 mmol/L (3.6-5.2) 09/29/17 11:45 Chloride 103 mmol/L (98-107) 09/29/17 11:45 Carbon Dioxide 25 mmol/L (22-30) 09/29/17 11:45 Anion Gap 16 (10-20) 09/29/17 11:45 BUN 22 mg/dL (9-20) H 09/29/17 11:45 Creatinine 1.4 mg/dL (0.8-1.5) 09/29/17 11:45 Est GFR ( Amer) > 60 09/29/17 11:45 Est GFR (Non-Af Amer) 60 09/29/17 11:45 Random Glucose 195 mg/dL (75-110) H 09/29/17 11:45 Hemoglobin A1c 5.8 % (4.2-6.5) 09/27/17 06:17 Lactic Acid 3.5 mmol/L (0.7-2.1) H 09/28/17 11:08 Calcium 9.1 mg/dl (8.6-10.4) 09/29/17 11:45 Phosphorus 5.1 mg/dL (2.5-4.5) H 09/28/17 08:49 Magnesium 2.5 mg/dL (1.6-2.3) H 09/29/17 11:45 Total Bilirubin 0.6 mg/dL (0.2-1.3) 09/29/17 11:45 AST 128 U/L (17-59) H D 09/29/17 11:45 ALT 130 U/L (21-72) H 09/29/17 11:45 Alkaline Phosphatase 66 U/L (38-126) 09/29/17 11:45 Troponin I < 0.0120 ng/mL (0.00-0.120) 09/25/17 22:35 Total Protein 7.0 g/dL (6.3-8.3) 09/29/17 11:45 Albumin 3.7 g/dL (3.5-5.0) 09/29/17 11:45 Globulin 3.3 gm/dL (2.2-3.9) 09/29/17 11:45 Albumin/Globulin Ratio 1.1 (1.0-2.1) 09/29/17 11:45 Procalcitonin 0.72 NG/ML (0.19-0.49) H 09/28/17 08:49 Free T4 0.85 ng/dL (0.78-2.19) 09/27/17 09:52 Arterial Blood Potassium 4.0 mmol/L (3.6-5.2) 09/25/17 23:33 Urine Color Straw (YELLOW) 09/26/17 10:46 Urine Clarity Hazy (Clear) 09/26/17 10:46 Urine pH 5.0 (5.0-8.0) 09/26/17 10:46 Ur Specific [place] 1.003 (1.003-1.030) 09/26/17 10:46 Urine Protein Negative mg/dL (NEGATIVE) 09/26/17 10:46 Urine Glucose (UA) Negative mg/dL (Normal) 09/26/17 10:46 Urine Ketones Negative mg/dL (NEGATIVE) 09/26/17 10:46 Urine Blood 3+ (NEGATIVE) H 09/26/17 10:46 Urine Nitrate Negative (NEGATIVE) 09/26/17 10:46 Urine Bilirubin Negative (NEGATIVE) 09/26/17 10:46 Urine Urobilinogen Normal mg/dL (0.2-1.0) 09/26/17 10:46 Ur Leukocyte Esterase Neg Steven/uL (Negative) 09/26/17 10:46 Urine WBC (Auto) 1 /hpf (0-5) 09/26/17 10:46 Urine RBC (Auto) 2 /hpf (0-3) 09/26/17 10:46 Ur Squamous Epith Cells < 1 /hpf (0-5) 09/26/17 10:46 Uric Acid Crystals Few /hpf (<OCC) H 09/26/17 10:46 Urine Bacteria Rare (<OCC) 09/26/17 10:46 Urine Opiates Screen Negative (NEGATIVE) 09/25/17 23:57 Urine Methadone Screen Negative (NEGATIVE) 09/25/17 23:57 Ur Barbiturates Screen Negative (NEGATIVE) 09/25/17 23:57 Ur Phencyclidine Scrn Negative (NEGATIVE) 09/25/17 23:57 Ur Amphetamines Screen Negative (NEGATIVE) 09/25/17 23:57 U Benzodiazepines Scrn Negative (NEGATIVE) 09/25/17 23:57 U Oth Cocaine Metabols Negative (NEGATIVE) 09/25/17 23:57 U Cannabinoids Screen Positive (NEGATIVE) H 09/25/17 23:57 Attending/Attestation - Attestation I have personally seen and examined this patient.: Yes I have fully participated in the care of the patient.: Yes I have reviewed all pertinent clinical information, including history, physical exam and plan: Yes Notes (Text): Patient seen, examined, and case discussed with medical auditor. Agree with the resident note above. Patient was seen by myself this morning. Was set to be a possible discharge tomorrow pending improvement in LFTs and repeat lactate. However, patient wanted to leave against medical advice. Was informed by the resident. Patient has capacity to leave against medical advice. Risk of leaving prematurely during hospitalization discussed in detail.
[2017-09-29] MEDS ORDERED: MethylPREDNISolone 40 mg Vial IVP SCH (22:00)
--- NOTE | 2017-09-30 11:08 | CON ---
DATE: 09/28/2017 SUBJECTIVE: The patient is a 31-year-old male, chief complaint status ashtmaticus, . The patient is on p.r.n. The patient denies preventive inhaler, we will add collateral insurance. PHYSICAL EXAMINATION: GENERAL: The patient is awake, alert, and oriented. VITAL SIGNS: Temperature 98, pulse 90. HEENT: Within normal limits. NECK: Supple. CHEST: Symmetrical. HEART: Regular. ABDOMEN: Soft. EXTREMITIES: No edema. ASSESSMENT AND PLAN: The patient suffers from asthmaticus, bronchodilator, inhaler. Advair 250/50 mg twice a day. Wean the steroids. Anton Argueta MD
== END 2017-09-29 16:45 | disposition left against medical advice (07) | DRG 208 ==
LOC: C.ER 22:16 → C.9I 23:53 → C.6T 09-28 23:17
PROVIDERS: ADMIT Family Medicine; ATTEND Hospitalist
PROC: 5A1935Z Respiratory Ventilation, Less than 24 Consecutive Hours (ICD-10-PCS; principal; 2017-09-25)
PROC: 0BH17EZ Insertion of Endotracheal Airway into Trachea, Via Natural or Artificial Opening (ICD-10-PCS; 2017-09-25)
PROC: 5A09357 Assistance with Respiratory Ventilation, Less than 24 Consecutive Hours, Continuous Positive Airway Pressure (ICD-10-PCS; 2017-09-25)
DX: J45.52 Severe persistent asthma with status asthmaticus (principal); J96.01 Acute respiratory failure with hypoxia; J96.02 Acute respiratory failure with hypercapnia; N17.9 Acute kidney failure, unspecified; R65.10 Systemic inflammatory response syndrome (SIRS) of non-infectious origin without acute organ dysfunction; E87.5 Hyperkalemia; D72.825 Bandemia; F43.21 Adjustment disorder with depressed mood; I10 Essential (primary) hypertension; K21.9 Gastro-esophageal reflux disease without esophagitis; E74.39 Other disorders of intestinal carbohydrate absorption; R73.02 Impaired glucose tolerance (oral); F17.210 Nicotine dependence, cigarettes, uncomplicated; F12.10 Cannabis abuse, uncomplicated

== ENCOUNTER 2017-11-02 00:14 | Emergency (ER) | payer SELFPAY ==
[2017-11-02 00:14] VITALS: BMI 30.4
[2017-11-02 00:19] VITALS: BP 149/88; PULSE 87; TEMP 97.3
[2017-11-02] MEDS ORDERED: Albuterol-Ipratrop 3 mg / 0.5 (3 ml) UD INH STA ×3 (00:26→00:33)
[2017-11-02] MEDS ORDERED: Sodium Chloride 0.9% 1,000 ML IV ONE (00:32)
--- NOTE | 2017-11-02 00:35 | C.PDOC ---
History Of Present Illness 31 year old male with PMHx of asthma presents to the ED c/o feeling SOB. Patient reports she was wheezing for the past few days but last night worsened. Patient is also c/o occasional productive cough with brown sputum. Patient denies fever, chills, nausea, vomit, diarrhea, CP, recent travel, sick contacts. Chief Complaint (Nursing): Shortness Of Breath History Per: Patient History/Exam Limitations: no limitations Onset/Duration Of Symptoms: Days Current Symptoms Are (Timing): Still Present Initiating Event: Upper Respiratory Illness Quality: Pressure Exacerbating Factor(s): Coughing Current Respiratory Medications: See Home Med List Associated Symptoms: Productive Cough Recent travel outside of the [place]: No Additional History Per: Patient Past Medical History Reviewed: Historical Data, Nursing Documentation, Vital Signs Vital Signs: Last Vital Signs Temp 97.3 F L 11/02/17 00:17 Pulse 87 11/02/17 00:17 Resp 22 11/02/17 00:27 BP 149/88 11/02/17 00:17 Pulse Ox 97 11/02/17 02:05 - Medical History PMH: Asthma Surgical History: No Surg Hx - [facility] Procedures ASSISTANCE WITH RESPIRATORY VENTILATION, <24 HRS, CPAP (09/25/17) INSERTION OF ENDOTRACHEAL AIRWAY INTO TRACHEA, VIA OPENING (09/25/17) RESPIRATORY VENTILATION, LESS THAN 24 CONSECUTIVE HOURS (09/25/17) Family History: States: Unknown Family Hx - Social History Hx Tobacco Use: No Hx Alcohol Use: Yes Hx Substance Use: No (denies/ER record) - Immunization History Hx Tetanus Toxoid Vaccination: No Hx Influenza Vaccination: No Hx Pneumococcal Vaccination: No Review Of Systems Constitutional: Negative for: Fever, Chills ENT: Negative for: Nose Discharge, Nose Congestion Cardiovascular: Negative for: Chest Pain, Palpitations Respiratory: Positive for: Cough, Shortness of Breath, Sputum Gastrointestinal: Negative for: Nausea, Vomiting, Abdominal Pain Skin: Negative for: Rash Neurological: Negative for: Weakness, Numbness Physical Exam - Physical Exam Appears: Non-toxic, Other (mildly dyspnic) Skin: Normal Color, Warm, Dry Head: Atraumatic, Normacephalic Eye(s): bilateral: Normal Inspection Oral Mucosa: Moist Neck: Normal ROM, Supple Chest: Symmetrical Cardiovascular: Rhythm Regular Respiratory: No Accessory Muscle Use, No Rales, No Rhonchi, Wheezing (expiratory ) Gastrointestinal/Abdominal: Soft, No Tenderness, No Guarding, No Rebound Extremity: Normal ROM, No Tenderness, No Swelling Neurological/Psych: Oriented x3, Normal Speech Gait: Steady ED Course And Treatment - Laboratory Results Result Diagrams: 11/02/17 00:56 11/02/17 00:56 O2 Sat by Pulse Oximetry: 97 (ON RA) Pulse Ox Interpretation: Normal - Radiology CXR: Interpreted by Me, Viewed By Me CXR Interpretation: Yes: No Acute Disease, Other (normal chest film). No: Infiltrates Medical Decision Making Medical Decision Making: Plan: * EKG * CXR * Nebulizer treatment X3 * Solumedrol 125 mg IVP * IV fluids Disposition Counseled Patient/Family Regarding: Diagnosis - Disposition Referrals: [facility] [Outside] Disposition: HOME/ ROUTINE Disposition Time: 02:17 Condition: IMPROVED Prescriptions: Albuterol 0.083% [Albuterol 0.083% Inhal Erica (2.5 mg/3 ml) UD] 2.5 mg IH Q6 #30 neb Methylprednisolone [Medrol Dose Pack (21 tabs)] 4 mg PO DAILY #21 mg Instructions: Asthma in Adults Forms: [facility] (Haitian) - POA Present On Arrival: None - Clinical Impression Clinical Impression: Exacerbation of asthma - Scribe Statement The provider has reviewed the documentation as recorded by the Scribe Hammad Corea All medical record entries made by the Scribe were at my direction and personally dictated by me. I have reviewed the chart and agree that the record accurately reflects my personal performance of the history, physical exam, medical decision making, and the department course for this patient. I have also personally directed, reviewed, and agree with the discharge instructions and disposition.
[2017-11-02] MEDS ORDERED: Sodium Chloride 0.9% 1,000 ML ONE (00:39)
[2017-11-02 00:59] LABS: BASO # 0.1 K/uL (0.0-0.2); BASO % 0.9 % (0.0-2.0); EOS # 0.3 K/uL (0.0-0.7); EOS % 4.2 % (0.0-4.0); HEMOGLOBIN 14.2 g/dL (12.0-18.0); LYMPH # 2.8 K/uL (1.0-4.3); LYMPH % 36.9 % (20.0-40.0); MEAN CELL VOLUME 86.8 fL (80.0-94.0); MEAN CORPUSCULAR HEMOGLOBIN 30.4 pg (27.0-31.0); MEAN PLATELET VOLUME 7.8 fL (7.2-11.7); MONO # 0.7 K/uL (0.0-0.8); MONO % 9.7 % (0.0-10.0); NEUT # 3.7 K/uL (1.8-7.0); NEUT % 48.3 % (50.0-75.0); NRBC % 0.1 % (0.0-2.0); RBC 4.66 Mil/uL (4.40-5.90); RED CELL DISTRIBUTION WIDTH 14.1 % (11.5-14.5); WHITE BLOOD COUNT 7.6 K/uL (4.8-10.8)
[2017-11-02 01:12] LABS: ALB/GLOB RATIO 1.4 (1.0-2.1); ALBUMIN 3.9 g/dL (3.5-5.0); ALT/SGPT 51 U/L (21-72); AST/SGOT 28 U/L (17-59); BLOOD UREA NITROGEN 11 mg/dL (9-20); CALCIUM 8.3 mg/dl (8.6-10.4); GFR AFRICAN-AMERICAN > 60; GFR NON-AFRICAN AMERICAN > 60
[2017-11-02] MEDS ORDERED: Albuterol-Ipratrop 3 mg / 0.5 (3 ml) UD ONE (01:44)
[2017-11-02 02:55] VITALS: RESP 20; O2SAT 98
== END 2017-11-02 02:54 | disposition home or self-care (01) ==
LOC: C.ER 00:14
DX: J45.901 Unspecified asthma with (acute) exacerbation (principal)
CPT/HCPCS: 71046; 80053; 85025; 94640; 96361; 96374; 99284; J2930; J7030

== ENCOUNTER 2017-12-11 10:18 | Emergency (ER) | payer MEDICAID ==
[2017-12-11 10:18] VITALS: BMI 30.4
[2017-12-11 10:24] VITALS: O2SAT 96
[2017-12-11 10:35] VITALS: RESP 18
[2017-12-11] MEDS ORDERED: Albuterol-Ipratrop 3 mg / 0.5 (3 ml) UD INH STA (10:46)
[2017-12-11] MEDS ORDERED: Albuterol-Ipratrop 3 mg / 0.5 (3 ml) UD ONE ×2 (11:05→11:31)
--- NOTE | 2017-12-11 11:33 | RAD ---
HISTORY: cough COMPARISON: Chest x-ray performed 11/02/17 TECHNIQUE: Chest PA and lateral FINDINGS: LUNGS: No focal consolidation. Please note that chest x-ray has limited sensitivity for the detection of pulmonary masses. PLEURA: No significant pleural effusion identified. No definite pneumothorax . CARDIOVASCULAR: The cardiomediastinal silhouette appears within normal limits of size. OSSEOUS STRUCTURES: No acute osseous abnormality identified. VISUALIZED UPPER ABDOMEN: Unremarkable. OTHER FINDINGS: None. IMPRESSION: No focal consolidation, significant pleural effusion, or definite pneumothorax identified.
--- NOTE | 2017-12-11 11:36 | C.PDOC ---
History Of Present Illness 32 y/o male with history of Asthma presents to ED with c/o non productive cough for 2 days associated with wheezing. Patient reports he has been intubated once before and currently states he is non compliant with medication. Patient uses inhaler with no improvement and denies fever, chills or any other complaints at this time. Time Seen by Provider: 12/11/17 10:25 Chief Complaint (Nursing): Shortness Of Breath History Per: Patient History/Exam Limitations: no limitations Onset/Duration Of Symptoms: Days Current Symptoms Are (Timing): Still Present Past Medical History Reviewed: Historical Data, Nursing Documentation, Vital Signs Vital Signs: Last Vital Signs Temp 98 F 12/11/17 11:45 Pulse 85 12/11/17 11:45 Resp 18 12/11/17 11:45 BP 130/70 12/11/17 11:45 Pulse Ox 96 12/11/17 11:45 - Medical History PMH: Asthma Surgical History: No Surg Hx - [facility] Procedures ASSISTANCE WITH RESPIRATORY VENTILATION, <24 HRS, CPAP (09/25/17) INSERTION OF ENDOTRACHEAL AIRWAY INTO TRACHEA, VIA OPENING (09/25/17) RESPIRATORY VENTILATION, LESS THAN 24 CONSECUTIVE HOURS (09/25/17) Family History: States: No Known Family Hx - Social History Hx Tobacco Use: No Hx Alcohol Use: Yes Hx Substance Use: No (denies/ER record) - Immunization History Hx Tetanus Toxoid Vaccination: No Hx Influenza Vaccination: No Hx Pneumococcal Vaccination: No Review Of Systems Except As Marked, All Systems Reviewed And Found Negative. Respiratory: Positive for: Cough, Wheezing Physical Exam - Physical Exam Appears: Non-toxic, No Acute Distress Skin: Warm, Dry, No Rash Head: Atraumatic, Normacephalic Eye(s): bilateral: Normal Inspection Oral Mucosa: Moist Neck: Supple Cardiovascular: Rhythm Regular Respiratory: No Rales, No Rhonchi, Wheezing (expiratory bilateral) Gastrointestinal/Abdominal: Soft, No Tenderness, No Guarding, No Rebound Extremity: Normal ROM, Capillary Refill (<2 seconds\) Neurological/Psych: Oriented x3, Normal Speech, Normal Cognition ED Course And Treatment O2 Sat by Pulse Oximetry: 96 (RA) Pulse Ox Interpretation: Normal - Radiology CXR: Interpreted by Me, Viewed By Me CXR Interpretation: Yes: No Acute Disease. No: Infiltrates, COPD Medical Decision Making Medical Decision Making: Assessment: Asthma Exacerbation Disposition - Disposition Referrals: [facility] [Outside] Disposition: HOME/ ROUTINE Disposition Time: 11:34 Condition: IMPROVED Additional Instructions: follow up with your doctor or medical clinic within 2 days call to make an appointment take medications as prescribed return to ER if symptoms worsens or progress Prescriptions: Albuterol HFA [Ventolin HFA 90 mcg/actuation (8 g)] 2 puff IH [id number] #1 puff Albuterol 0.083% [Albuterol Sulfate 3 Ml] 3 ml IH Q6 PRN #50 neb PRN Reason: Cough And Congestion Fluticasone Propionate [Flovent Hfa] 12 gm IH BID #1 aer.w.adap predniSONE [predniSONE Tab] 50 mg PO DAILY #4 tab Instructions: Asthma in Adults Forms: General Discharge Instructions, [facility] (Irish), Work Excuse - Clinical Impression Clinical Impression: Asthma - Scribe Statement The provider has reviewed the documentation as recorded by the Dionne Murry All medical record entries made by the Emaniibjonathan were at my direction and personally dictated by me. I have reviewed the chart and agree that the record accurately reflects my personal performance of the history, physical exam, medical decision making, and the department course for this patient. I have also personally directed, reviewed, and agree with the discharge instructions and disposition.
[2017-12-11 12:07] VITALS: BP 130/70; PULSE 85; TEMP 98
== END 2017-12-11 11:45 | disposition home or self-care (01) ==
LOC: C.ER 10:18
DX: J45.909 Unspecified asthma, uncomplicated (principal); Z87.891 Personal history of nicotine dependence

== ENCOUNTER 2018-04-11 23:29 | Emergency (ER) | payer MEDICAID ==
[2018-04-11 23:29] VITALS: BMI 30.4
[2018-04-11] MEDS ORDERED: Albuterol-Ipratrop 3 mg / 0.5 (3 ml) UD INH STA (23:35)
[2018-04-11] MEDS ORDERED: Albuterol-Ipratrop 3 mg / 0.5 (3 ml) UD ONE ×2 (23:39→23:48)
--- NOTE | 2018-04-11 23:40 | C.PDOC ---
History Of Present Illness 32 year old male with PMHx of asthma presents to the ED for evaluation of asthma exacerbation. Patient states he ran out of his medications, went to see his PMD today but the wait was too long and never got them refilled. Patient reports he ran out of his nebulizers and pump. Patient denies fever, chill, headache, CP, palpitations, dizziness. Time Seen by Provider: 04/11/18 23:37 Chief Complaint (Nursing): Shortness Of Breath History Per: Patient History/Exam Limitations: no limitations Onset/Duration Of Symptoms: Days Current Symptoms Are (Timing): Still Present Preciptating Factors: Ran Out Of Meds Recent travel outside of the [place]: No Additional History Per: Patient - Asthma History Rescue Medications: See Home Medication List Past Medical History Reviewed: Historical Data, Nursing Documentation, Vital Signs Vital Signs: Last Vital Signs Temp 98.1 F 04/11/18 23:36 Pulse 77 04/11/18 23:36 Resp 22 04/11/18 23:39 BP 133/84 04/11/18 23:36 Pulse Ox 100 04/11/18 23:39 - Medical History PMH: Asthma Surgical History: No Surg Hx - [facility] Procedures ASSISTANCE WITH RESPIRATORY VENTILATION, <24 HRS, CPAP (09/25/17) INSERTION OF ENDOTRACHEAL AIRWAY INTO TRACHEA, VIA OPENING (09/25/17) RESPIRATORY VENTILATION, LESS THAN 24 CONSECUTIVE HOURS (09/25/17) Family History: States: Unknown Family Hx - Social History Hx Tobacco Use: No Hx Alcohol Use: Yes Hx Substance Use: Yes - Immunization History Hx Tetanus Toxoid Vaccination: No Hx Influenza Vaccination: No Hx Pneumococcal Vaccination: No Review Of Systems Constitutional: Negative for: Fever, Chills Eyes: Negative for: Vision Change Cardiovascular: Negative for: Chest Pain Respiratory: Positive for: Shortness of Breath, Wheezing. Negative for: Cough, Sputum Gastrointestinal: Negative for: Nausea, Vomiting, Abdominal Pain Skin: Negative for: Rash Neurological: Negative for: Weakness, Numbness, Headache, Dizziness Physical Exam - Physical Exam Appears: Non-toxic, No Acute Distress, Other (patient s/p neb x1 prior to my eval) Skin: Normal Color, Warm, Dry Head: Atraumatic, Normacephalic Eye(s): bilateral: Normal Inspection Oral Mucosa: Moist Neck: Normal ROM, Supple Chest: Symmetrical Cardiovascular: Rhythm Regular Respiratory: No Rales, No Rhonchi, Wheezing (expiratory), Other (no retractions, speaking in complete sentences) Gastrointestinal/Abdominal: Soft, No Tenderness, No Guarding, No Rebound Extremity: Normal ROM, No Tenderness, No Swelling Neurological/Psych: Oriented x3, Normal Speech, Normal Cognition Gait: Steady Additional Physical Exam Comments: patient s/p neb x1 prior to my eval ED Course And Treatment O2 Sat by Pulse Oximetry: 100 (ON RA) Pulse Ox Interpretation: Normal Medical Decision Making Medical Decision Making: Plan: * Duoneb * Prednisone 60 mg Po Disposition Counseled Patient/Family Regarding: Diagnosis, Need For Followup, Rx Given - Disposition Referrals: YOUR,PMD [Other] Disposition: HOME/ ROUTINE Disposition Time: 23:52 Condition: IMPROVED Prescriptions: Albuterol 0.083% [Albuterol Sulfate 3 Ml] 3 ml IH Q4 #30 neb Albuterol HFA [Ventolin HFA 90 mcg/actuation (8 g)] 1 puff IH Q4 #1 inhaler predniSONE [Prednisone] 60 mg PO DAILY #12 tab Instructions: Asthma, Adult (DC) Forms: [employer] (Maori) - Clinical Impression Clinical Impression: Asthma exacerbation - Scribe Statement The provider has reviewed the documentation as recorded by the Scribe Hammad Corea All medical record entries made by the Scribe were at my direction and personally dictated by me. I have reviewed the chart and agree that the record accurately reflects my personal performance of the history, physical exam, medical decision making, and the department course for this patient. I have also personally directed, reviewed, and agree with the discharge instructions and disposition.
[2018-04-11 23:43] VITALS: O2SAT 100
[2018-04-12] MEDS ORDERED: Albuterol-Ipratrop 3 mg / 0.5 (3 ml) UD ONE (00:09)
[2018-04-12] MEDS: Albuterol-Ipratrop 3 mg / 0.5 (3 ml) UD IH SCH (00:37)
[2018-04-12 01:36] VITALS: BP 124/88; PULSE 82; RESP 16; TEMP 98.2
== END 2018-04-12 00:58 | disposition home or self-care (01) ==
LOC: C.ER 23:29
DX: J45.901 Unspecified asthma with (acute) exacerbation (principal)

== ENCOUNTER 2018-07-10 18:38 | Emergency (ER) | payer MEDICAID ==
[2018-07-10 18:38] VITALS: BMI 30.4
[2018-07-10] MEDS ORDERED: Albuterol-Ipratrop 3 mg / 0.5 (3 ml) UD ONE ×2 (18:49→19:55)
[2018-07-10] MEDS ORDERED: Albuterol-Ipratrop 3 mg / 0.5 (3 ml) UD INH STA (18:53)
[2018-07-10] MEDS ORDERED: Albuterol 0.083% Inhal Sol (2.5 mg/3 mL) UD IH STA ×4 (19:11→20:45)
--- NOTE | 2018-07-10 19:47 | C.PDOC ---
History Of Present Illness 32 year old male presents with SOB, wheezing, and nonproductive cough for the past 2 days. Patient has been using his inhaler with no relief and has been trying to see his doctor today but was unable to reach them. He admits to a PMHx of asthma but no Hx of intubation, most recent steroid use was 1-2 months ago. Denies chest pain, fever, or palpitations. Time Seen by Provider: 07/10/18 19:05 Chief Complaint (Nursing): Shortness Of Breath History Per: Patient History/Exam Limitations: no limitations Onset/Duration Of Symptoms: Days (2) Current Symptoms Are (Timing): Still Present Current Respiratory Medications: See Home Med List Associated Symptoms: Other (SOB, Nonproductive cough, Wheezing. No palpitations.). denies: Fever, Chest Pain Recent travel outside of the [place]: No Past Medical History Reviewed: Historical Data, Nursing Documentation, Vital Signs Vital Signs: Last Vital Signs Temp 97.2 F L 07/10/18 18:44 Pulse 84 07/10/18 18:44 Resp 11 L 07/10/18 19:04 BP 131/80 07/10/18 18:44 Pulse Ox 99 07/10/18 19:04 - Medical History PMH: Asthma - [facility] Procedures ASSISTANCE WITH RESPIRATORY VENTILATION, <24 HRS, CPAP (09/25/17) INSERTION OF ENDOTRACHEAL AIRWAY INTO TRACHEA, VIA OPENING (09/25/17) RESPIRATORY VENTILATION, LESS THAN 24 CONSECUTIVE HOURS (09/25/17) Family History: States: Unknown Family Hx - Social History Hx Tobacco Use: No Hx Alcohol Use: Yes Hx Substance Use: Yes - Immunization History Hx Tetanus Toxoid Vaccination: No Hx Influenza Vaccination: No Hx Pneumococcal Vaccination: No Review Of Systems Except As Marked, All Systems Reviewed And Found Negative. Respiratory: Positive for: Cough, Shortness of Breath, Wheezing Physical Exam - Physical Exam Appears: Non-toxic, Other (Speaking in complete sentences) Skin: Normal Color, Warm Head: Atraumatic, Normacephalic Eye(s): bilateral: Normal Inspection Oral Mucosa: Moist Neck: Normal, Supple Chest: Symmetrical, No Tenderness Cardiovascular: Rhythm Regular Respiratory: No Rales, No Rhonchi, Wheezing (Diffuse bilaterally) Gastrointestinal/Abdominal: Soft, No Tenderness Extremity: No Pedal Edema Neurological/Psych: Oriented x3, Normal Speech ED Course And Treatment O2 Sat by Pulse Oximetry: 99 (Room air) Pulse Ox Interpretation: Normal Progress Note: CXR, solumedrol, nebs, and reeval. Disposition Counseled Patient/Family Regarding: Studies Performed, Diagnosis, Need For Followup, Rx Given - Disposition Referrals: Narendra Rodriguez, AGNES, DINKEY DISPATCHER [Advanced Practice Nurse] - Jemal Hurtado MD [Staff Provider] - Disposition: HOME/ ROUTINE Disposition Time: 22:20 Condition: STABLE Additional Instructions: FOLLOW UP WITH YOUR DOCTOR IN 1-2 DAYS, AND WITH STATION OPERATOR WITHIN 1 WEEK USE MEDICATIONS DIRECTED RETURN TO ER IF SYMPTOMS WORSEN Prescriptions: Albuterol 0.5% [Albuterol 0.5% Inhal Erica (2.5 mg/0.5 ml) UD] 2.5 mg IH Q6 PRN #1 bottle PRN Reason: Wheezing predniSONE [predniSONE Tab] 40 mg PO DAILY #10 tab Instructions: Asthma, Adult (DC) Forms: [employer] (Nicaraguan) Print Language: ECUADOREAN - Clinical Impression Clinical Impression: Asthma exacerbation - Scribe Statement The provider has reviewed the documentation as recorded by the Scribjonathan Teran All medical record entries made by the Scribe were at my direction and personally dictated by me. I have reviewed the chart and agree that the record accurately reflects my personal performance of the history, physical exam, medical decision making, and the department course for this patient. I have also personally directed, reviewed, and agree with the discharge instructions and disposition.
[2018-07-10] MEDS ORDERED: Albuterol 0.083% Inhal Sol (2.5 mg/3 mL) UD ONE ×2 (19:55→21:29)
[2018-07-10] MEDS ORDERED: Magnesium Sulfate 1 gm in D5W 1 GM/100 ML BAG IV ONE (20:45)
[2018-07-10] MEDS ORDERED: Magnesium Sulfate 1 gm in D5W 2 GM/200 ML BAG IVPB ONE (20:55)
[2018-07-10 22:38] VITALS: BP 150/83; PULSE 79; RESP 18; TEMP 97.8; O2SAT 100
--- NOTE | 2018-07-11 10:16 | RAD ---
Date of service: 07/10/2018 PROCEDURE: CHEST RADIOGRAPH, 1 VIEW HISTORY: cough COMPARISON: 12/11/2017. FINDINGS: LUNGS: The lungs are well inflated and clear. PLEURA: No pneumothorax or pleural effusion. CARDIOVASCULAR: The heart is normal in size. No aortic atherosclerotic calcifications present. OSSEOUS STRUCTURES: Within normal limits for the patient's age. VISUALIZED UPPER ABDOMEN: Normal. OTHER FINDINGS: None. IMPRESSION: No active pulmonary disease.
== END 2018-07-10 22:30 | disposition home or self-care (01) ==
LOC: C.ER 18:38
DX: J45.901 Unspecified asthma with (acute) exacerbation (principal)
CPT/HCPCS: 71045; 94640; 96374; 99285; J2930; J3475

== ENCOUNTER 2018-08-02 21:19 | Emergency (ER) | payer MEDICAID ==
[2018-08-02 21:19] VITALS: BMI 30.4
[2018-08-02 21:27] VITALS: BP 135/80; PULSE 92; RESP 20; TEMP 97.8
[2018-08-02 21:47] VITALS: O2SAT 98
[2018-08-02] MEDS ORDERED: Albuterol-Ipratrop 3 mg / 0.5 (3 ml) UD ONE ×2 (21:47→22:18)
[2018-08-02] MEDS ORDERED: Albuterol-Ipratrop 3 mg / 0.5 (3 ml) UD IH SCH (22:15)
--- NOTE | 2018-08-02 23:06 | C.PDOC ---
History Of Present Illness 32 year old male with PMHx of asthma presents to the ED c/o coughing and wheezing. Patient reports his asthma was triggered and has been using nebulizer at home with no relief. Patient denies fever, chills, CP, palpitations, nausea, vomit, weakness, numbness. Time Seen by Provider: 08/02/18 21:42 Chief Complaint (Nursing): Shortness Of Breath History Per: Patient History/Exam Limitations: no limitations Onset/Duration Of Symptoms: Hrs Current Symptoms Are (Timing): Still Present Initiating Event: Upper Respiratory Illness Quality: Tightness Exacerbating Factor(s): Coughing Current Respiratory Medications: See Home Med List Recent travel outside of the [place]: No Additional History Per: Patient Past Medical History Reviewed: Historical Data, Nursing Documentation, Vital Signs Vital Signs: Last Vital Signs Temp 97.8 F 08/02/18 21:22 Pulse 92 H 08/02/18 21:22 Resp 20 08/02/18 21:44 BP 135/80 08/02/18 21:22 Pulse Ox 98 08/02/18 21:44 - Medical History PMH: Asthma Surgical History: No Surg Hx - [facility] Procedures ASSISTANCE WITH RESPIRATORY VENTILATION, <24 HRS, CPAP (09/25/17) INSERTION OF ENDOTRACHEAL AIRWAY INTO TRACHEA, VIA OPENING (09/25/17) RESPIRATORY VENTILATION, LESS THAN 24 CONSECUTIVE HOURS (09/25/17) Family History: States: Unknown Family Hx - Social History Hx Tobacco Use: No Hx Alcohol Use: Yes Hx Substance Use: Yes - Immunization History Hx Tetanus Toxoid Vaccination: No Hx Influenza Vaccination: No Hx Pneumococcal Vaccination: No Review Of Systems Constitutional: Negative for: Fever, Chills Cardiovascular: Negative for: Chest Pain Respiratory: Positive for: Cough, Shortness of Breath, Wheezing Gastrointestinal: Negative for: Nausea, Vomiting, Abdominal Pain Skin: Negative for: Rash Neurological: Negative for: Weakness, Numbness, Headache Physical Exam - Physical Exam Appears: Non-toxic, No Acute Distress Skin: Normal Color, Warm, Dry Head: Atraumatic, Normacephalic Eye(s): bilateral: Normal Inspection Oral Mucosa: Moist Neck: Normal ROM, Supple Chest: Symmetrical Cardiovascular: Rhythm Regular Respiratory: Decreased Breath Sounds, No Accessory Muscle Use, No Rales, No Rhonchi, Wheezing (diffuse), Other (No retractions) Gastrointestinal/Abdominal: Soft, No Tenderness, No Guarding, No Rebound Extremity: Normal ROM, No Tenderness, No Swelling Neurological/Psych: Oriented x3, Normal Speech, Normal Cognition Gait: Steady ED Course And Treatment O2 Sat by Pulse Oximetry: 98 (ON RA) Pulse Ox Interpretation: Normal Progress Note: Plan: - Prednisone 60 mg PO. - Duoneb x 2. Patient reports imrpovement after medications given. Patient breathing without difficutly no longer wheezing. Patient advised to follow up with PMD. Disposition Counseled Patient/Family Regarding: Diagnosis, Need For Followup, Rx Given - Disposition Referrals: Hill Rodriguez DO [Doctor Osteopathy] - Disposition: HOME/ ROUTINE Disposition Time: 23:22 Condition: STABLE Additional Instructions: Please follow up with PMD Take medications as directed Return to ER if worse Prescriptions: Albuterol HFA [Ventolin HFA 90 mcg/actuation (8 g)] 2 puff IH [id number] #1 inhaler predniSONE [Prednisone] 40 mg PO DAILY #8 tab Instructions: Asthma, Adult (DC) Forms: [employer] (Mohawk) - Clinical Impression Clinical Impression: Asthma attack - PA / SAP DATA ANALYST / Resident Statement / has reviewed & agrees with the documentation as recorded. - Scribe Statement The provider has reviewed the documentation as recorded by the Scribe Hammad Corea All medical record entries made by the Emaniibjonathan were at my direction and personally dictated by me. I have reviewed the chart and agree that the record accurately reflects my personal performance of the history, physical exam, medical decision making, and the department course for this patient. I have also personally directed, reviewed, and agree with the discharge instructions and disposition.
== END 2018-08-02 23:39 | disposition home or self-care (01) ==
LOC: C.ER 21:19
DX: J45.909 Unspecified asthma, uncomplicated (principal)